=== PATIENT | female | born 1980 | race Caucasian/White ===

== ENCOUNTER 2021-06-21 19:00 | Emergency (ER) | payer OTHER, BC ==
[~2021-06-21] VITALS: Ht 172.7 cm; Wt 84.1 kg
[2021-06-22 00:06] LABS: BASOPHILS # (AUTO) 0.1 X10'3 (0-0.2); EOSINOPHILS # (AUTO) 0.3 X10'3 (0-0.9); MEAN CORPUSCULAR HEMOGLOBIN 18.3 PG (27.0-31.0); MONOCYTES # (AUTO) 0.5 X10'3 (0-0.9); WHITE BLOOD COUNT 5.9 X10'3 (4.5-11.0)
[2021-06-22 00:07] LABS: BASOPHILS % (AUTO) 1.7 % (0-1); EOSINOPHILS % (AUTO) 5.2 % (0-6); HEMATOCRIT 26.4 % (35.0-45.0); HEMOGLOBIN 7.8 g/dl (12.0-16.0); LYMPHOCYTES # (AUTO) 2.7 X10'3 (1.1-4.8); LYMPHOCYTES % (AUTO) 46.4 % (21-51); MEAN CORPUSCULAR HGB CONC 29.6 g/dL (33.0-36.5); MEAN CORPUSCULAR VOLUME 61.9 FL (78-98); MONOCYTES % (AUTO) 8.4 % (2-12); NEUTROPHILS # (AUTO) 2.3 X10'3 (1.8-7.7); NEUTROPHILS % (AUTO) 38.3 % (42-75); PLATELET COUNT 241 X10'3 (140-440); RED BLOOD COUNT 4.27 X10'6 (4.20-5.60); RED CELL DISTRIBUTION WIDTH 20.2 % (11.5-14.5)
[2021-06-22 00:11] LABS: ALBUMIN 3.9 G/DL (3.4-5.0); ANION GAP 13 (8-16); BLOOD UREA NITROGEN 8 MG/DL (7-18); BUN/CREATININE RATIO 12.1 (6.6-38.0); CALCIUM 8.9 MG/DL (8.5-10.1); CHLORIDE 104 MMOL/L (99-107); CREATININE 0.66 MG/DL (0.40-0.90); GLUCOSE 112 MG/DL (70-104); POTASSIUM 3.1 MMOL/L (3.5-5.1); SODIUM 145 MMOL/L (135-145); TOTAL CARBON DIOXIDE 28.5 MMOL/L (24-32); eGFR > 90 ML/MIN
[2021-06-22 00:12] LABS: HCG SERUM QL NEGATIVE
[2021-06-22 00:13] LABS: D-DIMER 0.67 MG/L FEU (0-0.50)
[2021-06-22 01:09] LABS: ANISOCYTOSIS 3+; PLATELET ESTIMATE NORMAL; POLYCHROMASIA FEW
[2021-06-22 01:10] LABS: MICROCYTOSIS 2+
[2021-06-22 01:12] LABS: ELLIPTOCYTES FEW; TARGET CELLS FEW
[2021-06-22] MEDS ORDERED: HYDR20OI TOP (04:07)
[2021-06-22 04:23] VITALS: BP 131/83
== END 2021-06-22 04:25 | disposition home or self-care (01) ==
LOC: ER 19:01
DX: L40.0 Psoriasis vulgaris (principal); R21 Rash and other nonspecific skin eruption; Z79.899 Other long term (current) drug therapy
CPT/HCPCS: 36415; 80048; 84703; 85008; 85025; 85379; 93971; 99284

== ENCOUNTER 2022-06-23 20:11 | Inpatient (IN) | payer OTHER, BC ==
[~2022-06-23] VITALS: Ht 170.2 cm; Wt 81.2 kg
[~2022-06-23 20:11] MED LIST: HYDR20OI TOP
[2022-06-23 20:54] LABS: BASOPHILS # (AUTO) 0.1 X10'3 (0-0.2); BASOPHILS % (AUTO) 1.5 % (0-1); EOSINOPHILS # (AUTO) 0.1 X10'3 (0-0.9); EOSINOPHILS % (AUTO) 1.1 % (0-6); LYMPHOCYTES # (AUTO) 0.7 X10'3 (1.1-4.8); LYMPHOCYTES % (AUTO) 14.3 % (21-51); MEAN CORPUSCULAR HEMOGLOBIN 18.3 PG (27.0-31.0); MEAN CORPUSCULAR HGB CONC 29.1 g/dL (33.0-36.5); MEAN CORPUSCULAR VOLUME 62.8 FL (78-98); MONOCYTES # (AUTO) 0.6 X10'3 (0-0.9); MONOCYTES % (AUTO) 11.7 % (2-12); NEUTROPHILS # (AUTO) 3.4 X10'3 (1.8-7.7); NEUTROPHILS % (AUTO) 71.4 % (42-75); PLATELET COUNT 156 X10'3 (140-440); RED BLOOD COUNT 4.37 X10'6 (4.20-5.60); RED CELL DISTRIBUTION WIDTH 20.9 % (11.5-14.5); WHITE BLOOD COUNT 4.8 X10'3 (4.5-11.0)
[2022-06-23 21:18] LABS: ALANINE AMINOTRANSFERASE 32 U/L (12-78); ALBUMIN/GLOBULIN RATIO 0.9 (1.1-1.5); ALKALINE PHOSPHATASE 80 IU/L (46-116); ANION GAP 21 (8-16); ASPARTATE AMINO TRANSFERASE 61 U/L (10-37); BILIRUBIN,TOTAL 1.6 MG/DL (0.1-1.0); BLOOD UREA NITROGEN 8 MG/DL (7-18); BUN/CREATININE RATIO 9.1 (6.6-38.0); CALCIUM 8.9 MG/DL (8.5-10.1); CHLORIDE 96 MMOL/L (99-107); CREATININE 0.88 MG/DL (0.40-0.90); GLUCOSE 160 MG/DL (70-104); MAGNESIUM 1.7 MG/DL (1.5-2.4); POTASSIUM 3.6 MMOL/L (3.5-5.1); SODIUM 136 MMOL/L (135-145); TOTAL CARBON DIOXIDE 19.3 MMOL/L (24-32); TOTAL PROTEIN 8.5 G/DL (6.4-8.2); eGFR 70 ML/MIN
[2022-06-23 21:23] LABS: HEMATOCRIT 24.5 % (35.0-45.0); HEMOGLOBIN 7.7 g/dl (12.0-16.0)
[2022-06-23 21:28] LABS: ANISOCYTOSIS 3+; MICROCYTOSIS 2+; PLATELET ESTIMATE NORMAL
[2022-06-23 21:29] LABS: ELLIPTOCYTES FEW; HYPOCHROMASIA 1+; TARGET CELLS FEW
--- NOTE | 2022-06-23 22:00 | NUR ---
I agree with Mimi Betancourt assessment.
[2022-06-23] MEDS ORDERED: normal saline 1000ML IV soln IVB ONE (22:20)
[2022-06-23] MEDS ORDERED: TETanus/Pertussis (Acell)/Diphther VAC/PF (Tdap-Adult) 0.5ml syringe IMVAC ONE (22:25)
[2022-06-24] MEDS ORDERED: ondansetron 4mg rapidly disintigrating tab PO ONE (00:10)
[2022-06-24] MEDS ORDERED: ondansetron/PF 4mg/2ml inj IV STA (00:23)
[2022-06-24] MEDS ORDERED: ondansetron/PF 4mg/2ml inj IV ONE (00:25)
[2022-06-24 00:34] LABS: CLARITY,URINE CLEAR (Clear); COLOR,URINE YELLOW (Yellow); GLUCOSE, URINE NEGATIVE (Neg); KETONES,URINE 15 mg/dl (Neg); LEUKOCYTE ESTERASE ,URINE NEGATIVE (Neg); NITRITES, URINE NEGATIVE (Neg); OCCULT BLOOD,URINE MODERATE (Neg); PROTEIN,URINE 30 mg/dl (Neg); URINE HCG NEGATIVE (NEG); UROBILINOGEN,URINE 0.2 E.U/dL (0.2-1.0)
--- NOTE | 2022-06-24 00:35 | NUR ---
PT VOMITED AFTER HAVING A PO ZOFRAN. MD JEAN NOTIFIED AND ORDER RECIEVED FOR IV ZOFRAN. PT REPORTS RELIEF AFTER IV DOSE.
[2022-06-24 00:44] LABS: UA COLLECTION TYPE CLN CATCH MIDSTREAM; WBC,URINE 0-4 /HPF (0-4)
[2022-06-24 00:45] LABS: BACTERIA,URINE FEW /HPF (Neg); SQUAMOUS EPITHELIAL CELL,UR FEW /LPF (FEW)
[2022-06-24 01:03] LABS: URINE AMPHETAMINE SCREEN NEGATIVE (Neg); URINE BARBITUATE SCREEN NEGATIVE (Neg); URINE BENZODIAZEPINES SCREEN NEGATIVE (Neg); URINE CANNABINOID SCREEN NEGATIVE (Neg); URINE COCAINE SCREEN NEGATIVE (Neg); URINE METHADONE SCREEN NEGATIVE (Neg); URINE OPIATE SCREEN NEGATIVE (Neg); URINE PHENCYCLIDINE SCREEN NEGATIVE (Neg)
[2022-06-24] MEDS ORDERED: ondansetron 4mg rapidly disintigrating tab PO PRN (02:45)
[2022-06-24] MEDS ORDERED: morphine 2 MG/ML inj. syringe IV PRN (02:45)
[2022-06-24] MEDS ORDERED: bisacodyl 10mg suppository rectal RC PRN (02:45)
[2022-06-24] MEDS ORDERED: magnesium hydroxide 30ml (MOM) UD suspension PO PRN (02:45)
[2022-06-24] MEDS ORDERED: diphenhydrAMINE 50 mg/ml inj IV PRN (02:45)
[2022-06-24] MEDS ORDERED: HYDROcodone/acetaminophen 5mg/325mg tablet PO PRN (02:45)
[2022-06-24] MEDS ORDERED: diphenhydrAMINE 25mg capsule PO PRN (02:45)
[2022-06-24] MEDS ORDERED: acetaminophen 325mg tablet PO PRN ×2 (02:45)
[2022-06-24] MEDS ORDERED: mag hydrox/Alum hydrox/simeth 30ml oral suspension PO PRN (02:45)
[2022-06-24] MEDS: normal saline 1000ml 1,000 ML IV SCH ×3 (03:04→22:21)
[2022-06-24] MEDS: octreotide inj. 500 MCG in normal saline 100ml IV soln 97.5 ML IV SCH ×2 (03:26→22:09)
[2022-06-24] MEDS ORDERED: BUPR150T8 PO (03:58)
[2022-06-24 04:39] LABS: HEMOGLOBIN A1C 5.6 % (4.5-6.2)
[2022-06-24 05:01] LABS: CREATINE KINASE 666 U/L (26-192); LIPASE 85 U/L (73-393); MAGNESIUM 1.8 MG/DL (1.5-2.4); PHOSPHORUS 3.2 MG/DL (2.3-4.5)
[2022-06-24] MEDS: pantoprazole 40MG/NS 100ML BAG 100 ML IV SCH ×4 (06:07→22:04)
--- NOTE | 2022-06-24 07:44 | NUR ---
received report from ed rn
[2022-06-24 08:20] VITALS: BP 149/84
[2022-06-24] MEDS: morphine 2 MG/ML inj. syringe IV PRN ×2 (08:41→17:23)
[2022-06-24] MEDS: docusate sod 100mg capsule PO SCH ×2 (08:45→19:44)
[2022-06-24 09:10] LABS: PROTHROMBIN TIME 16.4 SECONDS (9-12)
[2022-06-24 09:11] LABS: D-DIMER 0.62 MG/L (0.43-2.62); INR 1.6 INR; PARTIAL THROMBOPLASTIN TIME 33.4 SECONDS (24.5-30.9)
[2022-06-24] MEDS: ondansetron/PF 4mg/2ml inj IV PRN ×2 (10:57→17:21)
[2022-06-24 11:00] VITALS: BP 157/99
[2022-06-24] MEDS ORDERED: magnesium Cl slow-release 64mg tablet PO PRN (11:35)
[2022-06-24] MEDS ORDERED: potassium Cl 40MEQ/1/2NS 520ml 520 ML IV PRN (11:35)
[2022-06-24] MEDS ORDERED: potassium Cl 20 mEq SR tablet PO PRN ×2 (11:35)
[2022-06-24] MEDS ORDERED: magnesium 4gm in 100ml NS 100 ML IV PRN (11:35)
[2022-06-24 12:28] LABS: ALBUMIN 3.6 G/DL (3.4-5.0); ANION GAP 11 (8-16); BLOOD UREA NITROGEN 10 MG/DL (7-18); BUN/CREATININE RATIO 14.5 (6.6-38.0); CALCIUM 8.6 MG/DL (8.5-10.1); CHLORIDE 99 MMOL/L (99-107); CHOLESTEROL 143 MG/DL (0-200); CREATINE KINASE 578 U/L (26-192); CREATININE 0.69 MG/DL (0.40-0.90); GLUCOSE 135 MG/DL (70-104); HDL CHOLESTEROL 48 MG/DL (35-60); LDL CHOLESTEROL 82 MG/DL (50-100); POTASSIUM 3.7 MMOL/L (3.5-5.1); SODIUM 136 MMOL/L (135-145); TOTAL CARBON DIOXIDE 26.3 MMOL/L (24-32); TRIGLYCERIDES 62 MG/DL (20-135); eGFR > 90 ML/MIN
[2022-06-24] MEDS ORDERED: LORazepam 2 mg/ml vial IV ONE (13:10)
[2022-06-24] MEDS ORDERED: iohexol 350MG/ML 100ml bottle IV ONE (13:58)
[2022-06-24] MEDS ORDERED: LORazepam 2 mg/ml vial IV PRN (14:25)
[2022-06-24] MEDS ORDERED: LORazepam 1 MG tablet PO PRN (14:25)
[2022-06-24 16:51] LABS: MEAN PLATELET VOLUME 8.2 FL (7.4-10.4); PLATELET COUNT 102 X10'3 (140-440); WHITE BLOOD COUNT 3.6 X10'3 (4.5-11.0)
[2022-06-24 17:15] LABS: HEMATOCRIT 24.2 % (35.0-45.0); HEMOGLOBIN 7.3 g/dl (12.0-16.0); MEAN CORPUSCULAR HEMOGLOBIN 18.9 PG (27.0-31.0); MEAN CORPUSCULAR HGB CONC 30.1 g/dL (33.0-36.5); MEAN CORPUSCULAR VOLUME 62.6 FL (78-98); RED BLOOD COUNT 3.86 X10'6 (4.20-5.60)
[2022-06-24 18:00] VITALS: BP 142/84
--- NOTE | 2022-06-24 18:47 | NUR ---
gave report to valorie rodriguez
[2022-06-24] MEDS: K and/or MAG REPLACEMENT MC SCH (19:40)
[2022-06-24] MEDS ORDERED: temazepam 15mg capsule PO PRN (21:00)
[2022-06-24 22:00] VITALS: BP 145/78
[2022-06-24] MEDS: thiamine 100mg/ml 2ml inj. IV SCH (22:05)
[2022-06-25] VITALS (8 sets, daily range): BP systolic 139–178; BP diastolic 67–100
[2022-06-25] MEDS: pantoprazole 40MG/NS 100ML BAG 100 ML IV SCH ×4 (03:32→20:23)
--- NOTE | 2022-06-25 06:03 | NUR ---
Problems reprioritized. Patient report given, questions answered & plan of care reviewed with CHRISTINE Spaulding.
--- NOTE | 2022-06-25 06:05 | NUR ---
RECEIVED REPORT FROM CHRISTINE LANDRY
[2022-06-25 06:16] LABS: ALANINE AMINOTRANSFERASE 28 U/L (12-78); ALBUMIN 3.3 G/DL (3.4-5.0); ALBUMIN/GLOBULIN RATIO 0.9 (1.1-1.5); ALKALINE PHOSPHATASE 55 IU/L (46-116); ANION GAP 10 (8-16); ASPARTATE AMINO TRANSFERASE 60 U/L (10-37); BILIRUBIN,TOTAL 1.2 MG/DL (0.1-1.0); BLOOD UREA NITROGEN 11 MG/DL (7-18); BUN/CREATININE RATIO 14.9 (6.6-38.0); CALCIUM 8.4 MG/DL (8.5-10.1); CHLORIDE 102 MMOL/L (99-107); CHOL/HDL RATIO 3.7 (0.00-4.99); CHOLESTEROL 131 MG/DL (0-200); CREATININE 0.74 MG/DL (0.40-0.90); GLUCOSE 117 MG/DL (70-104); HDL CHOLESTEROL 35 MG/DL (35-60); LDL CHOLESTEROL 79 MG/DL (50-100); MAGNESIUM 2.1 MG/DL (1.5-2.4); PHOSPHORUS 2.6 MG/DL (2.3-4.5); POTASSIUM 3.9 MMOL/L (3.5-5.1); SODIUM 137 MMOL/L (135-145); TOTAL CARBON DIOXIDE 24.6 MMOL/L (24-32); TOTAL PROTEIN 7.1 G/DL (6.4-8.2); TRIGLYCERIDES 80 MG/DL (20-135); eGFR 86 ML/MIN
[2022-06-25 06:18] LABS: BASOPHILS % (AUTO) 0.7 % (0-1); EOSINOPHILS # (AUTO) 0.1 X10'3 (0-0.9); EOSINOPHILS % (AUTO) 1.4 % (0-6); LYMPHOCYTES % (AUTO) 26.9 % (21-51); MEAN CORPUSCULAR HEMOGLOBIN 17.5 PG (27.0-31.0); MEAN CORPUSCULAR HGB CONC 27.7 g/dL (33.0-36.5); MEAN CORPUSCULAR VOLUME 63.3 FL (78-98); MEAN PLATELET VOLUME 8.1 FL (7.4-10.4); MONOCYTES # (AUTO) 0.5 X10'3 (0-0.9); MONOCYTES % (AUTO) 13.2 % (2-12); NEUTROPHILS # (AUTO) 2.2 X10'3 (1.8-7.7); NEUTROPHILS % (AUTO) 57.8 % (42-75); PLATELET COUNT 124 X10'3 (140-440); RED BLOOD COUNT 3.81 X10'6 (4.20-5.60); RED CELL DISTRIBUTION WIDTH 20.4 % (11.5-14.5); WHITE BLOOD COUNT 3.8 X10'3 (4.5-11.0)
--- NOTE | 2022-06-25 06:20 | NUR ---
SENT A PAGE ABOUT PT LOW H & H, NO NEW ORDERS AT THIS TIME
[2022-06-25 06:27] LABS: HEMOGLOBIN 6.7 g/dl (12.0-16.0)
[2022-06-25 06:59] LABS: HEMATOCRIT 22.6 % (35.0-45.0)
[2022-06-25] MEDS ORDERED: folic acid 1mg/0.2ml inj IV SCH (08:00)
[2022-06-25] MEDS: K and/or MAG REPLACEMENT MC SCH ×2 (08:00→20:00)
[2022-06-25] MEDS: ondansetron/PF 4mg/2ml inj IV PRN ×3 (08:17→20:54)
[2022-06-25] MEDS: morphine 2 MG/ML inj. syringe IV PRN ×3 (08:19→20:54)
[2022-06-25] MEDS: thiamine 100mg/ml 2ml inj. IV SCH ×3 (08:22→20:34)
[2022-06-25] MEDS: docusate sod 100mg capsule PO SCH ×2 (08:24→20:34)
[2022-06-25] MEDS: multivitamins, therapeutics tablet PO SCH (08:25)
[2022-06-25] MEDS: normal saline 1000ml 1,000 ML IV SCH ×2 (08:30→23:37)
--- NOTE | 2022-06-25 08:46 | NUR ---
Malnutrition consult: Pt admitted w/ seizures. Pt does not think she has lost significant amount of wt recently. Appears WD/WN. Has normal muscle strength, no edema noted. Currently NPO. Pt does not meet minimum criteria for malnutrition at this time. Recommend advancing to Regular diet. Addendum: 06/25/22 at [address] Amended: Links added.
[2022-06-25 10:04] LABS: PLATELET ESTIMATE DECREASED
[2022-06-25 10:05] LABS: ANISOCYTOSIS 3+; HYPOCHROMASIA 2+; MICROCYTOSIS 2+
[2022-06-25 10:06] LABS: POLYCHROMASIA 1+
--- NOTE | 2022-06-25 10:23 | NUR ---
1000 sent a page again to about pt low h and h, no new orders at this time
[2022-06-25 13:05] LABS: HEMATOCRIT 23.6 % (35.0-45.0); HEMOGLOBIN 7.3 g/dl (12.0-16.0); MEAN CORPUSCULAR HEMOGLOBIN 18.9 PG (27.0-31.0); MEAN CORPUSCULAR HGB CONC 30.8 g/dL (33.0-36.5); MEAN CORPUSCULAR VOLUME 61.4 FL (78-98); PLATELET COUNT 140 X10'3 (140-440); RED BLOOD COUNT 3.85 X10'6 (4.20-5.60); RED CELL DISTRIBUTION WIDTH 19.8 % (11.5-14.5); WHITE BLOOD COUNT 4.5 X10'3 (4.5-11.0)
[2022-06-25] MEDS ORDERED: FENTANYL CITRATE/PF 50 MCG/1 ML VIAL ONE (15:33)
[2022-06-25] MEDS ORDERED: LIDOcaine Viscous 15ml cup ONE (15:33)
[2022-06-25] MEDS ORDERED: MIDAZolam 1 MG/ML 5ML VIAL ONE (15:33)
--- NOTE | 2022-06-25 15:36 | NUR ---
PT WHEELED DOWN TO GI LAB
--- NOTE | 2022-06-25 18:10 | NUR ---
Patient in room [facility]. I have received report from CHRISTINE Spaulding and had the opportunity to ask questions and assume patient care.
--- NOTE | 2022-06-25 18:11 | NUR ---
GAVE REPORT TO CHRISTINE KARIMI PT NOT ON FLOOR YET FROM GI LAB
[2022-06-25] MEDS: octreotide inj. 500 MCG in normal saline 100ml IV soln 97.5 ML IV SCH (20:24)
[2022-06-25] MEDS: sodium ferric gluc complex inj 125 MG in normal saline 100ml IV soln 100 ML IV SCH (23:37)
[2022-06-26] VITALS (9 sets, daily range): BP systolic 148–166; BP diastolic 74–95
[2022-06-26] MEDS: ondansetron/PF 4mg/2ml inj IV PRN (05:45)
[2022-06-26] MEDS: morphine 2 MG/ML inj. syringe IV PRN (05:45)
--- NOTE | 2022-06-26 06:15 | NUR ---
Problems reprioritized. Patient report given, questions answered & plan of care reviewed with CHRISTINE Healy.
[2022-06-26 06:31] LABS: BASOPHILS # (AUTO) 0.1 X10'3 (0-0.2); EOSINOPHILS # (AUTO) 0.1 X10'3 (0-0.9); EOSINOPHILS % (AUTO) 2.1 % (0-6); HEMATOCRIT 24.2 % (35.0-45.0); HEMOGLOBIN 7.1 g/dl (12.0-16.0); LYMPHOCYTES # (AUTO) 1.1 X10'3 (1.1-4.8); LYMPHOCYTES % (AUTO) 20.3 % (21-51); MEAN CORPUSCULAR HEMOGLOBIN 18.5 PG (27.0-31.0); MEAN CORPUSCULAR HGB CONC 29.2 g/dL (33.0-36.5); MEAN CORPUSCULAR VOLUME 63.2 FL (78-98); MEAN PLATELET VOLUME 7.9 FL (7.4-10.4); MONOCYTES # (AUTO) 0.6 X10'3 (0-0.9); MONOCYTES % (AUTO) 11.4 % (2-12); NEUTROPHILS # (AUTO) 3.6 X10'3 (1.8-7.7); NEUTROPHILS % (AUTO) 65.2 % (42-75); PLATELET COUNT 142 X10'3 (140-440); RED BLOOD COUNT 3.84 X10'6 (4.20-5.60); RED CELL DISTRIBUTION WIDTH 20.1 % (11.5-14.5); WHITE BLOOD COUNT 5.5 X10'3 (4.5-11.0)
--- NOTE | 2022-06-26 07:16 | NUR ---
Patient in room [facility]. I have received report from Josi KING and had the opportunity to ask questions and assume patient care.
[2022-06-26 07:26] LABS: ALANINE AMINOTRANSFERASE 28 U/L (12-78); ALBUMIN 3.4 G/DL (3.4-5.0); ALBUMIN/GLOBULIN RATIO 0.9 (1.1-1.5); ALKALINE PHOSPHATASE 54 IU/L (46-116); ANION GAP 12 (8-16); ASPARTATE AMINO TRANSFERASE 53 U/L (10-37); BILIRUBIN,TOTAL 1.3 MG/DL (0.1-1.0); BLOOD UREA NITROGEN 10 MG/DL (7-18); BUN/CREATININE RATIO 13.9 (6.6-38.0); CALCIUM 8.5 MG/DL (8.5-10.1); CHLORIDE 99 MMOL/L (99-107); CREATININE 0.72 MG/DL (0.40-0.90); FERRITIN 18 NG/ML (8-252); GLUCOSE 85 MG/DL (70-104); MAGNESIUM 1.8 MG/DL (1.5-2.4); PHOSPHORUS 2.4 MG/DL (2.3-4.5); POTASSIUM 3.5 MMOL/L (3.5-5.1); SODIUM 135 MMOL/L (135-145); TOTAL CARBON DIOXIDE 24.3 MMOL/L (24-32); TOTAL PROTEIN 7.3 G/DL (6.4-8.2); eGFR 89 ML/MIN
[2022-06-26 07:57] LABS: % IRON SATURATION 12 % (11-46); IRON 49 UG/DL (49-151); TOTAL IRON BINDING CAPACITY 411 UG/DL (259-388)
[2022-06-26] MEDS: K and/or MAG REPLACEMENT MC SCH ×2 (08:00→20:00)
[2022-06-26] MEDS: pantoprazole 40mg Tablet.DR PO SCH ×2 (09:05→21:21)
[2022-06-26] MEDS: docusate sod 100mg capsule PO SCH ×2 (09:05→21:20)
[2022-06-26] MEDS: multivitamins, therapeutics tablet PO SCH (09:05)
[2022-06-26] MEDS: thiamine 100mg/ml 2ml inj. IV SCH (09:05)
[2022-06-26] MEDS: sodium ferric gluc complex inj 125 MG in normal saline 100ml IV soln 100 ML IV SCH (09:09)
--- NOTE | 2022-06-26 12:06 | NUR ---
Message: Monet Surg [phone] Re: [facility] pharmacy needs a new dose to change from IV thiamine to PO did you want 100 mg Thiamine PO daily
[2022-06-26 12:24] LABS: PLATELET COUNT 127 X10'3 (140-440); WHITE BLOOD COUNT 5.4 X10'3 (4.5-11.0)
[2022-06-26 12:41] LABS: RED BLOOD COUNT 3.47 X10'6 (4.20-5.60)
[2022-06-26 12:42] LABS: MEAN CORPUSCULAR HEMOGLOBIN 18.7 PG (27.0-31.0); MEAN CORPUSCULAR HGB CONC 30.4 g/dL (33.0-36.5); MEAN CORPUSCULAR VOLUME 61.6 FL (78-98); RED CELL DISTRIBUTION WIDTH 19.7 % (11.5-14.5)
[2022-06-26] MEDS: folic acid 1mg tablet PO SCH (12:44)
[2022-06-26 12:45] LABS: HEMATOCRIT 21.4 % (35.0-45.0); HEMOGLOBIN 6.5 g/dl (12.0-16.0)
--- NOTE | 2022-06-26 13:09 | NUR ---
Message: Monet Christianson [phone] Re: [facility] H&H 6.11/25.4 Addendum: 06/26/22 at 1311 by Monet Perez RN Received orders for 1 unit blood
[2022-06-26] MEDS: thiamine 100mg tablet PO SCH ×2 (14:13→21:21)
[2022-06-26] MEDS: HYDROcodone/acetaminophen 10/325mg tab PO PRN ×2 (16:36→21:26)
--- NOTE | 2022-06-26 18:05 | NUR ---
Patient in room [facility]. I have received report from CHRISTINE Healy and had the opportunity to ask questions and assume patient care.
--- NOTE | 2022-06-26 18:43 | NUR ---
Problems reprioritized. Patient report given, questions answered & plan of care reviewed with Josi KING.
[2022-06-26 22:53] LABS: HEMATOCRIT 26.1 % (35.0-45.0); HEMOGLOBIN 7.7 g/dl (12.0-16.0); MEAN CORPUSCULAR HEMOGLOBIN 18.5 PG (27.0-31.0); MEAN CORPUSCULAR HGB CONC 29.6 g/dL (33.0-36.5); MEAN CORPUSCULAR VOLUME 62.2 FL (78-98); MEAN PLATELET VOLUME 8.1 FL (7.4-10.4); PLATELET COUNT 137 X10'3 (140-440); RED BLOOD COUNT 4.19 X10'6 (4.20-5.60); RED CELL DISTRIBUTION WIDTH 19.5 % (11.5-14.5)
[2022-06-27 06:00] VITALS: BP 152/81
--- NOTE | 2022-06-27 06:10 | NUR ---
Problems reprioritized. Patient report given, questions answered & plan of care reviewed with CHRISTINE Healy.
[2022-06-27 06:49] LABS: BASOPHILS % (AUTO) 0.9 % (0-1); EOSINOPHILS # (AUTO) 0.2 X10'3 (0-0.9); EOSINOPHILS % (AUTO) 4.4 % (0-6); LYMPHOCYTES # (AUTO) 0.9 X10'3 (1.1-4.8); LYMPHOCYTES % (AUTO) 18.6 % (21-51); MEAN PLATELET VOLUME 8.2 FL (7.4-10.4); MONOCYTES # (AUTO) 0.7 X10'3 (0-0.9); MONOCYTES % (AUTO) 14.1 % (2-12); NEUTROPHILS # (AUTO) 2.9 X10'3 (1.8-7.7); PLATELET COUNT 133 X10'3 (140-440); WHITE BLOOD COUNT 4.6 X10'3 (4.5-11.0)
--- NOTE | 2022-06-27 07:07 | NUR ---
Patient in room [facility]. I have received report from Josi KING and had the opportunity to ask questions and assume patient care.
[2022-06-27 07:14] LABS: HEMATOCRIT 25.3 % (35.0-45.0); HEMOGLOBIN 7.7 g/dl (12.0-16.0); MEAN CORPUSCULAR HEMOGLOBIN 18.9 PG (27.0-31.0); MEAN CORPUSCULAR HGB CONC 30.5 g/dL (33.0-36.5); MEAN CORPUSCULAR VOLUME 62.1 FL (78-98); RED BLOOD COUNT 4.07 X10'6 (4.20-5.60)
[2022-06-27 07:25] LABS: ALANINE AMINOTRANSFERASE 26 U/L (12-78); ALBUMIN 3.3 G/DL (3.4-5.0); ALBUMIN/GLOBULIN RATIO 0.8 (1.1-1.5); ALKALINE PHOSPHATASE 62 IU/L (46-116); ANION GAP 12 (8-16); ASPARTATE AMINO TRANSFERASE 40 U/L (10-37); BILIRUBIN,TOTAL 1.6 MG/DL (0.1-1.0); BLOOD UREA NITROGEN 6 MG/DL (7-18); BUN/CREATININE RATIO 8.7 (6.6-38.0); CALCIUM 8.6 MG/DL (8.5-10.1); CHLORIDE 97 MMOL/L (99-107); CREATININE 0.69 MG/DL (0.40-0.90); GLUCOSE 87 MG/DL (70-104); MAGNESIUM 1.7 MG/DL (1.5-2.4); PHOSPHORUS 3.2 MG/DL (2.3-4.5); POTASSIUM 3.1 MMOL/L (3.5-5.1); SODIUM 133 MMOL/L (135-145); TOTAL CARBON DIOXIDE 24.3 MMOL/L (24-32); TOTAL PROTEIN 7.2 G/DL (6.4-8.2); eGFR > 90 ML/MIN
[2022-06-27] MEDS: multivitamins, therapeutics tablet PO SCH (08:00)
[2022-06-27] MEDS: K and/or MAG REPLACEMENT MC SCH (08:00)
[2022-06-27 08:02] LABS: PLATELET ESTIMATE DECREASED
[2022-06-27 08:08] LABS: ANISOCYTOSIS 2+; HYPOCHROMASIA 1+; MICROCYTOSIS 2+; POLYCHROMASIA 2+
[2022-06-27] MEDS: HYDROcodone/acetaminophen 10/325mg tab PO PRN ×2 (09:12→13:24)
[2022-06-27] MEDS: pantoprazole 40mg Tablet.DR PO SCH (09:13)
[2022-06-27] MEDS: docusate sod 100mg capsule PO SCH (09:14)
[2022-06-27] MEDS: thiamine 100mg tablet PO SCH ×2 (09:14→13:24)
[2022-06-27] MEDS: folic acid 1mg tablet PO SCH (09:14)
[2022-06-27] MEDS: sodium ferric gluc complex inj 125 MG in normal saline 100ml IV soln 100 ML IV SCH (09:15)
[2022-06-27 10:00] VITALS: BP 156/89
--- NOTE | 2022-06-27 10:23 | NUR ---
Met with patient for alcohol use and to see if patient wanted any resources for treatment options. Patient has not drank for a week. She got on medication to help her stop drinking. She declined resources from me.
--- NOTE | 2022-06-27 10:33 | NUR ---
Paged Dr Gutierrez patient requesting a muscle relaxant for her spasm to left rib area.
[2022-06-27] MEDS ORDERED: potassium Cl 20 mEq SR tablet PO STA (12:29)
[2022-06-27] MEDS ORDERED: THIA50TA10 PO (13:40)
[2022-06-27] MEDS ORDERED: POTA-207 PO (13:40)
[2022-06-27] MEDS ORDERED: PANT40TA54 PO (13:40)
[2022-06-27] MEDS ORDERED: FERR325T28 PO (13:40)
[2022-06-27] MEDS ORDERED: FOLI1TAB27 PO (13:40)
[2022-06-27] MEDS ORDERED: MULT-25 PO (13:40)
[2022-06-27] MEDS ORDERED: HYDR-3965 PO (13:40)
[2022-06-27] MEDS ORDERED: ASCO-134 PO (13:40)
[2022-06-27] MEDS ORDERED: CYCL-1 PO (13:40)
[2022-06-28] MEDS ORDERED: thiamine 100mg tablet PO SCH (08:00)
[2022-06-30 15:20] LABS: T-TRANSGLUTAMINASE IGA <2 U/mL (0-3)
== END 2022-06-27 14:50 | disposition home or self-care (01) | DRG 100 ==
LOC: ER 20:12 → ED HOLD 06-24 02:49 → SUR 3N 06-24 07:58
PROVIDERS: ADMIT Family Medicine; ATTEND Family Medicine
PROC: 3E0234Z Introduction of Serum, Toxoid and Vaccine into Muscle, Percutaneous Approach (ICD-10-PCS; 2022-06-23)
PROC: 4A00X4Z Measurement of Central Nervous Electrical Activity, External Approach (ICD-10-PCS; 2022-06-24)
PROC: B3251ZZ Computerized Tomography (CT Scan) of Bilateral Common Carotid Arteries using Low Osmolar Contrast (ICD-10-PCS; 2022-06-24)
PROC: B32G1ZZ Computerized Tomography (CT Scan) of Bilateral Vertebral Arteries using Low Osmolar Contrast (ICD-10-PCS; 2022-06-24)
PROC: B32R1ZZ Computerized Tomography (CT Scan) of Intracranial Arteries using Low Osmolar Contrast (ICD-10-PCS; 2022-06-24)
PROC: B3281ZZ Computerized Tomography (CT Scan) of Bilateral Internal Carotid Arteries using Low Osmolar Contrast (ICD-10-PCS; 2022-06-24)
PROC: 0DB98ZX Excision of Duodenum, Via Natural or Artificial Opening Endoscopic, Diagnostic (ICD-10-PCS; principal; 2022-06-25)
PROC: 0DB78ZX Excision of Stomach, Pylorus, Via Natural or Artificial Opening Endoscopic, Diagnostic (ICD-10-PCS; 2022-06-25)
PROC: 0DB48ZX Excision of Esophagogastric Junction, Via Natural or Artificial Opening Endoscopic, Diagnostic (ICD-10-PCS; 2022-06-25)
PROC: 30233N1 Transfusion of Nonautologous Red Blood Cells into Peripheral Vein, Percutaneous Approach (ICD-10-PCS; 2022-06-26)
DX: G40.509 Epileptic seizures related to external causes, not intractable, without status epilepticus (principal); G92.8 Other toxic encephalopathy; K29.81 Duodenitis with bleeding; D62 Acute posthemorrhagic anemia; E87.20 Acidosis, unspecified; E86.0 Dehydration; I10 Essential (primary) hypertension; Z20.822 Contact with and (suspected) exposure to COVID-19; W18.39XA Other fall on same level, initial encounter; K31.89 Other diseases of stomach and duodenum; K21.00 Gastro-esophageal reflux disease with esophagitis, without bleeding; K57.30 Diverticulosis of large intestine without perforation or abscess without bleeding; F10.20 Alcohol dependence, uncomplicated; N92.1 Excessive and frequent menstruation with irregular cycle; K76.0 Fatty (change of) liver, not elsewhere classified; D50.9 Iron deficiency anemia, unspecified; S00.81XA Abrasion of other part of head, initial encounter; R16.1 Splenomegaly, not elsewhere classified; T43.295A Adverse effect of other antidepressants, initial encounter; K44.9 Diaphragmatic hernia without obstruction or gangrene; L40.9 Psoriasis, unspecified; R41.3 Other amnesia; R82.4 Acetonuria; Z87.891 Personal history of nicotine dependence; Z23 Encounter for immunization; Y93.89 Activity, other specified; Y92.098 Other place in other non-institutional residence as the place of occurrence of the external cause; Y99.8 Other external cause status; Z71.41 Alcohol abuse counseling and surveillance of alcoholic
CPT/HCPCS: 36415; 36430; 43239; 70450; 70498; 70551; 71046; 74176; 80048; 80053; 80061; 80305; 81001; 81025; 82140; 82550; 82728; 82948; 83036; 83520; 83540; 83550; 83690; 83735; 83880; 84100; 84443; 84484; 85008; 85025; 85027; 85610; 86885; 86900; 86901; 86920; 87081; 87811; 90471; 90715; 93005; 93306; 95816; 96374; 99152; 99285; A4620; C9113; G0378; J2060; J2250; J2270; J2354; J2405; J2916; J3010; J3411; J3490; J7030; J7040; P9016; Q9967

== ENCOUNTER 2024-04-04 13:34 | Emergency (ER) | payer BC, OTHER ==
[2024-04-04] VITALS (7 sets, daily range): BP systolic 122–132; BP diastolic 81–93; PULSE 93–99; RESP 15–16; TEMP 98.1–98.6; O2SAT 100
[~2024-04-04] VITALS: Ht 172.7 cm; Wt 77.9 kg
[~2024-04-04 13:34] MED LIST changes: +ASCO-134 PO; +CYCL-1 PO; +FOLI1TAB27 PO; -HYDR20OI TOP; +MULT-25 PO; +PANT40TA54 PO; +THIA50TA10 PO
[2024-04-04 14:38] LABS: BASOPHILS # (AUTO) 0.1 X10'3 (0-0.2); EOSINOPHILS # (AUTO) 0.1 X10'3 (0-0.9); EOSINOPHILS % (AUTO) 1.6 % (0-6); LYMPHOCYTES # (AUTO) 1.9 X10'3 (1.1-4.8); MEAN CORPUSCULAR HGB CONC 27.1 g/dL (33.0-36.5); MONOCYTES # (AUTO) 0.4 X10'3 (0-0.9); NEUTROPHILS # (AUTO) 1.3 X10'3 (1.8-7.7); WHITE BLOOD COUNT 3.7 X10'3 (4.5-11.0)
[2024-04-04 14:41] LABS: BASOPHILS % (AUTO) 1.9 % (0-1); LYMPHOCYTES % (AUTO) 50.6 % (21-51); MEAN CORPUSCULAR HEMOGLOBIN 15.5 PG (27.0-31.0); MEAN CORPUSCULAR VOLUME 57.1 FL (78-98); MEAN PLATELET VOLUME 8.1 FL (7.4-10.4); MONOCYTES % (AUTO) 10.7 % (2-12); NEUTROPHILS % (AUTO) 35.2 % (42-75); PLATELET COUNT 173 X10'3 (140-440); RED CELL DISTRIBUTION WIDTH 20.2 % (11.5-14.5)
[2024-04-04 14:54] LABS: ALANINE AMINOTRANSFERASE 22 U/L (12-78); ALBUMIN 3.6 G/DL (3.4-5.0); ALBUMIN/GLOBULIN RATIO 0.8 (1.1-1.5); ALKALINE PHOSPHATASE 59 IU/L (46-116); ANION GAP 9 (8-16); ASPARTATE AMINO TRANSFERASE 61 U/L (10-37); BILIRUBIN,TOTAL 0.7 MG/DL (0.1-1.0); BLOOD UREA NITROGEN 8 MG/DL (7-18); BUN/CREATININE RATIO 12.3 (10.0-20.0); CALCIUM 8.5 MG/DL (8.5-10.1); CHLORIDE 101 MMOL/L (99-107); CREATININE 0.65 MG/DL (0.40-0.90); GLUCOSE 97 MG/DL (70-104); POTASSIUM 3.1 MMOL/L (3.5-5.1); SODIUM 139 MMOL/L (135-145); TOTAL CARBON DIOXIDE 29.1 MMOL/L (24-32); TOTAL PROTEIN 8.3 G/DL (6.4-8.2); eCRCL 111 ML/MIN; eGFR > 90 ML/MIN
[2024-04-04 14:57] LABS: HEMOGLOBIN 6.5 g/dl (12.0-16.0)
[2024-04-04 15:17] LABS: PLATELET ESTIMATE NORMAL
[2024-04-04 15:19] LABS: ANISOCYTOSIS 3+; HYPOCHROMASIA 3+; MICROCYTOSIS 3+; POLYCHROMASIA 1+; TEAR DROP CELLS 1+
[2024-04-04 15:20] LABS: TARGET CELLS FEW
[2024-04-04 15:21] LABS: SCHISTOCYTES FEW
== END 2024-04-04 19:14 | disposition home or self-care (01) ==
LOC: ER 13:35
DX: D64.9 Anemia, unspecified (principal); D50.8 Other iron deficiency anemias; Z72.89 Other problems related to lifestyle; Z79.899 Other long term (current) drug therapy
CPT/HCPCS: 36415; 36430; 80053; 85008; 85025; 86885; 86900; 86901; 86920; 99285; P9016

== ENCOUNTER 2024-06-09 07:04 | Inpatient (IN) | payer OTHER ==
[~2024-06-09] VITALS: Ht 172.7 cm; Wt 80.0 kg
[2024-06-09] VITALS (15 sets, daily range): BP systolic 118–149; BP diastolic 70–92; PULSE 102–150; RESP 15–24; TEMP 98.1–99.1; O2SAT 98–100
[2024-06-09 08:07] LABS: ALANINE AMINOTRANSFERASE 22 U/L (12-78); ALBUMIN 3.4 G/DL (3.4-5.0); ALBUMIN/GLOBULIN RATIO 0.8 (1.1-1.5); ALKALINE PHOSPHATASE 50 IU/L (46-116); AMYLASE 19 U/L (25-115); ANION GAP 15 (8-16); ASPARTATE AMINO TRANSFERASE 35 U/L (10-37); BILIRUBIN,TOTAL 1.3 MG/DL (0.1-1.0); BLOOD UREA NITROGEN 11 MG/DL (7-18); BUN/CREATININE RATIO 10.7 (10.0-20.0); CALCIUM 8.5 MG/DL (8.5-10.1); CHLORIDE 97 MMOL/L (99-107); CREATININE 1.03 MG/DL (0.40-0.90); GLUCOSE 143 MG/DL (70-104); LIPASE 36 U/L (16-77); POTASSIUM 3.1 MMOL/L (3.5-5.1); SODIUM 135 MMOL/L (135-145); TOTAL CARBON DIOXIDE 23.3 MMOL/L (24-32); TOTAL PROTEIN 7.5 G/DL (6.4-8.2); eCRCL 70 ML/MIN; eGFR 58 ML/MIN
[2024-06-09 08:14] LABS: EOSINOPHILS % (AUTO) 0.2 % (0-6); LYMPHOCYTES # (AUTO) 1.1 X10'3 (1.1-4.8); LYMPHOCYTES % (AUTO) 24.7 % (21-51); MEAN CORPUSCULAR HEMOGLOBIN 17.8 PG (27.0-31.0); MEAN CORPUSCULAR HGB CONC 27.8 g/dL (33.0-36.5); MEAN PLATELET VOLUME 8.3 FL (7.4-10.4); MONOCYTES # (AUTO) 0.6 X10'3 (0-0.9); MONOCYTES % (AUTO) 12.8 % (2-12); NEUTROPHILS # (AUTO) 2.7 X10'3 (1.8-7.7); NEUTROPHILS % (AUTO) 61.3 % (42-75); PLATELET COUNT 139 X10'3 (140-440); RED BLOOD COUNT 2.33 X10'6 (4.20-5.60); RED CELL DISTRIBUTION WIDTH 21.8 % (11.5-14.5); WHITE BLOOD COUNT 4.4 X10'3 (4.5-11.0)
[2024-06-09 08:20] LABS: HEMOGLOBIN 4.1 g/dl (12.0-16.0)
[2024-06-09 08:21] LABS: HEMATOCRIT 14.9 % (35.0-45.0)
[2024-06-09 08:32] LABS: BETA HCG,QUANTITATIVE < 1.0 mIU/ml
[2024-06-09 09:28] LABS: ANISOCYTOSIS 3+; MICROCYTOSIS 2+; PLATELET ESTIMATE DECREASED; TOTAL CELLS COUNTED 100
[2024-06-09 09:29] LABS: HYPOCHROMASIA 3+; LARGE PLATELETS FEW; POLYCHROMASIA 1+; STOMATOCYTES 1+; TEAR DROP CELLS FEW
[2024-06-09 09:30] LABS: TARGET CELLS FEW
[2024-06-09 09:31] LABS: APTT 23 SECONDS (22-32); INR 1.3 INR
[2024-06-09 09:33] LABS: ABSOLUTE RETICS # 119400 /CUMM (23000-93000); RETICULOCYTE % (AUTO) 5.1 % (0.5-1.5)
[2024-06-09 09:39] LABS: PROTHROMBIN TIME 13.5 SECONDS (9.0-12.0)
[2024-06-09 11:27] LABS: ETHANOL < 10 MG/DL (<10); MAGNESIUM 1.3 MG/DL (1.5-2.4); PRO BRAIN NATRIURETIC PEPTIDE 70 PG/ML (0-125)
[2024-06-09] MEDS ORDERED: ondansetron 4mg rapidly disintigrating tab PO PRN (12:35)
[2024-06-09] MEDS ORDERED: acetaminophen 325mg tablet PO PRN (12:35)
[2024-06-09] MEDS ORDERED: magnesium sulf-water 4G/100mL 100 ML IV PRN (12:35)
[2024-06-09] MEDS ORDERED: magnesium sulf-water 2g/50mL 50 ML IV PRN (12:35)
[2024-06-09] MEDS ORDERED: morphine 2 MG/ML inj. syringe IV PRN (12:35)
[2024-06-09] MEDS ORDERED: HYDROcodone/acetaminophen 5mg/325mg tablet PO PRN (12:35)
[2024-06-09] MEDS ORDERED: bisacodyl 10mg suppository rectal RC PRN (12:35)
[2024-06-09] MEDS ORDERED: magnesium hydroxide 30ml (MOM) UD suspension PO PRN (12:35)
[2024-06-09] MEDS ORDERED: mag hydrox/Alum hydrox/simeth 30ml oral suspension PO PRN (12:35)
[2024-06-09] MEDS ORDERED: potassium Cl 20 mEq SR tablet PO PRN (12:35)
[2024-06-09] MEDS ORDERED: diphenhydrAMINE 25mg capsule PO PRN (12:35)
[2024-06-09] MEDS ORDERED: metoclopramide 5 mg/ml inj IV PRN (12:35)
[2024-06-09] MEDS ORDERED: potassium Cl 40MEQ/1/2NS 520ml 520 ML IV PRN (12:35)
[2024-06-09] MEDS ORDERED: acetaminophen 650mg rectal suppository RC PRN (12:35)
[2024-06-09] MEDS ORDERED: ondansetron/PF 4mg/2ml inj IV PRN (12:35)
[2024-06-09] MEDS: potassium Cl 20mEq in NS 1,000 ML IV SCH (12:35)
[2024-06-09] MEDS ORDERED: HYDROcodone/acetaminophen 10/325mg tab PO PRN (12:35)
[2024-06-09] MEDS ORDERED: magnesium Cl slow-release 64mg tablet PO PRN (12:35)
[2024-06-09] MEDS: potassium Cl 20 mEq SR tablet PO STA (13:01)
[2024-06-09 13:04] LABS: PHOSPHORUS 4.1 MG/DL (2.3-4.5)
[2024-06-09] MEDS: potassium Cl 20 mEq SR tablet PO PRN (16:10)
[2024-06-09] MEDS: magnesium sulf-water 2g/50mL 50 ML IV ONE (16:46)
[2024-06-09] MEDS ORDERED: potassium Cl 20 mEq SR tablet PO SCH (17:05)
[2024-06-09] MEDS: diphenhydrAMINE 50 mg/ml inj IV PRN (17:08)
[2024-06-09] MEDS: diphenhydrAMINE 25mg capsule PO ONE (17:12)
[2024-06-09] MEDS: ringers solution, lacted 1,000 ML IV ONE (17:13)
[2024-06-09] MEDS: potassium CL 10mEq/100ml bag 100 ML IV ONE (17:17)
[2024-06-09] MEDS: magnesium oxide 400mg tablet PO ONE (17:21)
[2024-06-09] MEDS: potassium Cl 20 mEq SR tablet PO ONE (17:22)
[2024-06-09 19:36] LABS: BASOPHILS # (AUTO) 0.1 X10'3 (0-0.2); EOSINOPHILS % (AUTO) 0.1 % (0-6); MEAN CORPUSCULAR VOLUME 72.2 FL (78-98); MEAN PLATELET VOLUME 8.5 FL (7.4-10.4); MONOCYTES # (AUTO) 0.7 X10'3 (0-0.9); WHITE BLOOD COUNT 4.7 X10'3 (4.5-11.0)
[2024-06-09] MEDS: docusate sod 100mg capsule PO SCH (19:36)
[2024-06-09 19:37] LABS: BASOPHILS % (AUTO) 1.4 % (0-1); LYMPHOCYTES % (AUTO) 20.7 % (21-51); MEAN CORPUSCULAR HGB CONC 31.9 g/dL (33.0-36.5); MONOCYTES % (AUTO) 14.6 % (2-12); NEUTROPHILS % (AUTO) 63.2 % (42-75); PLATELET COUNT 117 X10'3 (140-440); RED BLOOD COUNT 2.66 X10'6 (4.20-5.60); RED CELL DISTRIBUTION WIDTH 29.4 % (11.5-14.5)
[2024-06-09 19:44] LABS: HEMATOCRIT 19.2 % (35.0-45.0); HEMOGLOBIN 6.1 g/dl (12.0-16.0)
[2024-06-09 19:47] LABS: ALANINE AMINOTRANSFERASE 17 U/L (12-78); ALBUMIN 3.1 G/DL (3.4-5.0); ALBUMIN/GLOBULIN RATIO 0.8 (1.1-1.5); ALKALINE PHOSPHATASE 40 IU/L (46-116); ANION GAP 7 (8-16); ASPARTATE AMINO TRANSFERASE 30 U/L (10-37); BILIRUBIN,TOTAL 2.8 MG/DL (0.1-1.0); BLOOD UREA NITROGEN 16 MG/DL (7-18); BUN/CREATININE RATIO 20.3 (10.0-20.0); CALCIUM 8.2 MG/DL (8.5-10.1); CHLORIDE 101 MMOL/L (99-107); CREATININE 0.79 MG/DL (0.40-0.90); GLUCOSE 109 MG/DL (70-104); POTASSIUM 3.8 MMOL/L (3.5-5.1); SODIUM 137 MMOL/L (135-145); TOTAL CARBON DIOXIDE 29.5 MMOL/L (24-32); TOTAL PROTEIN 6.9 G/DL (6.4-8.2); eCRCL 92 ML/MIN; eGFR 79 ML/MIN
[2024-06-09] MEDS ORDERED: tranexamic acid 100mg/ml inj. IV ONE (20:35)
[2024-06-09] MEDS ORDERED: temazepam 15mg capsule PO PRN (21:00)
[2024-06-09] MEDS ORDERED: estrogens, conjugated 25mg inj IV ONE (21:30)
[2024-06-09] MEDS: estrogens, conjugated 25mg inj IV ONE (22:32)
[2024-06-09] MEDS: K and/or MAG REPLACEMENT MC SCH (23:30)
[2024-06-09] MEDS: tranexamic acid inj. 800 MG in normal saline 100ml IV soln 92 ML IV ONE (23:47)
[2024-06-10] VITALS (14 sets, daily range): BP systolic 112–144; BP diastolic 68–94; PULSE 92–140; RESP 12–22; TEMP 97.5–99; O2SAT 93–99
[2024-06-10] MEDS ORDERED: FERR-97 PO (01:09)
[2024-06-10 04:17] LABS: BASOPHILS # (AUTO) 0.1 X10'3 (0-0.2); EOSINOPHILS # (AUTO) 0.1 X10'3 (0-0.9); LYMPHOCYTES # (AUTO) 1.5 X10'3 (1.1-4.8); MEAN PLATELET VOLUME 8.3 FL (7.4-10.4); MONOCYTES # (AUTO) 0.6 X10'3 (0-0.9); WHITE BLOOD COUNT 5.3 X10'3 (4.5-11.0)
[2024-06-10 04:18] LABS: BASOPHILS % (AUTO) 1.1 % (0-1); LYMPHOCYTES % (AUTO) 28.4 % (21-51); MEAN CORPUSCULAR HEMOGLOBIN 24.1 PG (27.0-31.0); MEAN CORPUSCULAR HGB CONC 31.9 g/dL (33.0-36.5); MEAN CORPUSCULAR VOLUME 75.8 FL (78-98); MONOCYTES % (AUTO) 11.9 % (2-12); NEUTROPHILS % (AUTO) 57.6 % (42-75); PLATELET COUNT 126 X10'3 (140-440); RED BLOOD COUNT 2.55 X10'6 (4.20-5.60); RED CELL DISTRIBUTION WIDTH 29.6 % (11.5-14.5)
[2024-06-10 04:24] LABS: HEMATOCRIT 19.3 % (35.0-45.0); HEMOGLOBIN 6.2 g/dl (12.0-16.0)
[2024-06-10 04:39] LABS: PLATELET ESTIMATE DECREASED
[2024-06-10 04:40] LABS: ALANINE AMINOTRANSFERASE 17 U/L (12-78); ALBUMIN 2.9 G/DL (3.4-5.0); ALBUMIN/GLOBULIN RATIO 0.9 (1.1-1.5); ALKALINE PHOSPHATASE 40 IU/L (46-116); ANION GAP 7 (8-16); ANISOCYTOSIS 3+; ASPARTATE AMINO TRANSFERASE 27 U/L (10-37); BILIRUBIN,TOTAL 2.4 MG/DL (0.1-1.0); BLOOD UREA NITROGEN 15 MG/DL (7-18); BUN/CREATININE RATIO 19.5 (10.0-20.0); CALCIUM 8.1 MG/DL (8.5-10.1); CHLORIDE 103 MMOL/L (99-107); CREATININE 0.77 MG/DL (0.40-0.90); GLUCOSE 101 MG/DL (70-104); HYPOCHROMASIA 2+; MAGNESIUM 1.8 MG/DL (1.5-2.4); MICROCYTOSIS 1+; POIKILOCYTOSIS FEW; POLYCHROMASIA 1+; POTASSIUM 3.8 MMOL/L (3.5-5.1); SODIUM 138 MMOL/L (135-145); STOMATOCYTES 1+; TEAR DROP CELLS FEW; TOTAL CARBON DIOXIDE 27.7 MMOL/L (24-32); TOTAL PROTEIN 6.3 G/DL (6.4-8.2); eCRCL 94 ML/MIN; eGFR 81 ML/MIN
[2024-06-10 09:44] LABS: HEMATOCRIT 25.1 % (35.0-45.0); HEMOGLOBIN 7.9 g/dl (12.0-16.0); MEAN CORPUSCULAR HEMOGLOBIN 25.7 PG (27.0-31.0); MEAN CORPUSCULAR HGB CONC 31.6 g/dL (33.0-36.5); MEAN CORPUSCULAR VOLUME 81.6 FL (78-98); MEAN PLATELET VOLUME 8.3 FL (7.4-10.4); PLATELET COUNT 129 X10'3 (140-440); RED BLOOD COUNT 3.08 X10'6 (4.20-5.60); RED CELL DISTRIBUTION WIDTH 27.6 % (11.5-14.5); WHITE BLOOD COUNT 5.5 X10'3 (4.5-11.0)
[2024-06-10 12:46] LABS: PLATELET COUNT 120 X10'3 (140-440)
[2024-06-10 12:48] LABS: HEMATOCRIT 25.8 % (35.0-45.0); HEMOGLOBIN 8.2 g/dl (12.0-16.0); MEAN CORPUSCULAR HEMOGLOBIN 25.9 PG (27.0-31.0); MEAN CORPUSCULAR HGB CONC 31.7 g/dL (33.0-36.5); MEAN CORPUSCULAR VOLUME 81.7 FL (78-98); MEAN PLATELET VOLUME 8.4 FL (7.4-10.4); RED BLOOD COUNT 3.16 X10'6 (4.20-5.60); RED CELL DISTRIBUTION WIDTH 26.9 % (11.5-14.5); WHITE BLOOD COUNT 5.7 X10'3 (4.5-11.0)
[2024-06-10] MEDS: LORazepam 2 mg/ml vial IV ONE (13:32)
[2024-06-10 13:58] LABS: D-DIMER 0.37 MG/L FEU (0-0.50)
[2024-06-10 16:15] LABS: HEMATOCRIT 23.5 % (35.0-45.0); HEMOGLOBIN 7.7 g/dl (12.0-16.0); MEAN CORPUSCULAR HEMOGLOBIN 25.9 PG (27.0-31.0); MEAN CORPUSCULAR HGB CONC 32.6 g/dL (33.0-36.5); MEAN CORPUSCULAR VOLUME 79.4 FL (78-98); MEAN PLATELET VOLUME 8.2 FL (7.4-10.4); PLATELET COUNT 124 X10'3 (140-440); RED BLOOD COUNT 2.97 X10'6 (4.20-5.60); RED CELL DISTRIBUTION WIDTH 26.8 % (11.5-14.5); WHITE BLOOD COUNT 7.1 X10'3 (4.5-11.0)
[2024-06-10] MEDS: acetaminophen 325mg tablet PO PRN (16:30)
[2024-06-10 19:46] LABS: HEMATOCRIT 26.6 % (35.0-45.0); HEMOGLOBIN 8.6 g/dl (12.0-16.0); MEAN CORPUSCULAR HEMOGLOBIN 25.8 PG (27.0-31.0); MEAN CORPUSCULAR HGB CONC 32.3 g/dL (33.0-36.5); MEAN PLATELET VOLUME 8.2 FL (7.4-10.4); PLATELET COUNT 158 X10'3 (140-440); RED BLOOD COUNT 3.33 X10'6 (4.20-5.60); RED CELL DISTRIBUTION WIDTH 27.2 % (11.5-14.5); WHITE BLOOD COUNT 9.7 X10'3 (4.5-11.0)
[2024-06-10 21:56] LABS: URINE AMPHETAMINE SCREEN NEGATIVE (Neg); URINE BARBITUATE SCREEN NEGATIVE (Neg); URINE BENZODIAZEPINES SCREEN NEGATIVE (Neg); URINE CANNABINOID SCREEN NEGATIVE (Neg); URINE COCAINE SCREEN NEGATIVE (Neg); URINE METHADONE SCREEN NEGATIVE (Neg); URINE OPIATE SCREEN NEGATIVE (Neg); URINE PHENCYCLIDINE SCREEN NEGATIVE (Neg)
[2024-06-10] MEDS: normal saline 1000ml 1,000 ML IV SCH (23:47)
[2024-06-11] VITALS (8 sets, daily range): BP systolic 114–133; BP diastolic 70–80; PULSE 70–99; RESP 16–23; TEMP 97.4–99.2; O2SAT 97–99
[2024-06-11 08:06] LABS: BASOPHILS # (AUTO) 0.1 X10'3 (0-0.2); BASOPHILS % (AUTO) 1.1 % (0-1); EOSINOPHILS % (AUTO) 0.9 % (0-6); HEMATOCRIT 22.1 % (35.0-45.0); LYMPHOCYTES % (AUTO) 18.6 % (21-51); MEAN CORPUSCULAR HEMOGLOBIN 25.8 PG (27.0-31.0); MEAN CORPUSCULAR HGB CONC 31.7 g/dL (33.0-36.5); MEAN CORPUSCULAR VOLUME 81.6 FL (78-98); MEAN PLATELET VOLUME 8.2 FL (7.4-10.4); MONOCYTES # (AUTO) 0.6 X10'3 (0-0.9); MONOCYTES % (AUTO) 10.6 % (2-12); NEUTROPHILS # (AUTO) 3.6 X10'3 (1.8-7.7); NEUTROPHILS % (AUTO) 68.8 % (42-75); PLATELET COUNT 108 X10'3 (140-440); RED BLOOD COUNT 2.71 X10'6 (4.20-5.60); RED CELL DISTRIBUTION WIDTH 27.5 % (11.5-14.5); WHITE BLOOD COUNT 5.2 X10'3 (4.5-11.0)
[2024-06-11 08:22] LABS: ALANINE AMINOTRANSFERASE 18 U/L (12-78); ALBUMIN 2.7 G/DL (3.4-5.0); ALBUMIN/GLOBULIN RATIO 0.8 (1.1-1.5); ALKALINE PHOSPHATASE 42 IU/L (46-116); ANION GAP 7 (8-16); ASPARTATE AMINO TRANSFERASE 44 U/L (10-37); BILIRUBIN,TOTAL 1.3 MG/DL (0.1-1.0); BLOOD UREA NITROGEN 7 MG/DL (7-18); BUN/CREATININE RATIO 10.1 (10.0-20.0); CALCIUM 7.8 MG/DL (8.5-10.1); CHLORIDE 105 MMOL/L (99-107); CREATININE 0.69 MG/DL (0.40-0.90); GLUCOSE 98 MG/DL (70-104); MAGNESIUM 1.7 MG/DL (1.5-2.4); POTASSIUM 3.7 MMOL/L (3.5-5.1); SODIUM 137 MMOL/L (135-145); TOTAL CARBON DIOXIDE 24.9 MMOL/L (24-32); TOTAL PROTEIN 6.1 G/DL (6.4-8.2); eCRCL 105 ML/MIN; eGFR > 90 ML/MIN
[2024-06-11 13:22] LABS: HEMATOCRIT 23.9 % (35.0-45.0); HEMOGLOBIN 7.6 g/dl (12.0-16.0); MEAN CORPUSCULAR HEMOGLOBIN 25.9 PG (27.0-31.0); MEAN CORPUSCULAR HGB CONC 31.8 g/dL (33.0-36.5); MEAN CORPUSCULAR VOLUME 81.2 FL (78-98); MEAN PLATELET VOLUME 7.5 FL (7.4-10.4); PLATELET COUNT 117 X10'3 (140-440); RED BLOOD COUNT 2.94 X10'6 (4.20-5.60); RED CELL DISTRIBUTION WIDTH 27.5 % (11.5-14.5); WHITE BLOOD COUNT 4.6 X10'3 (4.5-11.0)
== END 2024-06-11 17:57 | disposition home or self-care (01) | DRG 812 ==
LOC: ER 07:05 → ED HOLD 12:42 → ORTHO 4S 17:55 → PCU 3S 23:30
PROVIDERS: ADMIT Family Medicine; ATTEND Family Medicine
PROC: 30233N1 Transfusion of Nonautologous Red Blood Cells into Peripheral Vein, Percutaneous Approach (ICD-10-PCS; principal; 2024-06-09)
DX: D62 Acute posthemorrhagic anemia (principal); N93.8 Other specified abnormal uterine and vaginal bleeding; G25.81 Restless legs syndrome; K21.9 Gastro-esophageal reflux disease without esophagitis; K44.9 Diaphragmatic hernia without obstruction or gangrene; K57.30 Diverticulosis of large intestine without perforation or abscess without bleeding; K76.0 Fatty (change of) liver, not elsewhere classified; I50.9 Heart failure, unspecified; I11.0 Hypertensive heart disease with heart failure; E86.1 Hypovolemia; E83.42 Hypomagnesemia; E87.6 Hypokalemia; N92.0 Excessive and frequent menstruation with regular cycle; Z79.899 Other long term (current) drug therapy
CPT/HCPCS: 36415; 36430; 70450; 71045; 76830; 76856; 80053; 80305; 80320; 82150; 82948; 83690; 83735; 83880; 84100; 84132; 84702; 85007; 85008; 85025; 85027; 85045; 85240; 85250; 85379; 85610; 85730; 86885; 86900; 86901; 86920; 87081; 93005; 93976; 99291; A4615; G0378; J1200; J1410; J2060; J3480; J3490; J7030; J7040; J7120; P9016

== ENCOUNTER 2024-09-20 09:25 | Inpatient (IN) | payer OTHER, MEDICAID ==
[~2024-09-20] VITALS: Ht 172.7 cm; Wt 70.8 kg
[~2024-09-20 09:25] MED LIST changes: -ASCO-134 PO; +FERR-97 PO; -FOLI1TAB27 PO; -THIA50TA10 PO
[2024-09-20] MEDS: normal saline 1000ml 1,000 ML IV ONE (09:57)
[2024-09-20] MEDS: LORazepam 2 mg/ml vial IV ONE (10:00)
[2024-09-20] MEDS: dextrose 50%-water 50ml dispensing syringe IV ONE ×3 (10:08→18:46)
[2024-09-20 10:57] LABS: ALBUMIN 2.6 G/DL (3.4-5.0); ANION GAP 31 (8-16); BLOOD UREA NITROGEN 16 MG/DL (7-18); BUN/CREATININE RATIO 7.4 (10.0-20.0); CHLORIDE 95 MMOL/L (99-107); CREATININE 2.16 MG/DL (0.40-0.90); GLUCOSE 153 MG/DL (70-104); MAGNESIUM 1.1 MG/DL (1.5-2.4); SODIUM 138 MMOL/L (135-145); eCRCL 34 ML/MIN; eGFR 25 ML/MIN
[2024-09-20 11:08] LABS: APTT 37 SECONDS (22-32); INR 1.7 INR; PROTHROMBIN TIME 17.2 SECONDS (9.0-12.0)
[2024-09-20 11:20] LABS: ETHANOL < 10 MG/DL (<10); PRO BRAIN NATRIURETIC PEPTIDE 8116 PG/ML (0-125)
[2024-09-20] MEDS ORDERED: ondansetron/PF 4mg/2ml inj IV PRN (11:25)
[2024-09-20] MEDS ORDERED: potassium Cl 40MEQ/1/2NS 520ml 520 ML IV PRN ×2 (11:25→17:40)
[2024-09-20] MEDS ORDERED: magnesium sulf-water 4G/100mL 100 ML IV PRN ×2 (11:25→17:40)
[2024-09-20] MEDS ORDERED: potassium Cl 20 mEq SR tablet PO PRN ×4 (11:25→17:40)
[2024-09-20] MEDS ORDERED: mag hydrox/Alum hydrox/simeth 30ml oral suspension PO PRN ×2 (11:25→17:40)
[2024-09-20] MEDS ORDERED: magnesium sulf-water 2g/50mL 50 ML IV PRN (11:25)
[2024-09-20] MEDS ORDERED: acetaminophen 325mg tablet PO PRN ×2 (11:25→17:40)
[2024-09-20] MEDS ORDERED: magnesium hydroxide 30ml (MOM) UD suspension PO PRN ×2 (11:25→17:40)
[2024-09-20 11:28] LABS: LACTATE DEHYDROGENASE 335 U/L (81-234)
[2024-09-20] MEDS: normal saline 1000ml 1,000 ML IV SCH (11:28)
[2024-09-20 11:59] LABS: ABG BASE EXCESS -16.6 mmol/L (-2.0-3.0); ABG OXYGEN SATURATION 94.8 % (94.0-98.0); ABG PCO2 (T) 21.6 mmHg (32.0-45.0); ALLEN'S TEST POSITIVE; FCOHb 0.4 % (0.5-1.5); FHHb 5.2 % (0.0-5.0); FLOW 0 L/min; FMetHb 0.3 % (0.0-1.5); FO2Hb 94.1 % (94.0-98.0); MODE RA; PATIENT TEMPERATURE 37.1; TOTAL HEMOGLOBIN 9.4 G/dl (12.0-16.0)
[2024-09-20 12:19] LABS: LYMPHOCYTES # (AUTO) 0.5 X10'3 (1.1-4.8); MONOCYTES # (AUTO) 0.9 X10'3 (0-0.9); WHITE BLOOD COUNT 9.1 X10'3 (4.5-11.0)
[2024-09-20 12:21] LABS: BASOPHILS % (AUTO) 0.4 % (0-1); EOSINOPHILS # (AUTO) 0.6 X10'3 (0-0.9); EOSINOPHILS % (AUTO) 6.6 % (0-6); HEMOGLOBIN 8.9 g/dl (12.0-16.0); LYMPHOCYTES % (AUTO) 5.6 % (21-51); MEAN PLATELET VOLUME 8.7 FL (7.4-10.4); MONOCYTES % (AUTO) 10.3 % (2-12); NEUTROPHILS % (AUTO) 77.1 % (42-75)
[2024-09-20] MEDS: sodium bicarbonate (8.4%) inj. 100 MEQ in dextrose 5%-water 1,000 ML IV SCH (12:45)
[2024-09-20 12:46] LABS: PLATELET COUNT 44 X10'3 (140-440)
[2024-09-20 12:50] LABS: HEMATOCRIT 29.4 % (35.0-45.0); MEAN CORPUSCULAR HEMOGLOBIN 20.5 PG (27.0-31.0); MEAN CORPUSCULAR HGB CONC 30.3 g/dL (33.0-36.5); MEAN CORPUSCULAR VOLUME 67.7 FL (78-98); RED BLOOD COUNT 4.34 X10'6 (4.20-5.60)
[2024-09-20 12:51] LABS: RED CELL DISTRIBUTION WIDTH 18.5 % (11.5-14.5)
[2024-09-20 12:58] LABS: BILIRUBIN,URINE MODERATE (Neg); CLARITY,URINE TURBID (Clear); COLOR,URINE YELLOW (Yellow); GLUCOSE, URINE NEGATIVE (Neg); KETONES,URINE TRACE mg/dl (Neg); LEUKOCYTE ESTERASE ,URINE SMALL (Neg); NITRITES, URINE NEGATIVE (Neg); OCCULT BLOOD,URINE LARGE (Neg); PROTEIN,URINE >=300 mg/dl (Neg)
[2024-09-20 12:59] LABS: UA COLLECTION TYPE STRAIGHT CATH; URINE HCG NEGATIVE (NEG)
[2024-09-20] MEDS: thiamine 100mg tablet PO SCH (13:00)
[2024-09-20 13:11] LABS: URINE AMPHETAMINE SCREEN NEGATIVE (Neg); URINE BARBITUATE SCREEN NEGATIVE (Neg); URINE BENZODIAZEPINES SCREEN NEGATIVE (Neg); URINE CANNABINOID SCREEN NEGATIVE (Neg); URINE COCAINE SCREEN NEGATIVE (Neg); URINE METHADONE SCREEN NEGATIVE (Neg); URINE OPIATE SCREEN NEGATIVE (Neg); URINE PHENCYCLIDINE SCREEN NEGATIVE (Neg)
[2024-09-20 13:13] LABS: BACTERIA,URINE 2+ /HPF (Neg); SQUAMOUS EPITHELIAL CELL,UR FEW /LPF (FEW)
[2024-09-20 13:14] LABS: TRANSITIONAL EPI CELLS,URINE FEW /HPF; WBC,URINE 50-100 /HPF (0-4)
[2024-09-20 13:15] LABS: WBC CLUMPS,URINE MODERATE /HPF (NEGATIVE)
[2024-09-20 13:27] LABS: NUCLEATED RED BLOOD CELLS 1 /100WBC (0-0); TOTAL CELLS COUNTED 100
[2024-09-20 13:28] LABS: PLATELET ESTIMATE DECREASED
[2024-09-20 13:29] LABS: ANISOCYTOSIS 2+; MICROCYTOSIS 1+
[2024-09-20 13:31] LABS: HYPOCHROMASIA 1+
[2024-09-20 13:34] LABS: POLYCHROMASIA FEW; STOMATOCYTES FEW
[2024-09-20 13:58] LABS: OCCULT BLOOD STOOL POSITIVE (Neg)
[2024-09-20] MEDS: LORazepam 2 mg/ml vial IV PRN ×2 (15:12→15:34)
[2024-09-20] MEDS: CefTRIAXone/D5W-Rocephin 1gm 50 ML IV SCH (15:14)
[2024-09-20] MEDS: ringers solution, lacted 1,000 ML IV STA (15:14)
[2024-09-20] MEDS: ringers solution, lacted 1,000 ML IV ONE ×2 (15:14→22:41)
[2024-09-20] MEDS: levoFLOXACIN-Levaquin 750MG/D5 150 ML IV SCH (15:25)
[2024-09-20] MEDS: NORepinephrine 8mg/ 250ml NS 250 ML IV PRN (15:59)
[2024-09-20] MEDS: diazepam inj 5 MG/ML inj. IV ONE ×3 (16:09→16:13)
[2024-09-20] MEDS: diazepam inj 5 MG/ML inj. ONE (16:12)
[2024-09-20 16:39] VITALS: BP 61/30; PULSE 141; RESP 18; O2SAT 100
[2024-09-20] MEDS: dexmedetomidin/NS 400mcg/100ml 100 ML IV SCH (16:41)
[2024-09-20] MEDS ORDERED: fentaNYL/PF 50MCG/1 ML 2ML syringe IV PRN (17:10)
[2024-09-20 17:11] LABS: ABG BASE EXCESS -15.9 mmol/L (-2.0-3.0); ABG HCO3 11.9 mmol/L (21.0-28.0); ABG OXYGEN SATURATION 98.8 % (94.0-98.0); ABG PCO2 (T) 39.8 mmHg (32.0-45.0); ABG PH (T) 7.108 (7.350-7.450); ABG PO2 (T) 166.9 mmHg (83.0-108.0); ALLEN'S TEST POSITIVE; FCOHb 0.7 % (0.5-1.5); FHHb 1.2 % (0.0-5.0); FMetHb 0.4 % (0.0-1.5); FO2Hb 97.7 % (94.0-98.0); MODE VENT - AC; PATIENT TEMPERATURE 39.5; PEEP 5 cm H2O; RESPIRATORY RATE 18 b/min; TIDAL VOLUME 400 mL; TOTAL HEMOGLOBIN 8.9 G/dl (12.0-16.0)
[2024-09-20] MEDS ORDERED: magnesium Cl slow-release 64mg tablet PO PRN (17:40)
[2024-09-20 17:51] LABS: ALANINE AMINOTRANSFERASE 39 U/L (12-78); ALBUMIN 2.2 G/DL (3.4-5.0); ALBUMIN/GLOBULIN RATIO 0.6 (1.1-1.5); ALKALINE PHOSPHATASE 43 IU/L (46-116); ANION GAP 26 (8-16); ASPARTATE AMINO TRANSFERASE 125 U/L (10-37); BILIRUBIN,TOTAL 3.9 MG/DL (0.1-1.0); BLOOD UREA NITROGEN 19 MG/DL (7-18); BUN/CREATININE RATIO 6.8 (10.0-20.0); CALCIUM 7.5 MG/DL (8.5-10.1); CHLORIDE 96 MMOL/L (99-107); CREATININE 2.78 MG/DL (0.40-0.90); GLUCOSE 95 MG/DL (70-104); POTASSIUM 3.6 MMOL/L (3.5-5.1); SODIUM 136 MMOL/L (135-145); TOTAL PROTEIN 6.1 G/DL (6.4-8.2); eCRCL 26 ML/MIN; eGFR 19 ML/MIN
[2024-09-20 17:55] LABS: TOTAL CARBON DIOXIDE 13.8 MMOL/L (24-32)
[2024-09-20] MEDS: albumin (human) 25% 100 ML IV solution IV ONE (18:06)
[2024-09-20] MEDS: FENTANYL-0.9 % NACL/PF 100 ML IV SCH (18:07)
[2024-09-20] MEDS: midazolam 100mg in NS 100ml 100 ML IV SCH (18:08)
[2024-09-20] MEDS: VANCOMYCIN 2GM/400ML H20 (PEG) 400 ML IV ONE (18:08)
[2024-09-20] MEDS: sodium bicarbonate 1meq/ml inj 150 ML in dextrose 5%-water 1,000 ML IV SCH (18:09)
[2024-09-20] MEDS ORDERED: rocuronium 10mg/ml inj IV ONE (18:30)
[2024-09-20] MEDS ORDERED: dextrose 50%-water 50ml dispensing syringe IV PRN (18:40)
[2024-09-20] MEDS ORDERED: glucagon, human recombinant 1mg kit SUBCUT PRN (18:40)
[2024-09-20] MEDS ORDERED: DEXTROSE 15 GM of carb/4 tabs (each vial/BOTTLE has 4 tablets) PO PRN ×2 (18:40)
[2024-09-20] MEDS: dextrose 50%-water 50ml dispensing syringe IV PRN (18:45)
[2024-09-20 19:00] VITALS: BP 113/54; PULSE 140; RESP 18; O2SAT 100
[2024-09-20] MEDS: K and/or MAG REPLACEMENT MC SCH (20:00)
[2024-09-20] MEDS: docusate sod 100mg capsule PO SCH (20:00)
[2024-09-20] MEDS ORDERED: docusate sod 100mg capsule PO SCH (20:00)
[2024-09-20] MEDS ORDERED: K and/or MAG REPLACEMENT MC SCH (20:00)
[2024-09-20] MEDS: CefTRIAXone 2gm/D5W 50ml BAG 50 ML IV SCH (20:25)
[2024-09-20] MEDS: acetaminophen 1,000mg/100ml IV 100 ML IV ONE (20:26)
[2024-09-20 20:55] LABS: FIBRINOGEN 424 MG/DL (177-424)
[2024-09-20 21:21] VITALS: BP 126/70; PULSE 138; RESP 25; O2SAT 100
[2024-09-20] MEDS: midazolam 1 mg/ML 2ml injection IV ONE (21:43)
[2024-09-20] MEDS ORDERED: normal saline 1000ml 1,000 ML IV ONE (22:25)
[2024-09-20 22:59] VITALS: BP 96/51; PULSE 128; RESP 19; O2SAT 100
[2024-09-21] VITALS (12 sets, daily range): BP systolic 84–123; BP diastolic 44–63; PULSE 111–161; RESP 17–21; O2SAT 91–100
[2024-09-21] MEDS: PHENYLephrine 10mg/ml inj. 50 MG in normal saline 250ml IV soln 245 ML IV SCH (01:18)
[2024-09-21 01:46] LABS: EOSINOPHILS # (AUTO) 0.4 X10'3 (0-0.9); MONOCYTES # (AUTO) 0.3 X10'3 (0-0.9); NEUTROPHILS # (AUTO) 4.4 X10'3 (1.8-7.7); WHITE BLOOD COUNT 5.6 X10'3 (4.5-11.0)
[2024-09-21 01:48] LABS: BASOPHILS % (AUTO) 0.4 % (0-1); EOSINOPHILS % (AUTO) 6.6 % (0-6); LYMPHOCYTES # (AUTO) 0.5 X10'3 (1.1-4.8); LYMPHOCYTES % (AUTO) 9.5 % (21-51); MEAN PLATELET VOLUME 9.7 FL (7.4-10.4); MONOCYTES % (AUTO) 5.2 % (2-12); NEUTROPHILS % (AUTO) 78.3 % (42-75)
[2024-09-21 01:52] LABS: INR 2.5 INR; PROTHROMBIN TIME 24.5 SECONDS (9.0-12.0)
[2024-09-21 01:56] LABS: ALANINE AMINOTRANSFERASE 45 U/L (12-78); ALKALINE PHOSPHATASE 39 IU/L (46-116); ANION GAP 17 (8-16); ASPARTATE AMINO TRANSFERASE 124 U/L (10-37); BILIRUBIN,TOTAL 4.6 MG/DL (0.1-1.0); BLOOD UREA NITROGEN 22 MG/DL (7-18); BUN/CREATININE RATIO 6.9 (10.0-20.0); CALCIUM 6.9 MG/DL (8.5-10.1); CHLORIDE 94 MMOL/L (99-107); CREATININE 3.21 MG/DL (0.40-0.90); GLUCOSE 116 MG/DL (70-104); LIPASE 63 U/L (16-77); SODIUM 135 MMOL/L (135-145); TOTAL CARBON DIOXIDE 24.3 MMOL/L (24-32); eCRCL 23 ML/MIN; eGFR 16 ML/MIN
[2024-09-21] MEDS ORDERED: acetaminophen 1,000mg/100ml IV 100 ML IV SCH (02:00)
[2024-09-21] MEDS: ringers solution, lacted 1,000 ML IV ONE (02:03)
[2024-09-21] MEDS: albumin (human) 25% 100 ML IV solution IV ONE (02:07)
[2024-09-21 02:11] LABS: ALBUMIN/GLOBULIN RATIO 0.6 (1.1-1.5); TOTAL PROTEIN 5.1 G/DL (6.4-8.2)
[2024-09-21 02:15] LABS: HEMATOCRIT 23.4 % (35.0-45.0); HEMOGLOBIN 7.1 g/dl (12.0-16.0); MEAN CORPUSCULAR HEMOGLOBIN 20.8 PG (27.0-31.0); MEAN CORPUSCULAR HGB CONC 30.3 g/dL (33.0-36.5); MEAN CORPUSCULAR VOLUME 68.7 FL (78-98); RED BLOOD COUNT 3.41 X10'6 (4.20-5.60); RED CELL DISTRIBUTION WIDTH 18.2 % (11.5-14.5)
[2024-09-21 02:16] LABS: MAGNESIUM 0.8 MG/DL (1.5-2.4)
[2024-09-21 02:17] LABS: PLATELET COUNT 27 X10'3 (140-440)
[2024-09-21] MEDS: NORepinephrine 8mg/ 250ml NS 250 ML IV ONE (02:17)
[2024-09-21 02:28] LABS: NUCLEATED RED BLOOD CELLS 1 /100WBC (0-0); PLATELET ESTIMATE DECREASED; TOTAL CELLS COUNTED 100
[2024-09-21] MEDS: vasopressin inj. 40 UNIT in normal saline 50ml IV soln 38 ML IV SCH (03:01)
[2024-09-21 03:14] LABS: ABG BASE EXCESS -6.9 mmol/L (-2.0-3.0); ABG HCO3 19.1 mmol/L (21.0-28.0); ABG OXYGEN SATURATION 98.9 % (94.0-98.0); ABG PH (T) 7.288 (7.350-7.450); ABG PO2 (T) 144.1 mmHg (83.0-108.0); FCOHb 0.6 % (0.5-1.5); FHHb 1.1 % (0.0-5.0); FMetHb 0.4 % (0.0-1.5); FO2Hb 97.9 % (94.0-98.0); MODE PRVC; PATIENT TEMPERATURE 37.5; PEEP 5 cm H2O; RESPIRATORY RATE 18 b/min; TIDAL VOLUME 400 mL; TOTAL HEMOGLOBIN 7.8 G/dl (12.0-16.0)
[2024-09-21] MEDS: hydrocortisone sod succ/PF 100mg/2ml inj. IV SCH (03:24)
[2024-09-21] MEDS: potassium Cl 20mEq/100mL bag 100 ML IV SCH (03:32)
[2024-09-21] MEDS: magnesium sulf-water 4G/100mL 100 ML IV ONE (03:48)
[2024-09-21] MEDS: NORepinephrine 8mg/ 250ml NS 250 ML IV SCH (03:55)
[2024-09-21 07:24] LABS: APTT 42 SECONDS (22-32); PROTHROMBIN TIME 20.1 SECONDS (9.0-12.0)
[2024-09-21 07:25] LABS: ALANINE AMINOTRANSFERASE 47 U/L (12-78); ALBUMIN 2.3 G/DL (3.4-5.0); ALKALINE PHOSPHATASE 33 IU/L (46-116); ANION GAP 17 (8-16); ASPARTATE AMINO TRANSFERASE 132 U/L (10-37); BILIRUBIN,TOTAL 5.8 MG/DL (0.1-1.0); BLOOD UREA NITROGEN 25 MG/DL (7-18); BUN/CREATININE RATIO 7.1 (10.0-20.0); CALCIUM 7.1 MG/DL (8.5-10.1); CHLORIDE 93 MMOL/L (99-107); CREATININE 3.51 MG/DL (0.40-0.90); GLUCOSE 117 MG/DL (70-104); LYMPHOCYTES # (AUTO) 0.4 X10'3 (1.1-4.8); LYMPHOCYTES % (AUTO) 4.6 % (21-51); POTASSIUM 3.5 MMOL/L (3.5-5.1); SODIUM 132 MMOL/L (135-145); TOTAL CARBON DIOXIDE 22.1 MMOL/L (24-32); eCRCL 21 ML/MIN; eGFR 14 ML/MIN
[2024-09-21 07:27] LABS: BASOPHILS % (AUTO) 0.2 % (0-1); EOSINOPHILS # (AUTO) 0.5 X10'3 (0-0.9); EOSINOPHILS % (AUTO) 5.4 % (0-6); MEAN PLATELET VOLUME 9.1 FL (7.4-10.4); MONOCYTES % (AUTO) 11.1 % (2-12); NEUTROPHILS # (AUTO) 7.1 X10'3 (1.8-7.7); NEUTROPHILS % (AUTO) 78.7 % (42-75); RED BLOOD COUNT 3.65 X10'6 (4.20-5.60); RED CELL DISTRIBUTION WIDTH 18.8 % (11.5-14.5)
[2024-09-21 07:41] LABS: ALBUMIN/GLOBULIN RATIO 0.7 (1.1-1.5); TOTAL PROTEIN 5.5 G/DL (6.4-8.2)
[2024-09-21] MEDS: pantoprazole 40 MG vial IV SCH (07:46)
[2024-09-21] MEDS: thiamine 100mg/ml 2ml inj. IV SCH (07:47)
[2024-09-21 07:50] LABS: HEMATOCRIT 25.1 % (35.0-45.0); HEMOGLOBIN 7.6 g/dl (12.0-16.0); MEAN CORPUSCULAR HEMOGLOBIN 20.9 PG (27.0-31.0); MEAN CORPUSCULAR HGB CONC 30.3 g/dL (33.0-36.5)
[2024-09-21 07:53] LABS: PLATELET COUNT 24 X10'3 (140-440)
[2024-09-21] MEDS: folic acid 1mg/0.2ml inj IV SCH (07:56)
[2024-09-21] MEDS ORDERED: multivitamins, therapeutics tablet PO SCH (08:00)
[2024-09-21] MEDS ORDERED: pantoprazole 40MG/NS 100ML BAG 100 ML IV SCH (08:00)
[2024-09-21] MEDS ORDERED: acetaminophen 1,000mg/100ml IV 100 ML IV ONE (08:25)
[2024-09-21 08:30] LABS: NUCLEATED RED BLOOD CELLS 3 /100WBC (0-0); PLATELET ESTIMATE DECREASED; TOTAL CELLS COUNTED 100
[2024-09-21 08:31] LABS: ANISOCYTOSIS 2+; LARGE PLATELETS FEW; MICROCYTOSIS 1+
[2024-09-21 08:32] LABS: HYPOCHROMASIA 1+; MAGNESIUM 1.9 MG/DL (1.5-2.4); POLYCHROMASIA 1+
[2024-09-21] MEDS: acetaminophen 1,000mg/100ml IV 100 ML IV ONE (09:01)
[2024-09-21] MEDS: NORMAL SALINE IV ONE (12:26)
[2024-09-21] MEDS: TOBRAMYCIN IV ONE (12:26)
[2024-09-21] MEDS: normal saline 1000ml 1,000 ML IV ONE ×3 (12:27→15:27)
[2024-09-21] MEDS: dextrose 5%-normal saline 1,000 ML IV SCH (12:53)
[2024-09-21] MEDS: acetaminophen 1,000mg/100ml IV 100 ML IV SCH (14:00)
[2024-09-21 14:48] LABS: HEMOGLOBIN 7.1 g/dl (12.0-16.0); LYMPHOCYTES # (AUTO) 0.4 X10'3 (1.1-4.8)
[2024-09-21 14:49] LABS: BASOPHILS % (AUTO) 0.4 % (0-1); EOSINOPHILS # (AUTO) 0.4 X10'3 (0-0.9); EOSINOPHILS % (AUTO) 4.2 % (0-6); LYMPHOCYTES % (AUTO) 4.6 % (21-51); MEAN PLATELET VOLUME 8.9 FL (7.4-10.4); MONOCYTES % (AUTO) 10.5 % (2-12); NEUTROPHILS # (AUTO) 7.6 X10'3 (1.8-7.7); NEUTROPHILS % (AUTO) 80.3 % (42-75)
[2024-09-21 14:54] LABS: ALANINE AMINOTRANSFERASE 55 U/L (12-78); ALBUMIN 2.2 G/DL (3.4-5.0); ALKALINE PHOSPHATASE 28 IU/L (46-116); ANION GAP 18 (8-16); ASPARTATE AMINO TRANSFERASE 149 U/L (10-37); BILIRUBIN,TOTAL 6.3 MG/DL (0.1-1.0); BLOOD UREA NITROGEN 27 MG/DL (7-18); BUN/CREATININE RATIO 7.5 (10.0-20.0); CALCIUM 6.6 MG/DL (8.5-10.1); CHLORIDE 94 MMOL/L (99-107); CREATININE 3.58 MG/DL (0.40-0.90); GLUCOSE 111 MG/DL (70-104); POTASSIUM 4.2 MMOL/L (3.5-5.1); SODIUM 133 MMOL/L (135-145); TOTAL CARBON DIOXIDE 21.5 MMOL/L (24-32); eCRCL 20 ML/MIN; eGFR 14 ML/MIN
[2024-09-21 14:59] LABS: ALBUMIN/GLOBULIN RATIO 0.8 (1.1-1.5); TOTAL PROTEIN 5.1 G/DL (6.4-8.2)
[2024-09-21 15:18] LABS: PLATELET COUNT 24 X10'3 (140-440); RED BLOOD COUNT 3.34 X10'6 (4.20-5.60); WHITE BLOOD COUNT 8.5 X10'3 (4.5-11.0)
[2024-09-21 15:19] LABS: MEAN CORPUSCULAR HGB CONC 30.5 g/dL (33.0-36.5); MEAN CORPUSCULAR VOLUME 68.9 FL (78-98); RED CELL DISTRIBUTION WIDTH 18.5 % (11.5-14.5)
[2024-09-21] MEDS ORDERED: VANCOMYCIN 750MG IV in NS 250 ML IV SCH (18:00)
[2024-09-21] MEDS: mineral oil/petrolatum ophthal oint EACHEYE SCH (22:05)
[2024-09-22] VITALS (31 sets, daily range): BP systolic 98–130; BP diastolic 55–74; PULSE 109–142; RESP 17–24; TEMP 98.9; O2SAT 91–96
[2024-09-22 03:48] LABS: HEMATOCRIT 22.7 % (35.0-45.0); LYMPHOCYTES # (AUTO) 0.5 X10'3 (1.1-4.8); NEUTROPHILS # (AUTO) 7.1 X10'3 (1.8-7.7)
[2024-09-22 03:49] LABS: BASOPHILS % (AUTO) 0.3 % (0-1); EOSINOPHILS # (AUTO) 0.2 X10'3 (0-0.9); EOSINOPHILS % (AUTO) 2.8 % (0-6); LYMPHOCYTES % (AUTO) 5.8 % (21-51); MEAN CORPUSCULAR HEMOGLOBIN 20.6 PG (27.0-31.0); MEAN CORPUSCULAR HGB CONC 29.3 g/dL (33.0-36.5); MEAN CORPUSCULAR VOLUME 70.5 FL (78-98); MEAN PLATELET VOLUME 9.2 FL (7.4-10.4); MONOCYTES # (AUTO) 0.9 X10'3 (0-0.9); MONOCYTES % (AUTO) 10.5 % (2-12); NEUTROPHILS % (AUTO) 80.6 % (42-75); RED BLOOD COUNT 3.22 X10'6 (4.20-5.60); RED CELL DISTRIBUTION WIDTH 18.5 % (11.5-14.5); WHITE BLOOD COUNT 8.8 X10'3 (4.5-11.0)
[2024-09-22 03:53] LABS: HEMOGLOBIN 6.6 g/dl (12.0-16.0); PLATELET COUNT 19 X10'3 (140-440)
[2024-09-22 03:58] LABS: INR 1.9 INR
[2024-09-22 04:08] LABS: ALANINE AMINOTRANSFERASE 60 U/L (12-78); ALBUMIN 1.9 G/DL (3.4-5.0); ALKALINE PHOSPHATASE 41 IU/L (46-116); ANION GAP 9 (8-16); ASPARTATE AMINO TRANSFERASE 161 U/L (10-37); BILIRUBIN,TOTAL 7.2 MG/DL (0.1-1.0); BLOOD UREA NITROGEN 33 MG/DL (7-18); BUN/CREATININE RATIO 8.5 (10.0-20.0); CALCIUM 6.4 MG/DL (8.5-10.1); CHLORIDE 99 MMOL/L (99-107); CREATININE 3.89 MG/DL (0.40-0.90); GLUCOSE 124 MG/DL (70-104); LIPASE 79 U/L (16-77); MAGNESIUM 1.2 MG/DL (1.5-2.4); POTASSIUM 3.8 MMOL/L (3.5-5.1); SODIUM 134 MMOL/L (135-145); TOTAL CARBON DIOXIDE 26.1 MMOL/L (24-32); eCRCL 19 ML/MIN; eGFR 13 ML/MIN
[2024-09-22 04:10] LABS: ALBUMIN/GLOBULIN RATIO 0.6 (1.1-1.5); TOTAL PROTEIN 4.9 G/DL (6.4-8.2)
[2024-09-22 04:25] LABS: PHOSPHORUS 0.8 MG/DL (2.3-4.5); PLATELET ESTIMATE DECREASED; TOTAL CELLS COUNTED 100
[2024-09-22] MEDS: magnesium sulf-water 2g/50mL 50 ML IV PRN (05:01)
[2024-09-22 05:03] LABS: ABG BASE EXCESS -7.6 mmol/L (-2.0-3.0); ABG HCO3 18.8 mmol/L (21.0-28.0); ABG OXYGEN SATURATION 96.4 % (94.0-98.0); ABG PCO2 (T) 43.6 mmHg (32.0-45.0); ABG PH (T) 7.256 (7.350-7.450); ABG PO2 (T) 98.2 mmHg (83.0-108.0); FCOHb 1.8 % (0.5-1.5); FHHb 3.5 % (0.0-5.0); FMetHb 0.2 % (0.0-1.5); FO2Hb 94.5 % (94.0-98.0); MODE ac/prvc; PATIENT TEMPERATURE 37.8; PEEP 5 cm H2O; RESPIRATORY RATE 18 b/min; TIDAL VOLUME 400 mL; TOTAL HEMOGLOBIN 7.4 G/dl (12.0-16.0)
[2024-09-22] MEDS ORDERED: acetaminophen 1,000mg/100ml IV 100 ML IV PRN (07:35)
[2024-09-22] MEDS ORDERED: POTASSIUM CHLORIDE 20 MEQ/15 ML oral solution OGT PRN ×2 (07:55→07:56)
[2024-09-22] MEDS ORDERED: acetaminophen 325mg/10.15ml oral unit dose solution OGT PRN ×2 (07:58)
[2024-09-22] MEDS ORDERED: DEXTROSE 15 GM of carb/4 tabs (each vial/BOTTLE has 4 tablets) OGT PRN ×2 (07:59→12:20)
[2024-09-22] MEDS ORDERED: docusate sodium 100mg/10ml UD cup PO SCH (08:00)
[2024-09-22] MEDS: ringers solution, lacted 1,000 ML IV ONE ×2 (08:04)
[2024-09-22] MEDS: sodium phosphate inj. 30 MMOL in dextrose 5%-water 250 ML IV ONE (08:04)
[2024-09-22] MEDS ORDERED: sodium phosphate inj. 30 MMOL in dextrose 5%-water 250 ML IV PRN (08:05)
[2024-09-22] MEDS ORDERED: sodium phosphate inj. 15 MMOL in dextrose 5%-water 250 ML IV PRN (08:05)
[2024-09-22] MEDS ORDERED: magnesium hydroxide 30ml (MOM) UD suspension OGT PRN (08:09)
[2024-09-22] MEDS ORDERED: mag hydrox/Alum hydrox/simeth 30ml oral suspension OGT PRN (08:09)
[2024-09-22] MEDS: magnesium sulf-water 2g/50mL 50 ML IV ONE (08:32)
[2024-09-22] MEDS: docusate sodium 100mg/10ml UD cup OGT SCH (09:22)
[2024-09-22] MEDS: furosemide 10 MG/1 ML 10ml inj IV ONE (10:50)
[2024-09-22] MEDS ORDERED: UNABLE TO OBTAIN (11:15)
[2024-09-22] MEDS ORDERED: DEXTROSE 15 GM of carb/4 tabs (each vial/BOTTLE has 4 tablets) PO PRN ×2 (13:55)
[2024-09-22] MEDS ORDERED: glucagon, human recombinant 1mg kit SUBCUT PRN (13:55)
[2024-09-22] MEDS ORDERED: dextrose 50%-water 50ml dispensing syringe IV PRN ×2 (13:55)
[2024-09-22] MEDS: bumetanide inj. 10 MG in normal saline 100ml IV soln 60 ML IV SCH (14:40)
[2024-09-22] MEDS: insulin regular, human U-100 10ml vial - multi-dose SQ SCH (14:41)
[2024-09-22 15:29] LABS: LYMPHOCYTES # (AUTO) 0.3 X10'3 (1.1-4.8); MEAN PLATELET VOLUME 9.7 FL (7.4-10.4); NEUTROPHILS # (AUTO) 5.5 X10'3 (1.8-7.7); WHITE BLOOD COUNT 6.6 X10'3 (4.5-11.0)
[2024-09-22 15:31] LABS: BASOPHILS % (AUTO) 0.2 % (0-1); EOSINOPHILS # (AUTO) 0.1 X10'3 (0-0.9); EOSINOPHILS % (AUTO) 1.3 % (0-6); LYMPHOCYTES % (AUTO) 5.1 % (21-51); MONOCYTES # (AUTO) 0.7 X10'3 (0-0.9); MONOCYTES % (AUTO) 10.9 % (2-12); NEUTROPHILS % (AUTO) 82.5 % (42-75)
[2024-09-22 15:54] LABS: PLATELET COUNT 14 X10'3 (140-440)
[2024-09-22 15:55] LABS: HEMATOCRIT 22.4 % (35.0-45.0); HEMOGLOBIN 7.3 g/dl (12.0-16.0); MEAN CORPUSCULAR HEMOGLOBIN 22.5 PG (27.0-31.0); MEAN CORPUSCULAR HGB CONC 32.8 g/dL (33.0-36.5); MEAN CORPUSCULAR VOLUME 68.6 FL (78-98); RED BLOOD COUNT 3.26 X10'6 (4.20-5.60); RED CELL DISTRIBUTION WIDTH 19.8 % (11.5-14.5)
[2024-09-22 16:11] LABS: ALANINE AMINOTRANSFERASE 59 U/L (12-78); ALBUMIN 1.8 G/DL (3.4-5.0); ALKALINE PHOSPHATASE 62 IU/L (46-116); ANION GAP 8 (8-16); ASPARTATE AMINO TRANSFERASE 157 U/L (10-37); BILIRUBIN,TOTAL 7.8 MG/DL (0.1-1.0); BLOOD UREA NITROGEN 44 MG/DL (7-18); BUN/CREATININE RATIO 11.1 (10.0-20.0); CALCIUM 6.4 MG/DL (8.5-10.1); CHLORIDE 101 MMOL/L (99-107); CREATININE 3.95 MG/DL (0.40-0.90); GLUCOSE 127 MG/DL (70-104); LACTATE DEHYDROGENASE 473 U/L (81-234); MAGNESIUM 1.8 MG/DL (1.5-2.4); POTASSIUM 3.5 MMOL/L (3.5-5.1); SODIUM 134 MMOL/L (135-145); TOTAL CARBON DIOXIDE 24.8 MMOL/L (24-32); eCRCL 18 ML/MIN; eGFR 12 ML/MIN
[2024-09-22 16:24] LABS: ALBUMIN/GLOBULIN RATIO 0.6 (1.1-1.5); TOTAL PROTEIN 4.8 G/DL (6.4-8.2)
[2024-09-22] MEDS ORDERED: sodium phosphate inj. 30 MMOL in normal saline 250ml IV soln 250 ML IV PRN (16:48)
[2024-09-22] MEDS: MVI, adult No.4 with vit. K 10 ML in dextrose 5% water 500ml 500 ML IV SCH (16:51)
[2024-09-22] MEDS: sodium phosphate inj. 15 MMOL in normal saline 250ml IV soln 250 ML IV PRN (17:16)
[2024-09-22] MEDS ORDERED: vancomycin/NS 1 GM ADD-VANTAGE 250 ML IV SCH (19:00)
[2024-09-22] MEDS: methylPREDNISolone sod succ 125mg/2ml vial IV SCH (20:41)
[2024-09-22] MEDS: ringers solution, lactated 500ml IV solution IV ONE (22:59)
[2024-09-22] MEDS: albumin (human) 25% 100ml IV 100 ML IV ONE (23:00)
[2024-09-23] VITALS (44 sets, daily range): BP systolic 90–124; BP diastolic 59–77; PULSE 101–134; RESP 17–21; TEMP 98.9–99.5; O2SAT 91–100
[2024-09-23 02:23] LABS: EOSINOPHILS # (AUTO) 0.1 X10'3 (0-0.9); HEMATOCRIT 23.5 % (35.0-45.0); MONOCYTES # (AUTO) 0.6 X10'3 (0-0.9)
[2024-09-23 02:29] LABS: BASOPHILS % (AUTO) 0 % (0-1); EOSINOPHILS % (AUTO) 1.3 % (0-6); LYMPHOCYTES # (AUTO) 0.3 X10'3 (1.1-4.8); LYMPHOCYTES % (AUTO) 4.8 % (21-51); MEAN CORPUSCULAR HEMOGLOBIN 21.2 PG (27.0-31.0); MEAN CORPUSCULAR HGB CONC 29.7 g/dL (33.0-36.5); MEAN CORPUSCULAR VOLUME 71.3 FL (78-98); MEAN PLATELET VOLUME 10.4 FL (7.4-10.4); MONOCYTES % (AUTO) 10.1 % (2-12); NEUTROPHILS # (AUTO) 4.9 X10'3 (1.8-7.7); NEUTROPHILS % (AUTO) 83.8 % (42-75); RED CELL DISTRIBUTION WIDTH 19.9 % (11.5-14.5); WHITE BLOOD COUNT 5.9 X10'3 (4.5-11.0)
[2024-09-23 02:37] LABS: INR 1.4 INR; PROTHROMBIN TIME 14.6 SECONDS (9.0-12.0)
[2024-09-23 02:40] LABS: ALANINE AMINOTRANSFERASE 53 U/L (12-78); ALBUMIN 2.1 G/DL (3.4-5.0); ALBUMIN/GLOBULIN RATIO 0.7 (1.1-1.5); ALKALINE PHOSPHATASE 67 IU/L (46-116); ANION GAP 13 (8-16); ASPARTATE AMINO TRANSFERASE 155 U/L (10-37); BILIRUBIN,TOTAL 9.4 MG/DL (0.1-1.0); BLOOD UREA NITROGEN 51 MG/DL (7-18); BUN/CREATININE RATIO 11.8 (10.0-20.0); CALCIUM 6.6 MG/DL (8.5-10.1); CHLORIDE 99 MMOL/L (99-107); CREATININE 4.31 MG/DL (0.40-0.90); GLUCOSE 116 MG/DL (70-104); LACTATE DEHYDROGENASE 459 U/L (81-234); LIPASE 178 U/L (16-77); MAGNESIUM 1.7 MG/DL (1.5-2.4); PHOSPHORUS 2.1 MG/DL (2.3-4.5); PLATELET COUNT 11 X10'3 (140-440); POTASSIUM 3.5 MMOL/L (3.5-5.1); SODIUM 134 MMOL/L (135-145); TOTAL PROTEIN 5.1 G/DL (6.4-8.2); eCRCL 17 ML/MIN; eGFR 11 ML/MIN
[2024-09-23 03:22] LABS: NUCLEATED RED BLOOD CELLS 3 /100WBC (0-0); TOTAL CELLS COUNTED 100
[2024-09-23 03:45] LABS: ABG BASE EXCESS -8.3 mmol/L (-2.0-3.0); ABG HCO3 17.5 mmol/L (21.0-28.0); ABG OXYGEN SATURATION 95.5 % (94.0-98.0); ABG PCO2 (T) 36.5 mmHg (32.0-45.0); ABG PH (T) 7.296 (7.350-7.450); ABG PO2 (T) 74.7 mmHg (83.0-108.0); FCOHb 2.5 % (0.5-1.5); FHHb 4.4 % (0.0-5.0); FMetHb 0.3 % (0.0-1.5); FO2Hb 92.8 % (94.0-98.0); MODE ac/prvc; PATIENT TEMPERATURE 36.4; PEEP 5 cm H2O; RESPIRATORY RATE 18 b/min; TIDAL VOLUME 400 mL; TOTAL HEMOGLOBIN 7.7 G/dl (12.0-16.0)
[2024-09-23] MEDS: thiamine 100mg tablet OGT SCH (07:04)
[2024-09-23] MEDS ORDERED: Duosol 4K/3 Ca (w/calcium) 5,000 ML HE SCH (10:15)
[2024-09-23] MEDS ORDERED: sodium phosphate inj. 30 MMOL in dextrose 5%-water 250 ML IV PRN (10:15)
[2024-09-23] MEDS ORDERED: potassium Cl 40MEQ/270ML bag 270 ML IV PRN (10:15)
[2024-09-23] MEDS: Duosol 4K/3 Ca (w/calcium) 5,000 ML HE SCH (13:54)
[2024-09-23 15:31] LABS: HEMATOCRIT 24.9 % (35.0-45.0); HEMOGLOBIN 7.7 g/dl (12.0-16.0); MEAN CORPUSCULAR HEMOGLOBIN 22.2 PG (27.0-31.0); MEAN CORPUSCULAR HGB CONC 30.7 g/dL (33.0-36.5); MEAN CORPUSCULAR VOLUME 72.1 FL (78-98); RED BLOOD COUNT 3.45 X10'6 (4.20-5.60); WHITE BLOOD COUNT 9.2 X10'3 (4.5-11.0)
[2024-09-23 15:46] LABS: PLATELET COUNT 40 X10'3 (140-440)
[2024-09-23 15:53] LABS: ALBUMIN 2.4 G/DL (3.4-5.0); ANION GAP 13 (8-16); BLOOD UREA NITROGEN 56 MG/DL (7-18); BUN/CREATININE RATIO 13.3 (10.0-20.0); CALCIUM CVVH 6.9 MG/DL (8.5-10.1); CHLORIDE 100 MMOL/L (99-107); GLUCOSE 157 MG/DL (70-104); MAGNESIUM 1.8 MG/DL (1.5-2.4); POTASSIUM 3.5 MMOL/L (3.5-5.1); SODIUM 136 MMOL/L (135-145); TOTAL CARBON DIOXIDE 22.7 MMOL/L (24-32); eGFR 11 ML/MIN
[2024-09-23 15:55] LABS: PHOSPHORUS 2.2 MG/DL (2.3-4.5)
[2024-09-23 16:51] LABS: BASOPHILS % (AUTO) 0.1 % (0-1); EOSINOPHILS % (AUTO) 0.1 % (0-6)
[2024-09-23 16:52] LABS: HEMATOCRIT 25.8 % (35.0-45.0); HEMOGLOBIN 7.8 g/dl (12.0-16.0); LYMPHOCYTES # (AUTO) 0.8 X10'3 (1.1-4.8); LYMPHOCYTES % (AUTO) 8.6 % (21-51); MEAN CORPUSCULAR HEMOGLOBIN 21.8 PG (27.0-31.0); MEAN CORPUSCULAR HGB CONC 30.3 g/dL (33.0-36.5); MEAN PLATELET VOLUME 8.6 FL (7.4-10.4); MONOCYTES % (AUTO) 10.6 % (2-12); NEUTROPHILS # (AUTO) 7.3 X10'3 (1.8-7.7); NEUTROPHILS % (AUTO) 80.6 % (42-75); RED BLOOD COUNT 3.58 X10'6 (4.20-5.60); RED CELL DISTRIBUTION WIDTH 20.7 % (11.5-14.5)
[2024-09-23 16:58] LABS: PLATELET COUNT 32 X10'3 (140-440)
[2024-09-23 17:03] LABS: ALBUMIN 2.3 G/DL (3.4-5.0); ANION GAP 11 (8-16); BLOOD UREA NITROGEN 55 MG/DL (7-18); BUN/CREATININE RATIO 13.8 (10.0-20.0); CHLORIDE 100 MMOL/L (99-107); GLUCOSE 160 MG/DL (70-104); MAGNESIUM 1.8 MG/DL (1.5-2.4); POTASSIUM 3.4 MMOL/L (3.5-5.1); SODIUM 135 MMOL/L (135-145); TOTAL CARBON DIOXIDE 23.8 MMOL/L (24-32); eGFR 12 ML/MIN
[2024-09-23 17:04] LABS: ANISOCYTOSIS 3+; MICROCYTOSIS 1+; NUCLEATED RED BLOOD CELLS 2 /100WBC (0-0); PLATELET ESTIMATE DECREASED; TOTAL CELLS COUNTED 100
[2024-09-23 17:05] LABS: HYPOCHROMASIA 1+; POLYCHROMASIA FEW
[2024-09-23 17:07] LABS: PHOSPHORUS 2.1 MG/DL (2.3-4.5)
[2024-09-23 17:17] LABS: HEMOGLOBIN 7.7 g/dl (12.0-16.0); MEAN CORPUSCULAR HGB CONC 30.8 g/dL (33.0-36.5)
[2024-09-23 17:19] LABS: BASOPHILS % (AUTO) 0 % (0-1); EOSINOPHILS % (AUTO) 0 % (0-6); HEMATOCRIT 24.9 % (35.0-45.0); LYMPHOCYTES # (AUTO) 0.8 X10'3 (1.1-4.8); LYMPHOCYTES % (AUTO) 9.2 % (21-51); MEAN CORPUSCULAR HEMOGLOBIN 22.2 PG (27.0-31.0); MEAN CORPUSCULAR VOLUME 71.9 FL (78-98); MEAN PLATELET VOLUME 8.9 FL (7.4-10.4); MONOCYTES % (AUTO) 11.2 % (2-12); NEUTROPHILS # (AUTO) 6.8 X10'3 (1.8-7.7); NEUTROPHILS % (AUTO) 79.6 % (42-75); RED BLOOD COUNT 3.46 X10'6 (4.20-5.60); RED CELL DISTRIBUTION WIDTH 21.3 % (11.5-14.5); WHITE BLOOD COUNT 8.6 X10'3 (4.5-11.0)
[2024-09-23 17:25] LABS: PLATELET COUNT 24 X10'3 (140-440)
[2024-09-23 17:43] LABS: ALBUMIN 2.3 G/DL (3.4-5.0); ANION GAP 10 (8-16); BLOOD UREA NITROGEN 54 MG/DL (7-18); CALCIUM CVVH 7.1 MG/DL (8.5-10.1); CHLORIDE 101 MMOL/L (99-107); CREATININE 3.85 MG/DL (0.40-0.90); GLUCOSE 167 MG/DL (70-104); MAGNESIUM 1.8 MG/DL (1.5-2.4); POTASSIUM 3.4 MMOL/L (3.5-5.1); SODIUM 136 MMOL/L (135-145); eGFR 13 ML/MIN
[2024-09-23 17:46] LABS: PHOSPHORUS 2.1 MG/DL (2.3-4.5)
[2024-09-23 18:54] LABS: HEMOGLOBIN 7.6 g/dl (12.0-16.0); LYMPHOCYTES # (AUTO) 0.4 X10'3 (1.1-4.8); MONOCYTES # (AUTO) 0.8 X10'3 (0-0.9); RED CELL DISTRIBUTION WIDTH 20.8 % (11.5-14.5); WHITE BLOOD COUNT 8.5 X10'3 (4.5-11.0)
[2024-09-23 18:56] LABS: BASOPHILS % (AUTO) 0.2 % (0-1); EOSINOPHILS % (AUTO) 0.4 % (0-6); HEMATOCRIT 24.9 % (35.0-45.0); LYMPHOCYTES % (AUTO) 4.3 % (21-51); MEAN CORPUSCULAR HEMOGLOBIN 21.9 PG (27.0-31.0); MEAN CORPUSCULAR HGB CONC 30.5 g/dL (33.0-36.5); MEAN CORPUSCULAR VOLUME 72.1 FL (78-98); MEAN PLATELET VOLUME 9.8 FL (7.4-10.4); NEUTROPHILS # (AUTO) 7.3 X10'3 (1.8-7.7); NEUTROPHILS % (AUTO) 86.1 % (42-75); RED BLOOD COUNT 3.46 X10'6 (4.20-5.60)
[2024-09-23 19:00] LABS: PLATELET COUNT 23 X10'3 (140-440)
[2024-09-23 19:13] LABS: ALBUMIN 2.3 G/DL (3.4-5.0); ANION GAP 12 (8-16); BLOOD UREA NITROGEN 52 MG/DL (7-18); BUN/CREATININE RATIO 13.9 (10.0-20.0); CALCIUM CVVH 7.1 MG/DL (8.5-10.1); CHLORIDE 101 MMOL/L (99-107); CREATININE 3.74 MG/DL (0.40-0.90); GLUCOSE 164 MG/DL (70-104); MAGNESIUM 1.8 MG/DL (1.5-2.4); POTASSIUM 3.4 MMOL/L (3.5-5.1); SODIUM 136 MMOL/L (135-145); TOTAL CARBON DIOXIDE 22.7 MMOL/L (24-32); eGFR 13 ML/MIN
[2024-09-23] MEDS: potassium Cl 40MEQ/270ML bag 270 ML IV PRN (19:33)
[2024-09-23] MEDS: sodium phosphate inj. 30 MMOL in normal saline 250ml IV soln 250 ML IV PRN (19:35)
[2024-09-23] MEDS: calcium chloride inj. 1,000 MG in normal saline 100ml IV soln 100 ML IV PRN (19:39)
[2024-09-24] VITALS (35 sets, daily range): BP systolic 105–152; BP diastolic 55–91; PULSE 80–123; RESP 17–23; TEMP 97.5; O2SAT 100
[2024-09-24 00:53] LABS: HEMOGLOBIN 7.7 g/dl (12.0-16.0); MEAN CORPUSCULAR HEMOGLOBIN 21.9 PG (27.0-31.0); MEAN PLATELET VOLUME 10.1 FL (7.4-10.4)
[2024-09-24 00:55] LABS: HEMATOCRIT 25.2 % (35.0-45.0); MEAN CORPUSCULAR HGB CONC 30.5 g/dL (33.0-36.5); RED BLOOD COUNT 3.49 X10'6 (4.20-5.60); RED CELL DISTRIBUTION WIDTH 20.7 % (11.5-14.5); WHITE BLOOD COUNT 7.7 X10'3 (4.5-11.0)
[2024-09-24 01:02] LABS: PLATELET COUNT 17 X10'3 (140-440)
[2024-09-24 01:12] LABS: NUCLEATED RED BLOOD CELLS 1 /100WBC (0-0)
[2024-09-24 01:13] LABS: TOTAL CELLS COUNTED 100
[2024-09-24 01:25] LABS: ALANINE AMINOTRANSFERASE 54 U/L (12-78); ALBUMIN 2.2 G/DL (3.4-5.0); ALKALINE PHOSPHATASE 98 IU/L (46-116); ASPARTATE AMINO TRANSFERASE 116 U/L (10-37); BILIRUBIN,TOTAL 9.8 MG/DL (0.1-1.0); BLOOD UREA NITROGEN 47 MG/DL (7-18); BUN/CREATININE RATIO 14.9 (10.0-20.0); CALCIUM 7.6 MG/DL (8.5-10.1); CALCIUM CVVH 7.6 MG/DL (8.5-10.1); CREATININE 3.16 MG/DL (0.40-0.90); GLUCOSE 166 MG/DL (70-104); LACTATE DEHYDROGENASE 362 U/L (81-234); LIPASE 123 U/L (16-77); MAGNESIUM 1.7 MG/DL (1.5-2.4); POTASSIUM 4.1 MMOL/L (3.5-5.1); PREALBUMIN 9.7 MG/DL (19-36); SODIUM 138 MMOL/L (135-145); TOTAL CARBON DIOXIDE 25.1 MMOL/L (24-32); eCRCL 23 ML/MIN; eGFR 16 ML/MIN
[2024-09-24 01:29] LABS: ALBUMIN/GLOBULIN RATIO 0.6 (1.1-1.5); ANION GAP 9 (8-16); CHLORIDE 104 MMOL/L (99-107); PHOSPHORUS 3.3 MG/DL (2.3-4.5); TOTAL PROTEIN 5.9 G/DL (6.4-8.2)
[2024-09-24] MEDS: magnesium sulf-water 4G/100mL 100 ML IV PRN (01:29)
[2024-09-24 03:15] LABS: ABG BASE EXCESS -6.5 mmol/L (-2.0-3.0); ABG HCO3 18.7 mmol/L (21.0-28.0); ABG OXYGEN SATURATION 98.7 % (94.0-98.0); ABG PCO2 (T) 35.3 mmHg (32.0-45.0); ABG PH (T) 7.341 (7.350-7.450); ABG PO2 (T) 107.2 mmHg (83.0-108.0); FHHb 1.3 % (0.0-5.0); FMetHb 0.3 % (0.0-1.5); FO2Hb 96.4 % (94.0-98.0); MODE PRVC; PATIENT TEMPERATURE 36.4; PEEP 5 cm H2O; RESPIRATORY RATE 18 b/min; TIDAL VOLUME 400 mL; TOTAL HEMOGLOBIN 8.3 G/dl (12.0-16.0)
[2024-09-24 05:56] LABS: EOSINOPHILS % (AUTO) 0 % (0-6); HEMOGLOBIN 7.7 g/dl (12.0-16.0)
[2024-09-24 05:59] LABS: MEAN CORPUSCULAR HEMOGLOBIN 21.9 PG (27.0-31.0); MEAN CORPUSCULAR HGB CONC 30.7 g/dL (33.0-36.5); MEAN CORPUSCULAR VOLUME 71.3 FL (78-98); WHITE BLOOD COUNT 8.2 X10'3 (4.5-11.0)
[2024-09-24 06:00] LABS: BASOPHILS % (AUTO) 0.1 % (0-1); LYMPHOCYTES # (AUTO) 0.3 X10'3 (1.1-4.8); LYMPHOCYTES % (AUTO) 3.3 % (21-51); MEAN PLATELET VOLUME 9.9 FL (7.4-10.4); MONOCYTES # (AUTO) 1.2 X10'3 (0-0.9); MONOCYTES % (AUTO) 14.5 % (2-12); NEUTROPHILS # (AUTO) 6.7 X10'3 (1.8-7.7); NEUTROPHILS % (AUTO) 82.1 % (42-75)
[2024-09-24 06:13] LABS: PLATELET COUNT 15 X10'3 (140-440)
[2024-09-24 06:32] LABS: ALBUMIN 2.2 G/DL (3.4-5.0); ANION GAP 10 (8-16); BLOOD UREA NITROGEN 46 MG/DL (7-18); BUN/CREATININE RATIO 16.7 (10.0-20.0); CALCIUM CVVH 7.9 MG/DL (8.5-10.1); CHLORIDE 104 MMOL/L (99-107); CREATININE 2.75 MG/DL (0.40-0.90); GLUCOSE 173 MG/DL (70-104); MAGNESIUM 2.6 MG/DL (1.5-2.4); POTASSIUM 3.4 MMOL/L (3.5-5.1); SODIUM 137 MMOL/L (135-145); TOTAL CARBON DIOXIDE 22.9 MMOL/L (24-32); eGFR 19 ML/MIN
[2024-09-24 06:33] LABS: PHOSPHORUS 2.4 MG/DL (2.3-4.5)
[2024-09-24 08:03] LABS: INR 1.3 INR; PROTHROMBIN TIME 13.3 SECONDS (9.0-12.0)
[2024-09-24] MEDS: MULTIVIT-MIN/FERROUS GLUCONATE 9 MG/15 ML LIQUID OGT SCH (11:22)
[2024-09-24 11:46] LABS: HBSAG SCREEN Negative (Negative); HEP B SURF AB Reactive (.)
[2024-09-24 12:30] LABS: BASOPHILS % (AUTO) 0.3 % (0-1); EOSINOPHILS % (AUTO) 0 % (0-6); HEMATOCRIT 25.2 % (35.0-45.0); HEMOGLOBIN 7.8 g/dl (12.0-16.0); MONOCYTES # (AUTO) 1.1 X10'3 (0-0.9)
[2024-09-24 12:32] LABS: LYMPHOCYTES # (AUTO) 0.3 X10'3 (1.1-4.8); LYMPHOCYTES % (AUTO) 2.9 % (21-51); MEAN CORPUSCULAR HEMOGLOBIN 22.2 PG (27.0-31.0); MEAN CORPUSCULAR HGB CONC 31.1 g/dL (33.0-36.5); MEAN CORPUSCULAR VOLUME 71.4 FL (78-98); MEAN PLATELET VOLUME 10.5 FL (7.4-10.4); MONOCYTES % (AUTO) 12.5 % (2-12); NEUTROPHILS # (AUTO) 7.6 X10'3 (1.8-7.7); NEUTROPHILS % (AUTO) 84.3 % (42-75); RED BLOOD COUNT 3.54 X10'6 (4.20-5.60); RED CELL DISTRIBUTION WIDTH 21.2 % (11.5-14.5)
[2024-09-24 12:43] LABS: PLATELET COUNT 13 X10'3 (140-440)
[2024-09-24 12:46] LABS: ALBUMIN 2.1 G/DL (3.4-5.0); ANION GAP 9 (8-16); BLOOD UREA NITROGEN 47 MG/DL (7-18); BUN/CREATININE RATIO 19.9 (10.0-20.0); CHLORIDE 104 MMOL/L (99-107); CREATININE 2.36 MG/DL (0.40-0.90); GLUCOSE 183 MG/DL (70-104); MAGNESIUM 2.3 MG/DL (1.5-2.4); POTASSIUM 3.8 MMOL/L (3.5-5.1); SODIUM 139 MMOL/L (135-145); TOTAL CARBON DIOXIDE 26.3 MMOL/L (24-32); eGFR 22 ML/MIN
[2024-09-24 12:48] LABS: PHOSPHORUS 1.9 MG/DL (2.3-4.5)
[2024-09-24 18:00] LABS: BASOPHILS % (AUTO) 0.1 % (0-1); HEMOGLOBIN 7.9 g/dl (12.0-16.0); LYMPHOCYTES # (AUTO) 0.3 X10'3 (1.1-4.8)
[2024-09-24 18:01] LABS: EOSINOPHILS % (AUTO) 0.1 % (0-6); HEMATOCRIT 25.4 % (35.0-45.0); LYMPHOCYTES % (AUTO) 3.4 % (21-51); MEAN CORPUSCULAR HEMOGLOBIN 21.9 PG (27.0-31.0); MEAN CORPUSCULAR VOLUME 70.8 FL (78-98); MEAN PLATELET VOLUME 10.4 FL (7.4-10.4); MONOCYTES % (AUTO) 11.5 % (2-12); NEUTROPHILS # (AUTO) 7.7 X10'3 (1.8-7.7); NEUTROPHILS % (AUTO) 84.9 % (42-75); RED BLOOD COUNT 3.59 X10'6 (4.20-5.60); RED CELL DISTRIBUTION WIDTH 21.4 % (11.5-14.5)
[2024-09-24 18:04] LABS: ALBUMIN 2.1 G/DL (3.4-5.0); ANION GAP 10 (8-16); BLOOD UREA NITROGEN 47 MG/DL (7-18); BUN/CREATININE RATIO 21.5 (10.0-20.0); CALCIUM CVVH 7.9 MG/DL (8.5-10.1); CHLORIDE 105 MMOL/L (99-107); CREATININE 2.19 MG/DL (0.40-0.90); GLUCOSE 204 MG/DL (70-104); MAGNESIUM 2.1 MG/DL (1.5-2.4); POTASSIUM 3.9 MMOL/L (3.5-5.1); SODIUM 140 MMOL/L (135-145); TOTAL CARBON DIOXIDE 25.1 MMOL/L (24-32); eGFR 24 ML/MIN
[2024-09-24 18:10] LABS: PLATELET COUNT 15 X10'3 (140-440)
[2024-09-24 18:19] LABS: PHOSPHORUS 2.1 MG/DL (2.3-4.5)
[2024-09-24] MEDS: metroNIDAZOLE-Flagyl 500mg/NS 100 ML IV SCH (19:37)
[2024-09-25] VITALS (37 sets, daily range): BP systolic 110–186; BP diastolic 35–89; PULSE 64–94; RESP 15–37; TEMP 97.5–98.4; O2SAT 92–100
[2024-09-25 00:52] LABS: BASOPHILS % (AUTO) 0.1 % (0-1); EOSINOPHILS % (AUTO) 0 % (0-6); MONOCYTES # (AUTO) 1.2 X10'3 (0-0.9); RED BLOOD COUNT 3.48 X10'6 (4.20-5.60)
[2024-09-25 00:54] LABS: HEMATOCRIT 24.5 % (35.0-45.0); HEMOGLOBIN 7.6 g/dl (12.0-16.0); LYMPHOCYTES # (AUTO) 1.7 X10'3 (1.1-4.8); LYMPHOCYTES % (AUTO) 16.5 % (21-51); MEAN CORPUSCULAR HGB CONC 31.2 g/dL (33.0-36.5); MEAN CORPUSCULAR VOLUME 70.6 FL (78-98); MEAN PLATELET VOLUME 10.5 FL (7.4-10.4); MONOCYTES % (AUTO) 12.1 % (2-12); NEUTROPHILS # (AUTO) 7.2 X10'3 (1.8-7.7); NEUTROPHILS % (AUTO) 71.3 % (42-75); RED CELL DISTRIBUTION WIDTH 21.6 % (11.5-14.5); WHITE BLOOD COUNT 10.1 X10'3 (4.5-11.0)
[2024-09-25 01:02] LABS: PLATELET COUNT 14 X10'3 (140-440)
[2024-09-25 01:06] LABS: ALANINE AMINOTRANSFERASE 61 U/L (12-78); ALKALINE PHOSPHATASE 207 IU/L (46-116); ANION GAP 9 (8-16); ASPARTATE AMINO TRANSFERASE 138 U/L (10-37); BILIRUBIN,TOTAL 8.6 MG/DL (0.1-1.0); BLOOD UREA NITROGEN 48 MG/DL (7-18); BUN/CREATININE RATIO 24.4 (10.0-20.0); CHLORIDE 104 MMOL/L (99-107); CREATININE 1.97 MG/DL (0.40-0.90); GLUCOSE 209 MG/DL (70-104); POTASSIUM 3.8 MMOL/L (3.5-5.1); SODIUM 140 MMOL/L (135-145); TOTAL CARBON DIOXIDE 27.3 MMOL/L (24-32); eCRCL 37 ML/MIN; eGFR 28 ML/MIN
[2024-09-25 01:08] LABS: ALBUMIN/GLOBULIN RATIO 0.6 (1.1-1.5); LACTATE DEHYDROGENASE 358 U/L (81-234); LIPASE 136 U/L (16-77); PHOSPHORUS 1.7 MG/DL (2.3-4.5); TOTAL PROTEIN 5.6 G/DL (6.4-8.2)
[2024-09-25 01:18] LABS: NUCLEATED RED BLOOD CELLS 6 /100WBC (0-0); TOTAL CELLS COUNTED 100
[2024-09-25 04:15] LABS: ABG BASE EXCESS 0.1 mmol/L (-2.0-3.0); ABG OXYGEN SATURATION 98.8 % (94.0-98.0); ABG PCO2 (T) 34.9 mmHg (32.0-45.0); ABG PH (T) 7.453 (7.350-7.450); ABG PO2 (T) 108.3 mmHg (83.0-108.0); FCOHb 1.5 % (0.5-1.5); FHHb 1.2 % (0.0-5.0); FO2Hb 97.3 % (94.0-98.0); MODE PRVC; PATIENT TEMPERATURE 36.5; PEEP 5 cm H2O; RESPIRATORY RATE 18 b/min; TIDAL VOLUME 475 mL; TOTAL HEMOGLOBIN 8.3 G/dl (12.0-16.0)
[2024-09-25 06:49] LABS: ALBUMIN 1.9 G/DL (3.4-5.0); ANION GAP 6 (8-16); BLOOD UREA NITROGEN 50 MG/DL (7-18); BUN/CREATININE RATIO 28.2 (10.0-20.0); CHLORIDE 105 MMOL/L (99-107); CREATININE 1.77 MG/DL (0.40-0.90); GLUCOSE 184 MG/DL (70-104); INR 1.4 INR; MAGNESIUM 1.9 MG/DL (1.5-2.4); POTASSIUM 3.9 MMOL/L (3.5-5.1); PROTHROMBIN TIME 13.9 SECONDS (9.0-12.0); SODIUM 140 MMOL/L (135-145); TOTAL CARBON DIOXIDE 28.7 MMOL/L (24-32); eGFR 31 ML/MIN
[2024-09-25 06:55] LABS: PHOSPHORUS 2.3 MG/DL (2.3-4.5)
[2024-09-25 07:07] LABS: LYMPHOCYTES # (AUTO) 0.3 X10'3 (1.1-4.8); NEUTROPHILS # (AUTO) 9.1 X10'3 (1.8-7.7)
[2024-09-25 07:08] LABS: BASOPHILS % (AUTO) 0.2 % (0-1); EOSINOPHILS # (AUTO) 0.2 X10'3 (0-0.9); EOSINOPHILS % (AUTO) 1.5 % (0-6); HEMATOCRIT 24.6 % (35.0-45.0); HEMOGLOBIN 7.6 g/dl (12.0-16.0); LYMPHOCYTES % (AUTO) 2.9 % (21-51); MEAN CORPUSCULAR HEMOGLOBIN 21.7 PG (27.0-31.0); MEAN CORPUSCULAR HGB CONC 30.8 g/dL (33.0-36.5); MEAN CORPUSCULAR VOLUME 70.5 FL (78-98); MEAN PLATELET VOLUME 10.2 FL (7.4-10.4); MONOCYTES # (AUTO) 1.5 X10'3 (0-0.9); MONOCYTES % (AUTO) 13.1 % (2-12); NEUTROPHILS % (AUTO) 82.3 % (42-75); RED BLOOD COUNT 3.49 X10'6 (4.20-5.60); WHITE BLOOD COUNT 11.1 X10'3 (4.5-11.0)
[2024-09-25] MEDS: azithromycin/NS 500mg/250ml 250 ML IV SCH (07:35)
[2024-09-25 08:05] LABS: PLATELET COUNT 17 X10'3 (140-440)
[2024-09-25 12:17] LABS: BASOPHILS % (AUTO) 0.2 % (0-1); EOSINOPHILS % (AUTO) 0.1 % (0-6); HEMOGLOBIN 7.9 g/dl (12.0-16.0); LYMPHOCYTES # (AUTO) 0.3 X10'3 (1.1-4.8); RED CELL DISTRIBUTION WIDTH 22.2 % (11.5-14.5)
[2024-09-25 12:19] LABS: HEMATOCRIT 25.6 % (35.0-45.0); LYMPHOCYTES % (AUTO) 2.5 % (21-51); MEAN CORPUSCULAR HEMOGLOBIN 21.5 PG (27.0-31.0); MEAN CORPUSCULAR HGB CONC 30.7 g/dL (33.0-36.5); MEAN CORPUSCULAR VOLUME 70.1 FL (78-98); MEAN PLATELET VOLUME 9.8 FL (7.4-10.4); MONOCYTES # (AUTO) 1.6 X10'3 (0-0.9); MONOCYTES % (AUTO) 13.8 % (2-12); NEUTROPHILS # (AUTO) 9.9 X10'3 (1.8-7.7); NEUTROPHILS % (AUTO) 83.4 % (42-75); RED BLOOD COUNT 3.66 X10'6 (4.20-5.60); WHITE BLOOD COUNT 11.9 X10'3 (4.5-11.0)
[2024-09-25 12:22] LABS: ALBUMIN 1.9 G/DL (3.4-5.0); ANION GAP 9 (8-16); BLOOD UREA NITROGEN 51 MG/DL (7-18); BUN/CREATININE RATIO 29.8 (10.0-20.0); CALCIUM CVVH 8.1 MG/DL (8.5-10.1); CHLORIDE 106 MMOL/L (99-107); CREATININE 1.71 MG/DL (0.40-0.90); GLUCOSE 174 MG/DL (70-104); MAGNESIUM 1.9 MG/DL (1.5-2.4); POTASSIUM 3.9 MMOL/L (3.5-5.1); SODIUM 142 MMOL/L (135-145); TOTAL CARBON DIOXIDE 27.3 MMOL/L (24-32); eGFR 32 ML/MIN
[2024-09-25 12:25] LABS: PHOSPHORUS 2.3 MG/DL (2.3-4.5)
[2024-09-25 12:49] LABS: PLATELET COUNT 14 X10'3 (140-440)
[2024-09-25 17:01] LABS: C DIFF SPECIMEN=DIARRHEA? ACCEPTABLE; C DIFFICILE TOXINS A&B NEGATIVE (Neg)
[2024-09-25 17:03] LABS: C DIFF ANTIGEN POSITIVE (NEGATIVE)
[2024-09-25 18:04] LABS: ALBUMIN 1.9 G/DL (3.4-5.0); ANION GAP 8 (8-16); BLOOD UREA NITROGEN 54 MG/DL (7-18); BUN/CREATININE RATIO 34.2 (10.0-20.0); CHLORIDE 106 MMOL/L (99-107); CREATININE 1.58 MG/DL (0.40-0.90); GLUCOSE 187 MG/DL (70-104); MAGNESIUM 1.8 MG/DL (1.5-2.4); POTASSIUM 4.1 MMOL/L (3.5-5.1); SODIUM 140 MMOL/L (135-145); TOTAL CARBON DIOXIDE 26.2 MMOL/L (24-32); eGFR 36 ML/MIN
[2024-09-25 18:09] LABS: BASOPHILS % (AUTO) 0.1 % (0-1); EOSINOPHILS % (AUTO) 0.1 % (0-6); HEMATOCRIT 25.4 % (35.0-45.0); LYMPHOCYTES # (AUTO) 0.4 X10'3 (1.1-4.8); LYMPHOCYTES % (AUTO) 2.7 % (21-51); MEAN CORPUSCULAR HEMOGLOBIN 21.7 PG (27.0-31.0); MEAN CORPUSCULAR HGB CONC 31.4 g/dL (33.0-36.5); MEAN CORPUSCULAR VOLUME 69.3 FL (78-98); MEAN PLATELET VOLUME 8.7 FL (7.4-10.4); MONOCYTES # (AUTO) 1.5 X10'3 (0-0.9); NEUTROPHILS # (AUTO) 12.8 X10'3 (1.8-7.7); NEUTROPHILS % (AUTO) 87.1 % (42-75); RED BLOOD COUNT 3.66 X10'6 (4.20-5.60); RED CELL DISTRIBUTION WIDTH 22.2 % (11.5-14.5); WHITE BLOOD COUNT 14.7 X10'3 (4.5-11.0)
[2024-09-25 18:11] LABS: PHOSPHORUS 2.3 MG/DL (2.3-4.5)
[2024-09-25 18:25] LABS: PLATELET COUNT 19 X10'3 (140-440)
[2024-09-26] VITALS (36 sets, daily range): BP systolic 130–194; BP diastolic 69–104; PULSE 8–92; RESP 9–44; TEMP 97.8; O2SAT 94–99
[2024-09-26 00:40] LABS: ANION GAP 8 (8-16); BLOOD UREA NITROGEN 52 MG/DL (7-18); BUN/CREATININE RATIO 35.6 (10.0-20.0); CALCIUM CVVH 8.2 MG/DL (8.5-10.1); CHLORIDE 106 MMOL/L (99-107); CREATININE 1.46 MG/DL (0.40-0.90); GLUCOSE 171 MG/DL (70-104); MAGNESIUM 1.8 MG/DL (1.5-2.4); POTASSIUM 4.1 MMOL/L (3.5-5.1); SODIUM 141 MMOL/L (135-145); TOTAL CARBON DIOXIDE 26.7 MMOL/L (24-32); eGFR 39 ML/MIN
[2024-09-26 00:46] LABS: PHOSPHORUS 2.4 MG/DL (2.3-4.5)
[2024-09-26 00:49] LABS: RED BLOOD COUNT 3.89 X10'6 (4.20-5.60)
[2024-09-26 00:51] LABS: HEMATOCRIT 27.1 % (35.0-45.0); HEMOGLOBIN 8.4 g/dl (12.0-16.0); MEAN CORPUSCULAR HEMOGLOBIN 21.7 PG (27.0-31.0); MEAN CORPUSCULAR HGB CONC 31.2 g/dL (33.0-36.5); MEAN CORPUSCULAR VOLUME 69.6 FL (78-98); RED CELL DISTRIBUTION WIDTH 22.2 % (11.5-14.5); WHITE BLOOD COUNT 19.7 X10'3 (4.5-11.0)
[2024-09-26 00:59] LABS: PLATELET COUNT 29 X10'3 (140-440)
[2024-09-26 01:16] LABS: ANISOCYTOSIS 3+; MICROCYTOSIS 2+; PLATELET ESTIMATE DECREASED; TOTAL CELLS COUNTED 100
[2024-09-26 01:17] LABS: HYPOCHROMASIA 3+; STOMATOCYTES 2+
[2024-09-26 05:33] LABS: ABG BASE EXCESS -0.9 mmol/L (-2.0-3.0); ABG HCO3 23.1 mmol/L (21.0-28.0); ABG OXYGEN SATURATION 96.2 % (94.0-98.0); ABG PCO2 (T) 34.4 mmHg (32.0-45.0); ABG PH (T) 7.441 (7.350-7.450); ABG PO2 (T) 79.5 mmHg (83.0-108.0); FCOHb 1.8 % (0.5-1.5); FHHb 3.7 % (0.0-5.0); FMetHb 0.3 % (0.0-1.5); FO2Hb 94.2 % (94.0-98.0); MODE CPAP; PATIENT TEMPERATURE 36.3; PEEP 5 cm H2O; TOTAL HEMOGLOBIN 8.9 G/dl (12.0-16.0)
[2024-09-26 06:11] LABS: ALANINE AMINOTRANSFERASE 134 U/L (12-78); ALBUMIN 1.9 G/DL (3.4-5.0); ALKALINE PHOSPHATASE 287 IU/L (46-116); ANION GAP 7 (8-16); ASPARTATE AMINO TRANSFERASE 282 U/L (10-37); BILIRUBIN,TOTAL 8.6 MG/DL (0.1-1.0); BLOOD UREA NITROGEN 51 MG/DL (7-18); BUN/CREATININE RATIO 37.2 (10.0-20.0); CALCIUM 8.1 MG/DL (8.5-10.1); CALCIUM CVVH 8.1 MG/DL (8.5-10.1); CHLORIDE 105 MMOL/L (99-107); CREATININE 1.37 MG/DL (0.40-0.90); GLUCOSE 150 MG/DL (70-104); MAGNESIUM 1.7 MG/DL (1.5-2.4); POTASSIUM 4.2 MMOL/L (3.5-5.1); SODIUM 140 MMOL/L (135-145); TOTAL CARBON DIOXIDE 27.8 MMOL/L (24-32); eCRCL 53 ML/MIN; eGFR 42 ML/MIN
[2024-09-26 06:12] LABS: ALBUMIN/GLOBULIN RATIO 0.5 (1.1-1.5); PHOSPHORUS 2.4 MG/DL (2.3-4.5); TOTAL PROTEIN 5.4 G/DL (6.4-8.2)
[2024-09-26 06:20] LABS: EOSINOPHILS % (AUTO) 0.1 % (0-6); LYMPHOCYTES # (AUTO) 0.5 X10'3 (1.1-4.8)
[2024-09-26 06:22] LABS: BASOPHILS # (AUTO) 0.1 X10'3 (0-0.2); BASOPHILS % (AUTO) 0.3 % (0-1); MEAN CORPUSCULAR HEMOGLOBIN 21.6 PG (27.0-31.0); MEAN CORPUSCULAR HGB CONC 30.7 g/dL (33.0-36.5); MEAN CORPUSCULAR VOLUME 70.3 FL (78-98); MEAN PLATELET VOLUME 9.5 FL (7.4-10.4); MONOCYTES # (AUTO) 1.1 X10'3 (0-0.9); MONOCYTES % (AUTO) 6.3 % (2-12); NEUTROPHILS # (AUTO) 15.5 X10'3 (1.8-7.7); NEUTROPHILS % (AUTO) 90.3 % (42-75); RED CELL DISTRIBUTION WIDTH 22.2 % (11.5-14.5); WHITE BLOOD COUNT 17.1 X10'3 (4.5-11.0)
[2024-09-26 06:38] LABS: PLATELET COUNT 35 X10'3 (140-440)
[2024-09-26 07:13] LABS: ANISOCYTOSIS 3+; MICROCYTOSIS 1+; NUCLEATED RED BLOOD CELLS 2 /100WBC (0-0); PLATELET ESTIMATE DECREASED; TOTAL CELLS COUNTED 100
[2024-09-26 07:15] LABS: POLYCHROMASIA 2+; STOMATOCYTES 2+
[2024-09-26 07:16] LABS: HYPOCHROMASIA 2+; TARGET CELLS 1+
[2024-09-26] MEDS: haloperidol lactate 5mg/ml inj IM PRN (07:16)
[2024-09-26 11:56] LABS: BASOPHILS % (AUTO) 0.1 % (0-1); EOSINOPHILS % (AUTO) 0 % (0-6); HEMATOCRIT 26.3 % (35.0-45.0); HEMOGLOBIN 8.1 g/dl (12.0-16.0); LYMPHOCYTES # (AUTO) 0.3 X10'3 (1.1-4.8); LYMPHOCYTES % (AUTO) 1.5 % (21-51); MEAN CORPUSCULAR HEMOGLOBIN 21.8 PG (27.0-31.0); MEAN CORPUSCULAR HGB CONC 30.9 g/dL (33.0-36.5); MEAN CORPUSCULAR VOLUME 70.4 FL (78-98); MONOCYTES # (AUTO) 0.6 X10'3 (0-0.9); NEUTROPHILS # (AUTO) 18.5 X10'3 (1.8-7.7); NEUTROPHILS % (AUTO) 95.4 % (42-75); RED BLOOD COUNT 3.74 X10'6 (4.20-5.60); RED CELL DISTRIBUTION WIDTH 22.5 % (11.5-14.5); WHITE BLOOD COUNT 19.4 X10'3 (4.5-11.0)
[2024-09-26 12:01] LABS: PLATELET COUNT 48 X10'3 (140-440)
[2024-09-26 12:02] LABS: ANION GAP 6 (8-16); BLOOD UREA NITROGEN 51 MG/DL (7-18); BUN/CREATININE RATIO 39.5 (10.0-20.0); CALCIUM CVVH 8.3 MG/DL (8.5-10.1); CHLORIDE 105 MMOL/L (99-107); CREATININE 1.29 MG/DL (0.40-0.90); GLUCOSE 191 MG/DL (70-104); MAGNESIUM 2.3 MG/DL (1.5-2.4); POTASSIUM 4.2 MMOL/L (3.5-5.1); SODIUM 140 MMOL/L (135-145); TOTAL CARBON DIOXIDE 28.9 MMOL/L (24-32); eGFR 45 ML/MIN
[2024-09-26 12:42] LABS: ALBUMIN 1.9 G/DL (3.4-5.0)
[2024-09-26 12:53] LABS: PHOSPHORUS 2.2 MG/DL (2.3-4.5)
[2024-09-26] MEDS: metroNIDAZOLE-Flagyl 500mg/NS 100 ML IV SCH (15:58)
[2024-09-26 17:45] LABS: HEMOGLOBIN 8.2 g/dl (12.0-16.0); LYMPHOCYTES # (AUTO) 0.4 X10'3 (1.1-4.8); LYMPHOCYTES % (AUTO) 2.3 % (21-51); MEAN CORPUSCULAR HEMOGLOBIN 21.7 PG (27.0-31.0)
[2024-09-26 17:47] LABS: BASOPHILS # (AUTO) 0.1 X10'3 (0-0.2); BASOPHILS % (AUTO) 0.3 % (0-1); EOSINOPHILS % (AUTO) 0 % (0-6); HEMATOCRIT 26.6 % (35.0-45.0); MEAN CORPUSCULAR HGB CONC 30.8 g/dL (33.0-36.5); MEAN CORPUSCULAR VOLUME 70.6 FL (78-98); MEAN PLATELET VOLUME 8.7 FL (7.4-10.4); MONOCYTES # (AUTO) 1.7 X10'3 (0-0.9); MONOCYTES % (AUTO) 9.3 % (2-12); NEUTROPHILS # (AUTO) 16.1 X10'3 (1.8-7.7); NEUTROPHILS % (AUTO) 88.1 % (42-75); PLATELET COUNT 55 X10'3 (140-440); RED BLOOD COUNT 3.77 X10'6 (4.20-5.60); RED CELL DISTRIBUTION WIDTH 23.1 % (11.5-14.5); WHITE BLOOD COUNT 18.2 X10'3 (4.5-11.0)
[2024-09-26 17:57] LABS: ALBUMIN 1.9 G/DL (3.4-5.0); ANION GAP 8 (8-16); BLOOD UREA NITROGEN 49 MG/DL (7-18); BUN/CREATININE RATIO 38.6 (10.0-20.0); CALCIUM CVVH 8.2 MG/DL (8.5-10.1); CHLORIDE 105 MMOL/L (99-107); CREATININE 1.27 MG/DL (0.40-0.90); GLUCOSE 199 MG/DL (70-104); MAGNESIUM 2.4 MG/DL (1.5-2.4); POTASSIUM 4.3 MMOL/L (3.5-5.1); SODIUM 140 MMOL/L (135-145); TOTAL CARBON DIOXIDE 26.7 MMOL/L (24-32); eGFR 46 ML/MIN
[2024-09-26 17:58] LABS: PHOSPHORUS 2.5 MG/DL (2.3-4.5)
[2024-09-26] MEDS ORDERED: VANCOMYCIN LEVEL IV ONE (18:30)
[2024-09-27] VITALS (30 sets, daily range): BP systolic 123–209; BP diastolic 70–126; PULSE 67–130; RESP 7–28; O2SAT 90–98
[2024-09-27 00:43] LABS: ALBUMIN 2.1 G/DL (3.4-5.0); ANION GAP 7 (8-16); BLOOD UREA NITROGEN 50 MG/DL (7-18); BUN/CREATININE RATIO 43.5 (10.0-20.0); CALCIUM CVVH 8.4 MG/DL (8.5-10.1); CHLORIDE 105 MMOL/L (99-107); CREATININE 1.15 MG/DL (0.40-0.90); GLUCOSE 177 MG/DL (70-104); MAGNESIUM 2.1 MG/DL (1.5-2.4); POTASSIUM 4.4 MMOL/L (3.5-5.1); SODIUM 140 MMOL/L (135-145); TOTAL CARBON DIOXIDE 28.3 MMOL/L (24-32); eGFR 51 ML/MIN
[2024-09-27 00:46] LABS: RED BLOOD COUNT 3.94 X10'6 (4.20-5.60)
[2024-09-27 00:47] LABS: HEMATOCRIT 27.6 % (35.0-45.0); HEMOGLOBIN 8.7 g/dl (12.0-16.0); MEAN CORPUSCULAR HEMOGLOBIN 22.1 PG (27.0-31.0); MEAN CORPUSCULAR HGB CONC 31.4 g/dL (33.0-36.5); MEAN CORPUSCULAR VOLUME 70.2 FL (78-98); MEAN PLATELET VOLUME 8.9 FL (7.4-10.4); PLATELET COUNT 67 X10'3 (140-440)
[2024-09-27 00:48] LABS: PHOSPHORUS 2.8 MG/DL (2.3-4.5)
[2024-09-27 01:14] LABS: NUCLEATED RED BLOOD CELLS 1 /100WBC (0-0); PLATELET ESTIMATE DECREASED; TOTAL CELLS COUNTED 100
[2024-09-27 01:15] LABS: ANISOCYTOSIS 3+; HYPOCHROMASIA 3+; MICROCYTOSIS 1+
[2024-09-27 01:16] LABS: STOMATOCYTES 1+
[2024-09-27 03:05] LABS: ABG BASE EXCESS -0.9 mmol/L (-2.0-3.0); ABG HCO3 23.9 mmol/L (21.0-28.0); ABG OXYGEN SATURATION 97.5 % (94.0-98.0); ABG PH (T) 7.402 (7.350-7.450); ABG PO2 (T) 95.2 mmHg (83.0-108.0); ALLEN'S TEST Modified; FCOHb 1.6 % (0.5-1.5); FHHb 2.5 % (0.0-5.0); FO2Hb 95.9 % (94.0-98.0); MODE vent- cpap; PATIENT TEMPERATURE 36.5; PEEP 5 cm H2O; TOTAL HEMOGLOBIN 8.9 G/dl (12.0-16.0)
[2024-09-27 06:55] LABS: BASOPHILS % (AUTO) 0 % (0-1); EOSINOPHILS % (AUTO) 0.1 % (0-6); HEMATOCRIT 28.9 % (35.0-45.0); HEMOGLOBIN 8.8 g/dl (12.0-16.0); LYMPHOCYTES # (AUTO) 0.5 X10'3 (1.1-4.8); LYMPHOCYTES % (AUTO) 1.7 % (21-51); MEAN CORPUSCULAR HEMOGLOBIN 21.7 PG (27.0-31.0); MEAN CORPUSCULAR HGB CONC 30.6 g/dL (33.0-36.5); MEAN CORPUSCULAR VOLUME 71.1 FL (78-98); MEAN PLATELET VOLUME 9.1 FL (7.4-10.4); MONOCYTES # (AUTO) 1.9 X10'3 (0-0.9); NEUTROPHILS % (AUTO) 91.2 % (42-75); PLATELET COUNT 82 X10'3 (140-440); RED BLOOD COUNT 4.07 X10'6 (4.20-5.60); RED CELL DISTRIBUTION WIDTH 22.3 % (11.5-14.5)
[2024-09-27] MEDS: dexmedetomidin/NS 400mcg/100ml 100 ML IV SCH (06:55)
[2024-09-27 07:02] LABS: WHITE BLOOD COUNT 26.4 X10'3 (4.5-11.0)
[2024-09-27 07:04] LABS: ALBUMIN 2.2 G/DL (3.4-5.0); ANION GAP 8 (8-16); BLOOD UREA NITROGEN 48 MG/DL (7-18); BUN/CREATININE RATIO 42.9 (10.0-20.0); CALCIUM CVVH 8.7 MG/DL (8.5-10.1); CHLORIDE 105 MMOL/L (99-107); CREATININE 1.12 MG/DL (0.40-0.90); GLUCOSE 179 MG/DL (70-104); MAGNESIUM 2.1 MG/DL (1.5-2.4); POTASSIUM 4.5 MMOL/L (3.5-5.1); SODIUM 139 MMOL/L (135-145); eGFR 53 ML/MIN
[2024-09-27 07:05] LABS: PHOSPHORUS 2.8 MG/DL (2.3-4.5)
[2024-09-27 07:45] LABS: ANISOCYTOSIS 3+; MICROCYTOSIS 1+; PLATELET ESTIMATE DECREASED; TOTAL CELLS COUNTED 100
[2024-09-27 07:46] LABS: HYPERSEGMENTED NEUTROPHILS FEW; HYPOCHROMASIA 2+; POLYCHROMASIA 1+; STOMATOCYTES 1+; TARGET CELLS 1+
[2024-09-27] MEDS: CefTRIAXone 2gm/D5W 50ml BAG 50 ML IV SCH (07:59)
[2024-09-27] MEDS: metoprolol tartrate 50mg tablet PO SCH (08:03)
[2024-09-27] MEDS: heparin 1,000 units/ml 10ml inj HE ONE ×2 (09:38)
[2024-09-27] MEDS: methylPREDNISolone sod succ 125mg/2ml vial IV SCH (14:32)
[2024-09-27] MEDS: vancomycin 125 MG/5 ML UD oral SOLN.RECON 5mL oral syringe (FIRVANQ) NG SCH (15:03)
[2024-09-28] VITALS (25 sets, daily range): BP systolic 119–161; BP diastolic 62–87; PULSE 38–98; RESP 11–28; TEMP 98.2; O2SAT 93–99
[2024-09-28 05:51] LABS: BASOPHILS % (AUTO) 0.1 % (0-1); EOSINOPHILS % (AUTO) 0 % (0-6); HEMATOCRIT 25.7 % (35.0-45.0); HEMOGLOBIN 7.8 g/dl (12.0-16.0); LYMPHOCYTES # (AUTO) 0.4 X10'3 (1.1-4.8); LYMPHOCYTES % (AUTO) 1.8 % (21-51); MEAN CORPUSCULAR HEMOGLOBIN 21.9 PG (27.0-31.0); MEAN CORPUSCULAR HGB CONC 30.5 g/dL (33.0-36.5); MEAN CORPUSCULAR VOLUME 71.9 FL (78-98); MEAN PLATELET VOLUME 8.6 FL (7.4-10.4); MONOCYTES # (AUTO) 0.7 X10'3 (0-0.9); MONOCYTES % (AUTO) 3.1 % (2-12); NEUTROPHILS # (AUTO) 19.8 X10'3 (1.8-7.7); PLATELET COUNT 92 X10'3 (140-440); RED BLOOD COUNT 3.58 X10'6 (4.20-5.60); RED CELL DISTRIBUTION WIDTH 22.2 % (11.5-14.5); WHITE BLOOD COUNT 20.9 X10'3 (4.5-11.0)
[2024-09-28 06:16] LABS: ALANINE AMINOTRANSFERASE 452 U/L (12-78); ALKALINE PHOSPHATASE 295 IU/L (46-116); ANION GAP 10 (8-16); ASPARTATE AMINO TRANSFERASE 391 U/L (10-37); BILIRUBIN,TOTAL 10.1 MG/DL (0.1-1.0); BLOOD UREA NITROGEN 98 MG/DL (7-18); BUN/CREATININE RATIO 49.7 (10.0-20.0); CALCIUM 8.4 MG/DL (8.5-10.1); CHLORIDE 108 MMOL/L (99-107); CREATININE 1.97 MG/DL (0.40-0.90); GLUCOSE 216 MG/DL (70-104); POTASSIUM 4.6 MMOL/L (3.5-5.1); PREALBUMIN 14.4 MG/DL (19-36); SODIUM 142 MMOL/L (135-145); TOTAL CARBON DIOXIDE 24.5 MMOL/L (24-32); eCRCL 37 ML/MIN; eGFR 28 ML/MIN
[2024-09-28 06:23] LABS: ALBUMIN/GLOBULIN RATIO 0.6 (1.1-1.5); TOTAL PROTEIN 5.4 G/DL (6.4-8.2)
[2024-09-28 06:35] LABS: ANISOCYTOSIS 3+; HYPOCHROMASIA 2+; MICROCYTOSIS 1+; PLATELET ESTIMATE DECREASED; POLYCHROMASIA 1+; TOTAL CELLS COUNTED 100
[2024-09-28 06:36] LABS: TARGET CELLS 1+
[2024-09-28] MEDS: methylPREDNISolone sod succ 125mg/2ml vial IV SCH (07:41)
[2024-09-28] MEDS ORDERED: rifaximin 550mg tablet NG SCH (10:57)
[2024-09-28] MEDS ORDERED: acetaminophen 325mg/10.15ml oral unit dose solution NG PRN ×2 (11:23)
[2024-09-28] MEDS ORDERED: DEXTROSE 15 GM of carb/4 tabs (each vial/BOTTLE has 4 tablets) NG PRN ×2 (11:24)
[2024-09-28] MEDS ORDERED: magnesium hydroxide 30ml (MOM) UD suspension NG PRN (11:25)
[2024-09-28] MEDS ORDERED: mag hydrox/Alum hydrox/simeth 30ml oral suspension NG PRN (11:25)
[2024-09-28] MEDS: lactulose 20gm/30ml cup NG SCH (12:37)
[2024-09-28] MEDS: quetiapine 100mg tablet NG SCH (12:37)
[2024-09-28] MEDS: rifaximin 20mg/ml oral suspension 60 ML BOTTLE NG ONE (12:59)
[2024-09-28 19:11] LABS: INR 1.5 INR; PROTHROMBIN TIME 15.1 SECONDS (9.0-12.0)
[2024-09-28 19:12] LABS: APTT 25 SECONDS (22-32)
[2024-09-28] MEDS: docusate sodium 100mg/10ml UD cup NG SCH (19:19)
[2024-09-28] MEDS: rifaximin 20mg/ml oral suspension 60 ML BOTTLE NG SCH (19:19)
[2024-09-29] VITALS (34 sets, daily range): BP systolic 74–162; BP diastolic 37–91; PULSE 62–124; RESP 15–28; TEMP 98–98.6; O2SAT 94–100
[2024-09-29 03:56] LABS: EOSINOPHILS % (AUTO) 0.1 % (0-6)
[2024-09-29 03:57] LABS: BASOPHILS % (AUTO) 0.1 % (0-1); HEMATOCRIT 23.9 % (35.0-45.0); HEMOGLOBIN 7.5 g/dl (12.0-16.0); LYMPHOCYTES # (AUTO) 0.7 X10'3 (1.1-4.8); LYMPHOCYTES % (AUTO) 3.9 % (21-51); MEAN CORPUSCULAR HEMOGLOBIN 22.7 PG (27.0-31.0); MEAN CORPUSCULAR HGB CONC 31.6 g/dL (33.0-36.5); MEAN CORPUSCULAR VOLUME 71.8 FL (78-98); MEAN PLATELET VOLUME 8.8 FL (7.4-10.4); MONOCYTES # (AUTO) 1.9 X10'3 (0-0.9); MONOCYTES % (AUTO) 10.4 % (2-12); NEUTROPHILS # (AUTO) 15.8 X10'3 (1.8-7.7); NEUTROPHILS % (AUTO) 85.5 % (42-75); PLATELET COUNT 87 X10'3 (140-440); RED BLOOD COUNT 3.33 X10'6 (4.20-5.60); RED CELL DISTRIBUTION WIDTH 22.8 % (11.5-14.5); WHITE BLOOD COUNT 18.5 X10'3 (4.5-11.0)
[2024-09-29 04:14] LABS: TOTAL CELLS COUNTED 100
[2024-09-29 04:15] LABS: HYPERSEGMENTED NEUTROPHILS 1+
[2024-09-29 04:16] LABS: ALBUMIN 2.1 G/DL (3.4-5.0); ALKALINE PHOSPHATASE 324 IU/L (46-116); ANION GAP 14 (8-16); BILIRUBIN,TOTAL 16.5 MG/DL (0.1-1.0); BLOOD UREA NITROGEN 125 MG/DL (7-18); BUN/CREATININE RATIO 56.3 (10.0-20.0); CALCIUM 8.4 MG/DL (8.5-10.1); CHLORIDE 109 MMOL/L (99-107); CREATININE 2.22 MG/DL (0.40-0.90); SODIUM 146 MMOL/L (135-145); TOTAL CARBON DIOXIDE 23.2 MMOL/L (24-32); eCRCL 33 ML/MIN; eGFR 24 ML/MIN
[2024-09-29 04:19] LABS: ALANINE AMINOTRANSFERASE 1097 U/L (12-78); ALBUMIN/GLOBULIN RATIO 0.7 (1.1-1.5); ASPARTATE AMINO TRANSFERASE 1623 U/L (10-37); GLUCOSE 230 MG/DL (70-104); POTASSIUM 3.9 MMOL/L (3.5-5.1); TOTAL PROTEIN 5.1 G/DL (6.4-8.2)
[2024-09-29] MEDS: MULTIVIT-MIN/FERROUS GLUCONATE 9 MG/15 ML LIQUID NG SCH (07:52)
[2024-09-29] MEDS: thiamine 100mg tablet NG SCH (07:54)
[2024-09-29] MEDS: methylPREDNISolone sod succ/PF 40mg inj. IV SCH (08:33)
[2024-09-29] MEDS: EPOETIN ALFA-EPBX 20,000 UNIT/ML 1 ML MDV IV ONE (11:33)
[2024-09-29] MEDS: heparin 1,000 units/ml 10ml inj HE ONE ×2 (11:44→11:45)
[2024-09-29] MEDS: mannitol 12.5gm/50mL VIAL IV ONE (11:46)
[2024-09-29] MEDS: albumin (human) 25% 100ml IV 100 ML IV PRN (12:36)
[2024-09-29] MEDS ORDERED: methylPREDNISolone sod succ/PF 40mg inj. IV SCH (14:00)
[2024-09-29] MEDS: methylPREDNISolone sod succ 125mg/2ml vial IV SCH (14:42)
[2024-09-29] MEDS: calcium acetate 667mg (PhosLO) capsule PO SCH (14:43)
[2024-09-29 15:41] LABS: APTT 47 SECONDS (22-32); INR 1.5 INR; PROTHROMBIN TIME 15.3 SECONDS (9.0-12.0)
[2024-09-29 16:56] LABS: ALBUMIN 2.6 G/DL (3.4-5.0); ALKALINE PHOSPHATASE 323 IU/L (46-116); ANION GAP 10 (8-16); BLOOD UREA NITROGEN 68 MG/DL (7-18); BUN/CREATININE RATIO 49.3 (10.0-20.0); CALCIUM 8.4 MG/DL (8.5-10.1); CHLORIDE 109 MMOL/L (99-107); CREATININE 1.38 MG/DL (0.40-0.90); SODIUM 146 MMOL/L (135-145); eCRCL 52 ML/MIN; eGFR 42 ML/MIN
[2024-09-29 17:09] LABS: ALANINE AMINOTRANSFERASE 1647 U/L (12-78); ALBUMIN/GLOBULIN RATIO 0.9 (1.1-1.5); ASPARTATE AMINO TRANSFERASE 2034 U/L (10-37); GLUCOSE 204 MG/DL (70-104); POTASSIUM 3.5 MMOL/L (3.5-5.1); TOTAL PROTEIN 5.4 G/DL (6.4-8.2)
[2024-09-30] VITALS (8 sets, daily range): BP systolic 153–163; BP diastolic 86–93; PULSE 113–123; RESP 18–24; TEMP 98.6–100.5; O2SAT 90–99
[2024-09-30 06:50] LABS: BASOPHILS % (AUTO) 0.1 % (0-1); EOSINOPHILS % (AUTO) 0 % (0-6); HEMOGLOBIN 7.3 g/dl (12.0-16.0); LYMPHOCYTES # (AUTO) 0.6 X10'3 (1.1-4.8); LYMPHOCYTES % (AUTO) 2.6 % (21-51)
[2024-09-30 06:51] LABS: FIBRINOGEN 193 MG/DL (177-424)
[2024-09-30 06:54] LABS: ABSOLUTE RETICS # 153500 /CUMM (23000-93000); HEMATOCRIT 23.3 % (35.0-45.0); MEAN CORPUSCULAR HEMOGLOBIN 23.2 PG (27.0-31.0); MEAN CORPUSCULAR HGB CONC 31.3 g/dL (33.0-36.5); MEAN CORPUSCULAR VOLUME 73.9 FL (78-98); MEAN PLATELET VOLUME 8.4 FL (7.4-10.4); MONOCYTES # (AUTO) 1.4 X10'3 (0-0.9); MONOCYTES % (AUTO) 5.7 % (2-12); NEUTROPHILS # (AUTO) 22.7 X10'3 (1.8-7.7); NEUTROPHILS % (AUTO) 91.6 % (42-75); PLATELET COUNT 79 X10'3 (140-440); RED BLOOD COUNT 3.15 X10'6 (4.20-5.60); RED CELL DISTRIBUTION WIDTH 23.2 % (11.5-14.5); RETICULOCYTE % (AUTO) 4.9 % (0.5-1.5); WHITE BLOOD COUNT 24.7 X10'3 (4.5-11.0)
[2024-09-30 07:09] LABS: ALBUMIN 2.5 G/DL (3.4-5.0); ALKALINE PHOSPHATASE 310 IU/L (46-116); ANION GAP 12 (8-16); BLOOD UREA NITROGEN 86 MG/DL (7-18); CALCIUM 8.6 MG/DL (8.5-10.1); CHLORIDE 109 MMOL/L (99-107); MAGNESIUM 2.1 MG/DL (1.5-2.4); SODIUM 146 MMOL/L (135-145); TOTAL CARBON DIOXIDE 25.4 MMOL/L (24-32)
[2024-09-30 07:11] LABS: ALANINE AMINOTRANSFERASE 1855 U/L (12-78); ALBUMIN/GLOBULIN RATIO 0.9 (1.1-1.5); ASPARTATE AMINO TRANSFERASE 1759 U/L (10-37); BILIRUBIN,DIRECT 21.8 MG/DL (0-0.3); BUN/CREATININE RATIO 47.8 (10.0-20.0); GLUCOSE 204 MG/DL (70-104); LACTATE DEHYDROGENASE 1181 U/L (81-234); PHOSPHORUS 4.5 MG/DL (2.3-4.5); POTASSIUM 3.9 MMOL/L (3.5-5.1); TOTAL PROTEIN 5.2 G/DL (6.4-8.2); eCRCL 40 ML/MIN; eGFR 31 ML/MIN
[2024-09-30 09:01] LABS: NUCLEATED RED BLOOD CELLS 2 /100WBC (0-0); TOTAL CELLS COUNTED 100
[2024-09-30 09:02] LABS: ANISOCYTOSIS 3+; HYPERSEGMENTED NEUTROPHILS 1+; MICROCYTOSIS 1+; PLATELET ESTIMATE DECREASED
[2024-09-30] MEDS: ondansetron/PF 4mg/2ml inj IV PRN (11:24)
[2024-09-30] MEDS ORDERED: methylPREDNISolone sod succ/PF 40mg inj. IV ONE (12:00)
[2024-09-30] MEDS: methylPREDNISolone sod succ 125mg/2ml vial IV SCH (20:29)
[2024-10-01] VITALS (17 sets, daily range): BP systolic 81–142; BP diastolic 45–78; PULSE 90–125; RESP 16–27; TEMP 98.6–103.1; O2SAT 94–99
[2024-10-01] MEDS: acetaminophen 325mg tablet PO PRN (02:45)
[2024-10-01 02:48] LABS: ABG BASE EXCESS -5.6 mmol/L (-2.0-3.0); ABG HCO3 18.1 mmol/L (21.0-28.0); ABG OXYGEN SATURATION 99.6 % (94.0-98.0); ABG PCO2 (T) 30.2 mmHg (32.0-45.0); ABG PH (T) 7.402 (7.350-7.450); ABG PO2 (T) 197.2 mmHg (83.0-108.0); ALLEN'S TEST Modified; FCOHb 4.8 % (0.5-1.5); FHHb 0.4 % (0.0-5.0); FLOW 15 L/min; FMetHb 0.3 % (0.0-1.5); FO2Hb 94.5 % (94.0-98.0); MODE MASK - NRB; PATIENT TEMPERATURE 38.3; TOTAL HEMOGLOBIN 7.7 G/dl (12.0-16.0)
[2024-10-01] MEDS: normal saline 1000ml 1,000 ML IV ONE (03:05)
[2024-10-01 03:32] LABS: BASOPHILS # (AUTO) 0.1 X10'3 (0-0.2); BASOPHILS % (AUTO) 0.3 % (0-1); MEAN CORPUSCULAR HGB CONC 31.1 g/dL (33.0-36.5)
[2024-10-01 03:36] LABS: EOSINOPHILS % (AUTO) 0.1 % (0-6); HEMATOCRIT 23.9 % (35.0-45.0); HEMOGLOBIN 7.4 g/dl (12.0-16.0); LYMPHOCYTES # (AUTO) 0.6 X10'3 (1.1-4.8); LYMPHOCYTES % (AUTO) 2.6 % (21-51); MEAN CORPUSCULAR VOLUME 77.3 FL (78-98); MEAN PLATELET VOLUME 9.6 FL (7.4-10.4); MONOCYTES % (AUTO) 4.8 % (2-12); NEUTROPHILS # (AUTO) 19.8 X10'3 (1.8-7.7); NEUTROPHILS % (AUTO) 92.2 % (42-75); PLATELET COUNT 60 X10'3 (140-440); RED BLOOD COUNT 3.09 X10'6 (4.20-5.60); RED CELL DISTRIBUTION WIDTH 24.1 % (11.5-14.5); WHITE BLOOD COUNT 21.5 X10'3 (4.5-11.0)
[2024-10-01 03:59] LABS: ALBUMIN 2.4 G/DL (3.4-5.0); ALKALINE PHOSPHATASE 300 IU/L (46-116); BLOOD UREA NITROGEN 115 MG/DL (7-18); CALCIUM 8.5 MG/DL (8.5-10.1); SODIUM 150 MMOL/L (135-145); TOTAL CARBON DIOXIDE 25.4 MMOL/L (24-32)
[2024-10-01 04:02] LABS: ALANINE AMINOTRANSFERASE 1611 U/L (12-78); ANION GAP 12 (8-16); ASPARTATE AMINO TRANSFERASE 871 U/L (10-37); BILIRUBIN,TOTAL 34.4 MG/DL (0.1-1.0); BUN/CREATININE RATIO 46.9 (10.0-20.0); CHLORIDE 113 MMOL/L (99-107); CREATININE 2.45 MG/DL (0.40-0.90); GLUCOSE 290 MG/DL (70-104); MAGNESIUM 2.1 MG/DL (1.5-2.4); PHOSPHORUS 6.1 MG/DL (2.3-4.5); POTASSIUM 4.1 MMOL/L (3.5-5.1); TOTAL PROTEIN 4.9 G/DL (6.4-8.2); eCRCL 30 ML/MIN; eGFR 21 ML/MIN
[2024-10-01 04:08] LABS: APTT 23 SECONDS (22-32); FIBRINOGEN 212 MG/DL (177-424); INR 1.5 INR; PROTHROMBIN TIME 15.1 SECONDS (9.0-12.0)
[2024-10-01] MEDS: acetaminophen 1,000mg/100ml IV 100 ML IV SCH (04:19)
[2024-10-01 04:25] LABS: NUCLEATED RED BLOOD CELLS 3 /100WBC (0-0); TOTAL CELLS COUNTED 100
[2024-10-01 04:26] LABS: ANISOCYTOSIS 2+; MICROCYTOSIS 1+; PLATELET ESTIMATE DECREASED; POIKILOCYTOSIS 2+; SCHISTOCYTES 1+; TARGET CELLS 2+
[2024-10-01 04:27] LABS: HYPERSEGMENTED NEUTROPHILS 1+; POLYCHROMASIA FEW
[2024-10-01] MEDS: sodium chloride 0.45% 1,000 ML IV SCH (04:50)
[2024-10-01] MEDS ORDERED: dextrose 50%-water 50ml dispensing syringe IV PRN ×2 (08:35)
[2024-10-01] MEDS ORDERED: DEXTROSE 15 GM of carb/4 tabs (each vial/BOTTLE has 4 tablets) PO PRN ×2 (08:35)
[2024-10-01] MEDS ORDERED: glucagon, human recombinant 1mg kit SUBCUT PRN (08:35)
[2024-10-01] MEDS: INSULIN LISPRO 100 UNIT/ML INSULN.PEN MULTI-DOSE SQ SCH ×4 (09:00→21:38)
[2024-10-01 11:12] LABS: HBSAG SCREEN Negative (Negative); HEP A AB, IGM Negative (Negative); HEP B CORE AB, IGM Negative (Negative); HEP B CORE AB, TOT Negative (Negative); HEPATITIS C VIRUS ANTIBODY Non Reactive (Non Reactive)
[2024-10-01] MEDS ORDERED: INSULIN LISPRO 100 UNIT/ML INSULN.PEN MULTI-DOSE SQ SCH (12:00)
[2024-10-01] MEDS: EPOETIN ALFA-EPBX 20,000 UNIT/ML 1 ML MDV IV ONE (15:37)
[2024-10-01] MEDS: heparin 1,000 units/ml 10ml inj HE ONE ×2 (15:38)
[2024-10-01] MEDS: albumin (human) 25% 100ml IV 100 ML IV PRN (16:07)
[2024-10-01] MEDS: insulin glargine (Lantus) pen - multi-dose SQ SCH (22:58)
[2024-10-02] VITALS (16 sets, daily range): BP systolic 115–159; BP diastolic 64–100; PULSE 92–106; RESP 12–20; TEMP 97.6–100.7; O2SAT 90–99
[2024-10-02] MEDS: diazepam inj 5 MG/ML inj. IV PRN (01:22)
[2024-10-02] MEDS ORDERED: DEXTROSE 15 GM of carb/4 tabs (each vial/BOTTLE has 4 tablets) NG PRN ×2 (05:23)
[2024-10-02 07:09] LABS: BASOPHILS % (AUTO) 0.1 % (0-1); EOSINOPHILS % (AUTO) 0 % (0-6); LYMPHOCYTES # (AUTO) 0.7 X10'3 (1.1-4.8); MEAN CORPUSCULAR HGB CONC 30.8 g/dL (33.0-36.5); MONOCYTES # (AUTO) 0.9 X10'3 (0-0.9); WHITE BLOOD COUNT 17.7 X10'3 (4.5-11.0)
[2024-10-02 07:12] LABS: LYMPHOCYTES % (AUTO) 3.9 % (21-51); MEAN CORPUSCULAR HEMOGLOBIN 24.4 PG (27.0-31.0); MEAN CORPUSCULAR VOLUME 79.3 FL (78-98); MONOCYTES % (AUTO) 4.8 % (2-12); NEUTROPHILS # (AUTO) 16.2 X10'3 (1.8-7.7); NEUTROPHILS % (AUTO) 91.2 % (42-75); RED BLOOD COUNT 2.31 X10'6 (4.20-5.60); RED CELL DISTRIBUTION WIDTH 32.9 % (11.5-14.5)
[2024-10-02 08:06] LABS: ALANINE AMINOTRANSFERASE 830 U/L (12-78); ALBUMIN 2.3 G/DL (3.4-5.0); ALKALINE PHOSPHATASE 194 IU/L (46-116); ANION GAP 10 (8-16); BLOOD UREA NITROGEN 76 MG/DL (7-18); CALCIUM 8.4 MG/DL (8.5-10.1); CHLORIDE 110 MMOL/L (99-107); MAGNESIUM 1.9 MG/DL (1.5-2.4); SODIUM 146 MMOL/L (135-145); TOTAL CARBON DIOXIDE 26.1 MMOL/L (24-32)
[2024-10-02 08:07] LABS: ALBUMIN/GLOBULIN RATIO 1.1 (1.1-1.5); ASPARTATE AMINO TRANSFERASE 211 U/L (10-37); BILIRUBIN,TOTAL 30.7 MG/DL (0.1-1.0); BUN/CREATININE RATIO 38.6 (10.0-20.0); CREATININE 1.97 MG/DL (0.40-0.90); GLUCOSE 111 MG/DL (70-104); PHOSPHORUS 4.5 MG/DL (2.3-4.5); TOTAL PROTEIN 4.4 G/DL (6.4-8.2); eCRCL 37 ML/MIN; eGFR 28 ML/MIN
[2024-10-02] MEDS: calcium acetate 667mg (PhosLO) capsule NG SCH (08:10)
[2024-10-02 08:17] LABS: HEMATOCRIT 18.3 % (35.0-45.0); HEMOGLOBIN 5.6 g/dl (12.0-16.0); PLATELET COUNT 40 X10'3 (140-440)
[2024-10-02 08:19] LABS: ANISOCYTOSIS 3+; HYPOCHROMASIA 1+; PLATELET ESTIMATE DECREASED; SCHISTOCYTES 1+; TARGET CELLS 2+; TOTAL CELLS COUNTED 100
[2024-10-02] MEDS ORDERED: docusate sodium 100mg/10ml UD cup NG PRN (21:05)
[2024-10-02] MEDS: insulin regular, human U-100 10ml vial - multi-dose SQ SCH ×2 (21:18)
[2024-10-03] VITALS (16 sets, daily range): BP systolic 106–168; BP diastolic 54–103; PULSE 86–115; RESP 13–22; TEMP 97.4–99.5; O2SAT 92–99
[2024-10-03 05:53] LABS: EOSINOPHILS % (AUTO) 0 % (0-6); HEMOGLOBIN 9.8 g/dl (12.0-16.0); MEAN CORPUSCULAR HEMOGLOBIN 25.4 PG (27.0-31.0); MEAN CORPUSCULAR HGB CONC 32.5 g/dL (33.0-36.5)
[2024-10-03 05:55] LABS: BASOPHILS % (AUTO) 0.1 % (0-1); HEMATOCRIT 30.2 % (35.0-45.0); LYMPHOCYTES # (AUTO) 0.5 X10'3 (1.1-4.8); LYMPHOCYTES % (AUTO) 2.2 % (21-51); MEAN CORPUSCULAR VOLUME 78.3 FL (78-98); MONOCYTES % (AUTO) 8.6 % (2-12); NEUTROPHILS % (AUTO) 89.1 % (42-75); RED BLOOD COUNT 3.85 X10'6 (4.20-5.60); RED CELL DISTRIBUTION WIDTH 22.5 % (11.5-14.5); WHITE BLOOD COUNT 23.6 X10'3 (4.5-11.0)
[2024-10-03 06:24] LABS: ALANINE AMINOTRANSFERASE 651 U/L (12-78); ALBUMIN 2.4 G/DL (3.4-5.0); ALKALINE PHOSPHATASE 231 IU/L (46-116); ANION GAP 14 (8-16); BLOOD UREA NITROGEN 109 MG/DL (7-18); BUN/CREATININE RATIO 41.6 (10.0-20.0); CALCIUM 8.5 MG/DL (8.5-10.1); CHLORIDE 111 MMOL/L (99-107); CREATININE 2.62 MG/DL (0.40-0.90); SODIUM 150 MMOL/L (135-145); TOTAL CARBON DIOXIDE 24.9 MMOL/L (24-32); eCRCL 28 ML/MIN; eGFR 20 ML/MIN
[2024-10-03 06:29] LABS: ASPARTATE AMINO TRANSFERASE 155 U/L (10-37); BILIRUBIN,TOTAL 33.9 MG/DL (0.1-1.0); GLUCOSE 128 MG/DL (70-104); PHOSPHORUS 4.5 MG/DL (2.3-4.5); POTASSIUM 3.3 MMOL/L (3.5-5.1); TOTAL PROTEIN 4.7 G/DL (6.4-8.2)
[2024-10-03 07:01] LABS: PLATELET COUNT 32 X10'3 (140-440)
[2024-10-03 07:10] LABS: NUCLEATED RED BLOOD CELLS 2 /100WBC (0-0); PLATELET ESTIMATE DECREASED; TOTAL CELLS COUNTED 100
[2024-10-03 07:12] LABS: ANISOCYTOSIS 3+; MICROCYTOSIS 1+
[2024-10-03 07:13] LABS: HYPOCHROMASIA 1+; POLYCHROMASIA 2+; SCHISTOCYTES 1+; TARGET CELLS 2+
[2024-10-03 07:14] LABS: BURR CELLS 1+
[2024-10-03] MEDS ORDERED: albumin (human) 25% 100ml IV 100 ML IV PRN (07:55)
[2024-10-03] MEDS: micafungin inj 100 MG in normal saline 100ml IV soln 100 ML IV SCH (10:48)
[2024-10-03] MEDS: potassium Cl 40MEQ/1/2NS 520ml 520 ML IV PRN (12:05)
[2024-10-03] MEDS: EPOETIN ALFA-EPBX 20,000 UNIT/ML 1 ML MDV IV ONE (15:18)
[2024-10-03] MEDS ORDERED: insulin regular, human U-100 10ml vial - multi-dose SQ SCH (18:35)
[2024-10-03] MEDS: PERFLUTREN PROTEIN-A MICROSPHR (Optison) 0.22 MG/ML 3ML VIAL IV ONE (18:44)
[2024-10-04] VITALS (9 sets, daily range): BP systolic 114–150; BP diastolic 72–91; PULSE 98–142; RESP 13–18; TEMP 98.5–100.1; O2SAT 92–100
[2024-10-04 07:15] LABS: EOSINOPHILS % (AUTO) 0 % (0-6); HEMOGLOBIN 9.8 g/dl (12.0-16.0)
[2024-10-04 07:16] LABS: BASOPHILS # (AUTO) 0.2 X10'3 (0-0.2); BASOPHILS % (AUTO) 0.5 % (0-1); LYMPHOCYTES # (AUTO) 0.6 X10'3 (1.1-4.8); LYMPHOCYTES % (AUTO) 1.8 % (21-51); MEAN CORPUSCULAR HEMOGLOBIN 25.8 PG (27.0-31.0); MEAN CORPUSCULAR HGB CONC 31.6 g/dL (33.0-36.5); MEAN CORPUSCULAR VOLUME 81.5 FL (78-98); MEAN PLATELET VOLUME 9.3 FL (7.4-10.4); MONOCYTES # (AUTO) 1.7 X10'3 (0-0.9); MONOCYTES % (AUTO) 5.4 % (2-12); NEUTROPHILS # (AUTO) 28.6 X10'3 (1.8-7.7); NEUTROPHILS % (AUTO) 92.3 % (42-75); RED CELL DISTRIBUTION WIDTH 22.6 % (11.5-14.5)
[2024-10-04 07:24] LABS: ALANINE AMINOTRANSFERASE 397 U/L (12-78); ALBUMIN 2.2 G/DL (3.4-5.0); ALKALINE PHOSPHATASE 198 IU/L (46-116); ANION GAP 9 (8-16); BILIRUBIN,TOTAL 23.2 MG/DL (0.1-1.0); BLOOD UREA NITROGEN 75 MG/DL (7-18); CALCIUM 8.4 MG/DL (8.5-10.1); CHLORIDE 112 MMOL/L (99-107); SODIUM 147 MMOL/L (135-145); TOTAL CARBON DIOXIDE 26.2 MMOL/L (24-32)
[2024-10-04 07:25] LABS: PLATELET COUNT 29 X10'3 (140-440)
[2024-10-04 07:27] LABS: ALBUMIN/GLOBULIN RATIO 0.9 (1.1-1.5); ASPARTATE AMINO TRANSFERASE 63 U/L (10-37); BUN/CREATININE RATIO 40.1 (10.0-20.0); CREATININE 1.87 MG/DL (0.40-0.90); GLUCOSE 185 MG/DL (70-104); POTASSIUM 3.2 MMOL/L (3.5-5.1); TOTAL PROTEIN 4.7 G/DL (6.4-8.2); eCRCL 39 ML/MIN; eGFR 29 ML/MIN
[2024-10-04 08:23] LABS: NUCLEATED RED BLOOD CELLS 2 /100WBC (0-0); TOTAL CELLS COUNTED 100
[2024-10-04 08:24] LABS: ANISOCYTOSIS 3+; BURR CELLS 1+; HYPOCHROMASIA 1+; MICROCYTOSIS 1+; PLATELET ESTIMATE DECREASED; POLYCHROMASIA 2+; SCHISTOCYTES 1+
[2024-10-04] MEDS: insulin regular, human U-100 10ml vial - multi-dose SQ SCH (09:00)
[2024-10-04] MEDS: acetaminophen 325mg tablet NG PRN (16:56)
[2024-10-05] VITALS (7 sets, daily range): BP systolic 112–132; BP diastolic 61–86; PULSE 90–142; RESP 15–24; TEMP 97.8–100.1; O2SAT 96–100
[2024-10-05 07:41] LABS: PREALBUMIN 19.2 MG/DL (19-36)
[2024-10-05 09:21] LABS: HEMOGLOBIN 8.8 g/dl (12.0-16.0); WHITE BLOOD COUNT 21.8 X10'3 (4.5-11.0)
[2024-10-05 09:23] LABS: BASOPHILS # (AUTO) 0.1 X10'3 (0-0.2); BASOPHILS % (AUTO) 0.2 % (0-1); EOSINOPHILS # (AUTO) 0.1 X10'3 (0-0.9); EOSINOPHILS % (AUTO) 0.5 % (0-6); HEMATOCRIT 29.2 % (35.0-45.0); LYMPHOCYTES # (AUTO) 0.6 X10'3 (1.1-4.8); LYMPHOCYTES % (AUTO) 2.5 % (21-51); MEAN CORPUSCULAR HEMOGLOBIN 26.4 PG (27.0-31.0); MEAN CORPUSCULAR HGB CONC 30.2 g/dL (33.0-36.5); MEAN CORPUSCULAR VOLUME 87.5 FL (78-98); MEAN PLATELET VOLUME 10.7 FL (7.4-10.4); MONOCYTES # (AUTO) 0.7 X10'3 (0-0.9); MONOCYTES % (AUTO) 3.2 % (2-12); NEUTROPHILS # (AUTO) 20.4 X10'3 (1.8-7.7); NEUTROPHILS % (AUTO) 93.6 % (42-75); RED BLOOD COUNT 3.34 X10'6 (4.20-5.60); RED CELL DISTRIBUTION WIDTH 32.6 % (11.5-14.5)
[2024-10-05 09:34] LABS: PLATELET COUNT 21 X10'3 (140-440)
[2024-10-05 09:47] LABS: ALANINE AMINOTRANSFERASE 246 U/L (12-78); ALBUMIN/GLOBULIN RATIO 0.8 (1.1-1.5); ALKALINE PHOSPHATASE 171 IU/L (46-116); ANION GAP 11 (8-16); ASPARTATE AMINO TRANSFERASE 58 U/L (10-37); BILIRUBIN,TOTAL 17.5 MG/DL (0.1-1.0); BLOOD UREA NITROGEN 84 MG/DL (7-18); BUN/CREATININE RATIO 40.8 (10.0-20.0); CALCIUM 8.1 MG/DL (8.5-10.1); CHLORIDE 116 MMOL/L (99-107); CREATININE 2.06 MG/DL (0.40-0.90); GLUCOSE 137 MG/DL (70-104); POTASSIUM 3.2 MMOL/L (3.5-5.1); SODIUM 150 MMOL/L (135-145); TOTAL PROTEIN 4.4 G/DL (6.4-8.2); eCRCL 35 ML/MIN; eGFR 26 ML/MIN
[2024-10-05 10:16] LABS: ANISOCYTOSIS 3+; PLATELET ESTIMATE DECREASED; TOTAL CELLS COUNTED 100
[2024-10-05 10:17] LABS: MICROCYTOSIS 1+; POLYCHROMASIA 2+; SCHISTOCYTES 1+; TARGET CELLS 1+
[2024-10-05 10:18] LABS: BURR CELLS 1+
[2024-10-05] MEDS: sodium chloride 0.45% 1,000 ML IV SCH (12:05)
[2024-10-05] MEDS ORDERED: magnesium Cl slow-release 64mg tablet PO PRN (12:25)
[2024-10-05] MEDS ORDERED: potassium Cl 20 mEq SR tablet PO PRN (12:25)
[2024-10-05] MEDS: potassium Cl 20 mEq SR tablet PO PRN (15:44)
[2024-10-05] MEDS: metoprolol succinate 25mg (24-HOUR) SR. Tablet PO ONE (17:08)
[2024-10-06] VITALS (8 sets, daily range): BP systolic 116–146; BP diastolic 75–86; PULSE 86–133; RESP 17–26; TEMP 99.3–101.1; O2SAT 95–99
[2024-10-06] MEDS: EPOETIN ALFA-EPBX 20,000 UNIT/ML 1 ML MDV IV ONE (06:15)
[2024-10-06] MEDS ORDERED: albumin (human) 25% 100ml IV 100 ML IV PRN (06:15)
[2024-10-06 08:50] LABS: BASOPHILS % (AUTO) 0.1 % (0-1); EOSINOPHILS # (AUTO) 0.3 X10'3 (0-0.9); HEMOGLOBIN 7.6 g/dl (12.0-16.0); LYMPHOCYTES # (AUTO) 0.3 X10'3 (1.1-4.8); MEAN CORPUSCULAR HEMOGLOBIN 27.1 PG (27.0-31.0); WHITE BLOOD COUNT 14.9 X10'3 (4.5-11.0)
[2024-10-06 08:51] LABS: HEMATOCRIT 24.9 % (35.0-45.0); LYMPHOCYTES % (AUTO) 2.1 % (21-51); MEAN CORPUSCULAR HGB CONC 30.6 g/dL (33.0-36.5); MEAN CORPUSCULAR VOLUME 88.6 FL (78-98); MONOCYTES # (AUTO) 0.8 X10'3 (0-0.9); MONOCYTES % (AUTO) 5.3 % (2-12); NEUTROPHILS # (AUTO) 13.4 X10'3 (1.8-7.7); NEUTROPHILS % (AUTO) 90.5 % (42-75); RED BLOOD COUNT 2.81 X10'6 (4.20-5.60); RED CELL DISTRIBUTION WIDTH 41.9 % (11.5-14.5)
[2024-10-06 08:56] LABS: PLATELET COUNT 20 X10'3 (140-440)
[2024-10-06 08:59] LABS: MAGNESIUM 1.7 MG/DL (1.5-2.4)
[2024-10-06 09:32] LABS: ALANINE AMINOTRANSFERASE 170 U/L (12-78); ALBUMIN 1.7 G/DL (3.4-5.0); ALKALINE PHOSPHATASE 148 IU/L (46-116); ANION GAP 12 (8-16); BILIRUBIN,TOTAL 16.2 MG/DL (0.1-1.0); BLOOD UREA NITROGEN 73 MG/DL (7-18); CALCIUM 7.7 MG/DL (8.5-10.1); POTASSIUM 3.5 MMOL/L (3.5-5.1); SODIUM 150 MMOL/L (135-145); TOTAL CARBON DIOXIDE 22.2 MMOL/L (24-32)
[2024-10-06 09:33] LABS: ALBUMIN/GLOBULIN RATIO 0.6 (1.1-1.5); ASPARTATE AMINO TRANSFERASE 39 U/L (10-37); BUN/CREATININE RATIO 41.5 (10.0-20.0); CHLORIDE 116 MMOL/L (99-107); CREATININE 1.76 MG/DL (0.40-0.90); GLUCOSE 143 MG/DL (70-104); PHOSPHORUS 4.4 MG/DL (2.3-4.5); TOTAL PROTEIN 4.4 G/DL (6.4-8.2); eCRCL 41 ML/MIN; eGFR 31 ML/MIN
[2024-10-06] MEDS: rifaximin 550mg tablet NG SCH (20:49)
[2024-10-06] MEDS: valacyclovir 500mg tablet PO SCH (21:07)
[2024-10-07] VITALS (7 sets, daily range): BP systolic 128–145; BP diastolic 72–87; PULSE 92–133; RESP 17–20; TEMP 97.6–99.2; O2SAT 96–99
[2024-10-07 06:54] LABS: HEMOGLOBIN 7.4 g/dl (12.0-16.0); LYMPHOCYTES # (AUTO) 0.3 X10'3 (1.1-4.8); MEAN CORPUSCULAR VOLUME 91.6 FL (78-98); RED CELL DISTRIBUTION WIDTH 43.2 % (11.5-14.5); WHITE BLOOD COUNT 11.2 X10'3 (4.5-11.0)
[2024-10-07 06:56] LABS: BASOPHILS % (AUTO) 0.3 % (0-1); EOSINOPHILS # (AUTO) 0.4 X10'3 (0-0.9); EOSINOPHILS % (AUTO) 3.3 % (0-6); HEMATOCRIT 24.1 % (35.0-45.0); LYMPHOCYTES % (AUTO) 2.9 % (21-51); MEAN CORPUSCULAR HEMOGLOBIN 28.3 PG (27.0-31.0); MEAN CORPUSCULAR HGB CONC 30.8 g/dL (33.0-36.5); MEAN PLATELET VOLUME 9.5 FL (7.4-10.4); MONOCYTES # (AUTO) 1.4 X10'3 (0-0.9); MONOCYTES % (AUTO) 12.9 % (2-12); NEUTROPHILS % (AUTO) 80.6 % (42-75); RED BLOOD COUNT 2.63 X10'6 (4.20-5.60)
[2024-10-07 07:01] LABS: ANION GAP 10 (8-16); BLOOD UREA NITROGEN 66 MG/DL (7-18); BUN/CREATININE RATIO 40.5 (10.0-20.0); CREATININE 1.63 MG/DL (0.40-0.90); SODIUM 148 MMOL/L (135-145); TOTAL CARBON DIOXIDE 23.3 MMOL/L (24-32)
[2024-10-07 07:02] LABS: ALANINE AMINOTRANSFERASE 133 U/L (12-78); ALBUMIN 1.7 G/DL (3.4-5.0); ALKALINE PHOSPHATASE 148 IU/L (46-116); BILIRUBIN,TOTAL 15.3 MG/DL (0.1-1.0); MAGNESIUM 1.7 MG/DL (1.5-2.4); eCRCL 44 ML/MIN; eGFR 34 ML/MIN
[2024-10-07 07:03] LABS: PLATELET COUNT 22 X10'3 (140-440)
[2024-10-07 07:07] LABS: ALBUMIN/GLOBULIN RATIO 0.6 (1.1-1.5); ASPARTATE AMINO TRANSFERASE 43 U/L (10-37); GLUCOSE 114 MG/DL (70-104); PHOSPHORUS 4.5 MG/DL (2.3-4.5); POTASSIUM 3.7 MMOL/L (3.5-5.1); TOTAL PROTEIN 4.6 G/DL (6.4-8.2)
[2024-10-07 07:13] LABS: CHLORIDE 115 MMOL/L (99-107)
[2024-10-08] VITALS (10 sets, daily range): BP systolic 102–141; BP diastolic 69–94; PULSE 98–133; RESP 14–20; TEMP 97–99.2; O2SAT 96–100
[2024-10-08 06:48] LABS: EOSINOPHILS # (AUTO) 0.4 X10'3 (0-0.9); HEMOGLOBIN 7.3 g/dl (12.0-16.0); MEAN PLATELET VOLUME 9.1 FL (7.4-10.4)
[2024-10-08 06:52] LABS: BASOPHILS % (AUTO) 0.3 % (0-1); HEMATOCRIT 23.2 % (35.0-45.0); LYMPHOCYTES # (AUTO) 0.4 X10'3 (1.1-4.8); LYMPHOCYTES % (AUTO) 4.3 % (21-51); MEAN CORPUSCULAR HEMOGLOBIN 29.1 PG (27.0-31.0); MEAN CORPUSCULAR HGB CONC 31.6 g/dL (33.0-36.5); MEAN CORPUSCULAR VOLUME 92.2 FL (78-98); MONOCYTES # (AUTO) 1.2 X10'3 (0-0.9); NEUTROPHILS % (AUTO) 78.4 % (42-75); RED BLOOD COUNT 2.52 X10'6 (4.20-5.60); RED CELL DISTRIBUTION WIDTH 42.7 % (11.5-14.5)
[2024-10-08 06:55] LABS: ALANINE AMINOTRANSFERASE 108 U/L (12-78); ALBUMIN 1.6 G/DL (3.4-5.0); ALKALINE PHOSPHATASE 153 IU/L (46-116); ANION GAP 7 (8-16); BILIRUBIN,TOTAL 14.6 MG/DL (0.1-1.0); BLOOD UREA NITROGEN 52 MG/DL (7-18); BUN/CREATININE RATIO 35.6 (10.0-20.0); CALCIUM 8.1 MG/DL (8.5-10.1); CHLORIDE 117 MMOL/L (99-107); CREATININE 1.46 MG/DL (0.40-0.90); MAGNESIUM 1.5 MG/DL (1.5-2.4); PREALBUMIN 14.7 MG/DL (19-36); SODIUM 149 MMOL/L (135-145); TOTAL CARBON DIOXIDE 24.6 MMOL/L (24-32); eCRCL 50 ML/MIN; eGFR 39 ML/MIN
[2024-10-08 07:04] LABS: ALBUMIN/GLOBULIN RATIO 0.5 (1.1-1.5); ASPARTATE AMINO TRANSFERASE 38 U/L (10-37); GLUCOSE 96 MG/DL (70-104); PHOSPHORUS 4.1 MG/DL (2.3-4.5); POTASSIUM 3.4 MMOL/L (3.5-5.1)
[2024-10-08 07:24] LABS: PLATELET COUNT 38 X10'3 (140-440)
[2024-10-08 08:54] LABS: TOTAL CELLS COUNTED 100
[2024-10-08 08:57] LABS: ANISOCYTOSIS 3+; MICROCYTOSIS 1+; PLATELET ESTIMATE DECREASED; SCHISTOCYTES 1+; TARGET CELLS 1+
[2024-10-08 09:01] LABS: BURR CELLS FEW; HYPOCHROMASIA 1+
[2024-10-08] MEDS: metoprolol tartrate 50mg tablet NG SCH (09:28)
[2024-10-09] VITALS (7 sets, daily range): BP systolic 107–147; BP diastolic 67–86; PULSE 85–133; RESP 15–20; TEMP 96.9–99.8; O2SAT 97–100
[2024-10-09 07:43] LABS: ALANINE AMINOTRANSFERASE 89 U/L (12-78); ALBUMIN 1.7 G/DL (3.4-5.0); ALKALINE PHOSPHATASE 168 IU/L (46-116); ANION GAP 7 (8-16); ASPARTATE AMINO TRANSFERASE 37 U/L (10-37); BILIRUBIN,TOTAL 13.1 MG/DL (0.1-1.0); BLOOD UREA NITROGEN 43 MG/DL (7-18); BUN/CREATININE RATIO 35.2 (10.0-20.0); CALCIUM 8.1 MG/DL (8.5-10.1); CHLORIDE 115 MMOL/L (99-107); CREATININE 1.22 MG/DL (0.40-0.90); GLUCOSE 120 MG/DL (70-104); MAGNESIUM 1.5 MG/DL (1.5-2.4); POTASSIUM 3.6 MMOL/L (3.5-5.1); SODIUM 147 MMOL/L (135-145); TOTAL CARBON DIOXIDE 24.6 MMOL/L (24-32); eCRCL 59 ML/MIN; eGFR 48 ML/MIN
[2024-10-09 07:51] LABS: ALBUMIN/GLOBULIN RATIO 0.5 (1.1-1.5); PHOSPHORUS 3.6 MG/DL (2.3-4.5)
[2024-10-09 09:52] LABS: EOSINOPHILS # (AUTO) 0.2 X10'3 (0-0.9); HEMOGLOBIN 7.2 g/dl (12.0-16.0); MEAN CORPUSCULAR HEMOGLOBIN 29.4 PG (27.0-31.0); RED BLOOD COUNT 2.44 X10'6 (4.20-5.60)
[2024-10-09 09:56] LABS: BASOPHILS % (AUTO) 0.2 % (0-1); HEMATOCRIT 23.2 % (35.0-45.0); LYMPHOCYTES # (AUTO) 0.3 X10'3 (1.1-4.8); LYMPHOCYTES % (AUTO) 3.9 % (21-51); MEAN CORPUSCULAR HGB CONC 30.8 g/dL (33.0-36.5); MEAN CORPUSCULAR VOLUME 95.4 FL (78-98); MONOCYTES # (AUTO) 1.2 X10'3 (0-0.9); MONOCYTES % (AUTO) 14.9 % (2-12); NEUTROPHILS # (AUTO) 6.1 X10'3 (1.8-7.7); RED CELL DISTRIBUTION WIDTH 41.7 % (11.5-14.5); WHITE BLOOD COUNT 7.8 X10'3 (4.5-11.0)
[2024-10-09 10:10] LABS: PLATELET COUNT 47 X10'3 (140-440)
[2024-10-09 10:45] LABS: ANISOCYTOSIS 3+; PLATELET ESTIMATE DECREASED
[2024-10-09 10:46] LABS: ELLIPTOCYTES FEW; SCHISTOCYTES 1+; TARGET CELLS 1+; TEAR DROP CELLS FEW
[2024-10-09] MEDS ORDERED: metoprolol tartrate 1mg/ml inj IV ONE (23:10)
[2024-10-10] VITALS (8 sets, daily range): BP systolic 99–131; BP diastolic 66–80; PULSE 87–135; RESP 16–22; TEMP 97.2–99.4; O2SAT 97–100
[2024-10-10] MEDS: normal saline 500ml IV soln 500 ML IV ONE ×2 (00:06→02:15)
[2024-10-10] MEDS: normal saline 1000ml 1,000 ML IV ONE (05:31)
[2024-10-10 07:24] LABS: HEMOGLOBIN 7.2 g/dl (12.0-16.0); WHITE BLOOD COUNT 6.6 X10'3 (4.5-11.0)
[2024-10-10 07:27] LABS: BASOPHILS % (AUTO) 0.4 % (0-1); EOSINOPHILS # (AUTO) 0.2 X10'3 (0-0.9); EOSINOPHILS % (AUTO) 3.7 % (0-6); HEMATOCRIT 23.4 % (35.0-45.0); LYMPHOCYTES % (AUTO) 15.2 % (21-51); MEAN CORPUSCULAR HEMOGLOBIN 29.8 PG (27.0-31.0); MEAN CORPUSCULAR HGB CONC 30.7 g/dL (33.0-36.5); MEAN CORPUSCULAR VOLUME 96.9 FL (78-98); MEAN PLATELET VOLUME 9.4 FL (7.4-10.4); MONOCYTES # (AUTO) 0.3 X10'3 (0-0.9); MONOCYTES % (AUTO) 5.2 % (2-12); NEUTROPHILS % (AUTO) 75.5 % (42-75); PLATELET COUNT 53 X10'3 (140-440); RED BLOOD COUNT 2.42 X10'6 (4.20-5.60); RED CELL DISTRIBUTION WIDTH 40.7 % (11.5-14.5)
[2024-10-10 08:07] LABS: ALANINE AMINOTRANSFERASE 77 U/L (12-78); ALBUMIN 1.6 G/DL (3.4-5.0); ALKALINE PHOSPHATASE 199 IU/L (46-116); ANION GAP 9 (8-16); ASPARTATE AMINO TRANSFERASE 39 U/L (10-37); BLOOD UREA NITROGEN 37 MG/DL (7-18); CALCIUM 7.8 MG/DL (8.5-10.1); CHLORIDE 115 MMOL/L (99-107); CREATININE 1.12 MG/DL (0.40-0.90); GLUCOSE 115 MG/DL (70-104); MAGNESIUM 1.4 MG/DL (1.5-2.4); POTASSIUM 3.5 MMOL/L (3.5-5.1); SODIUM 147 MMOL/L (135-145); TOTAL CARBON DIOXIDE 23.5 MMOL/L (24-32); eCRCL 65 ML/MIN; eGFR 53 ML/MIN
[2024-10-10 08:08] LABS: ALBUMIN/GLOBULIN RATIO 0.5 (1.1-1.5); PHOSPHORUS 3.8 MG/DL (2.3-4.5)
[2024-10-10] MEDS: metoprolol tartrate 1mg/ml inj IV ONE (09:30)
[2024-10-10] MEDS: normal saline 1000ml 1,000 ML IV SCH (09:30)
[2024-10-10 09:53] LABS: HEMOGLOBIN A1C 4.3 % (4.5-6.2)
[2024-10-11] VITALS (7 sets, daily range): BP systolic 124–139; BP diastolic 72–87; PULSE 76–110; RESP 16–20; TEMP 97.3–98.6; O2SAT 98–100
[2024-10-11 07:34] LABS: MAGNESIUM 1.9 MG/DL (1.5-2.4)
[2024-10-11 07:36] LABS: PHOSPHORUS 3.7 MG/DL (2.3-4.5)
[2024-10-11] MEDS: quetiapine 100mg tablet NG SCH (09:05)
[2024-10-11] MEDS ORDERED: DEXTROSE 15 GM of carb/4 tabs (each vial/BOTTLE has 4 tablets) PO PRN ×2 (19:42)
[2024-10-11] MEDS ORDERED: magnesium hydroxide 30ml (MOM) UD suspension PO PRN (19:46)
[2024-10-11] MEDS: lactulose 20gm/30ml cup PO SCH (19:49)
[2024-10-11] MEDS: metoprolol tartrate 50mg tablet PO SCH (20:00)
[2024-10-11] MEDS: rifaximin 550mg tablet PO SCH (20:00)
[2024-10-12] VITALS (14 sets, daily range): BP systolic 126–142; BP diastolic 70–82; PULSE 69–106; RESP 14–24; TEMP 97–100.7; O2SAT 98–100
[2024-10-12 06:56] LABS: PLATELET COUNT 53 X10'3 (140-440)
[2024-10-12 06:58] LABS: MEAN CORPUSCULAR HEMOGLOBIN 30.5 PG (27.0-31.0); MEAN CORPUSCULAR HGB CONC 31.4 g/dL (33.0-36.5); MEAN CORPUSCULAR VOLUME 97.2 FL (78-98); RED BLOOD COUNT 2.17 X10'6 (4.20-5.60); WHITE BLOOD COUNT 4.7 X10'3 (4.5-11.0)
[2024-10-12 07:19] LABS: ALBUMIN 1.5 G/DL (3.4-5.0); ANION GAP 10 (8-16); BLOOD UREA NITROGEN 26 MG/DL (7-18); BUN/CREATININE RATIO 28.9 (10.0-20.0); CALCIUM 8.1 MG/DL (8.5-10.1); CHLORIDE 114 MMOL/L (99-107); GLUCOSE 121 MG/DL (70-104); MAGNESIUM 1.7 MG/DL (1.5-2.4); POTASSIUM 3.3 MMOL/L (3.5-5.1); SODIUM 145 MMOL/L (135-145); TOTAL CARBON DIOXIDE 21.1 MMOL/L (24-32); eCRCL 80 ML/MIN; eGFR 68 ML/MIN
[2024-10-12 07:23] LABS: PHOSPHORUS 3.3 MG/DL (2.3-4.5)
[2024-10-12] MEDS ORDERED: potassium Cl 20 mEq SR tablet PO PRN (07:30)
[2024-10-12 07:46] LABS: HEMOGLOBIN 6.6 g/dl (12.0-16.0)
[2024-10-12 08:03] LABS: EOSINOPHILS # (AUTO) 0.2 X10'3 (0-0.9); EOSINOPHILS % (AUTO) 3.8 % (0-6); LYMPHOCYTES # (AUTO) 0.7 X10'3 (1.1-4.8); LYMPHOCYTES % (AUTO) 13.5 % (21-51); MONOCYTES # (AUTO) 0.4 X10'3 (0-0.9); MONOCYTES % (AUTO) 7.3 % (2-12); NEUTROPHILS # (AUTO) 3.6 X10'3 (1.8-7.7); NEUTROPHILS % (AUTO) 74.4 % (42-75)
[2024-10-12 08:05] LABS: HEMATOCRIT 21.6 % (35.0-45.0)
[2024-10-12 09:04] LABS: PLATELET ESTIMATE DECREASED; TOTAL CELLS COUNTED 100
[2024-10-12 09:05] LABS: ANISOCYTOSIS 3+; BURR CELLS FEW; SCHISTOCYTES 1+
[2024-10-12 09:06] LABS: TARGET CELLS 1+; TEAR DROP CELLS FEW
[2024-10-12] MEDS: MULTIVIT-MIN/FERROUS GLUCONATE 9 MG/15 ML LIQUID PO SCH (09:11)
[2024-10-12] MEDS: calcium acetate 667mg (PhosLO) capsule PO SCH (09:12)
[2024-10-12] MEDS: potassium Cl 20 mEq SR tablet PO PRN (09:12)
[2024-10-12] MEDS: thiamine 100mg tablet PO SCH (09:13)
[2024-10-12] MEDS: quetiapine 100mg tablet PO SCH (09:13)
[2024-10-12] MEDS: mag hydrox/Alum hydrox/simeth 30ml oral suspension PO PRN (14:39)
[2024-10-12] MEDS: lactose-reduced food (Ensure Enlive) - 237ml bottle PO SCH (17:58)
[2024-10-13] VITALS (12 sets, daily range): BP systolic 122–139; BP diastolic 45–85; PULSE 75–85; RESP 15–20; TEMP 98.1–100.3; O2SAT 96–100
[2024-10-13] MEDS: acetaminophen 325mg tablet PO PRN (01:58)
[2024-10-13 06:11] LABS: EOSINOPHILS # (AUTO) 0.1 X10'3 (0-0.9); HEMOGLOBIN 7.1 g/dl (12.0-16.0); LYMPHOCYTES # (AUTO) 0.7 X10'3 (1.1-4.8); MONOCYTES # (AUTO) 0.5 X10'3 (0-0.9)
[2024-10-13 06:13] LABS: BASOPHILS % (AUTO) 0.5 % (0-1); EOSINOPHILS % (AUTO) 2.8 % (0-6); LYMPHOCYTES % (AUTO) 15.5 % (21-51); MEAN CORPUSCULAR HEMOGLOBIN 30.5 PG (27.0-31.0); MEAN CORPUSCULAR HGB CONC 32.2 g/dL (33.0-36.5); MEAN PLATELET VOLUME 9.2 FL (7.4-10.4); MONOCYTES % (AUTO) 10.1 % (2-12); NEUTROPHILS # (AUTO) 3.4 X10'3 (1.8-7.7); NEUTROPHILS % (AUTO) 71.1 % (42-75); PLATELET COUNT 55 X10'3 (140-440); RED BLOOD COUNT 2.31 X10'6 (4.20-5.60); RED CELL DISTRIBUTION WIDTH 37.4 % (11.5-14.5); WHITE BLOOD COUNT 4.7 X10'3 (4.5-11.0)
[2024-10-13 06:32] LABS: ALANINE AMINOTRANSFERASE 55 U/L (12-78); ALBUMIN 1.5 G/DL (3.4-5.0); ALKALINE PHOSPHATASE 222 IU/L (46-116); ANION GAP 7 (8-16); ASPARTATE AMINO TRANSFERASE 49 U/L (10-37); BILIRUBIN,TOTAL 8.7 MG/DL (0.1-1.0); BLOOD UREA NITROGEN 21 MG/DL (7-18); BUN/CREATININE RATIO 27.3 (10.0-20.0); CALCIUM 8.1 MG/DL (8.5-10.1); CHLORIDE 112 MMOL/L (99-107); CREATININE 0.77 MG/DL (0.40-0.90); GLUCOSE 104 MG/DL (70-104); POTASSIUM 3.8 MMOL/L (3.5-5.1); SODIUM 143 MMOL/L (135-145); TOTAL CARBON DIOXIDE 23.7 MMOL/L (24-32); eCRCL 94 ML/MIN; eGFR 81 ML/MIN
[2024-10-13 06:36] LABS: ALBUMIN/GLOBULIN RATIO 0.4 (1.1-1.5); TOTAL PROTEIN 5.1 G/DL (6.4-8.2)
[2024-10-13 06:55] LABS: MAGNESIUM 1.4 MG/DL (1.5-2.4)
[2024-10-13 06:56] LABS: PHOSPHORUS 3.1 MG/DL (2.3-4.5)
[2024-10-13 08:31] LABS: PLATELET ESTIMATE DECREASED
[2024-10-13 08:32] LABS: ANISOCYTOSIS 3+; HYPOCHROMASIA 1+; TARGET CELLS FEW
[2024-10-13 08:33] LABS: BURR CELLS FEW; SCHISTOCYTES FEW
[2024-10-13 08:34] LABS: LARGE PLATELETS FEW
[2024-10-13] MEDS: acetaminophen 325mg tablet PO ONE (11:09)
[2024-10-13 23:33] LABS: HEMATOCRIT 25.6 % (35.0-45.0); HEMOGLOBIN 8.4 g/dl (12.0-16.0); MEAN CORPUSCULAR HEMOGLOBIN 30.6 PG (27.0-31.0); MEAN CORPUSCULAR HGB CONC 32.6 g/dL (33.0-36.5); MEAN CORPUSCULAR VOLUME 93.8 FL (78-98); MEAN PLATELET VOLUME 8.8 FL (7.4-10.4); PLATELET COUNT 55 X10'3 (140-440); RED BLOOD COUNT 2.73 X10'6 (4.20-5.60); RED CELL DISTRIBUTION WIDTH 33.9 % (11.5-14.5); WHITE BLOOD COUNT 4.3 X10'3 (4.5-11.0)
[2024-10-14] VITALS (7 sets, daily range): BP systolic 125–146; BP diastolic 73–90; PULSE 79–113; RESP 16–21; TEMP 97.2–99.5; O2SAT 96–100
[2024-10-14 07:45] LABS: BASOPHILS % (AUTO) 0.5 % (0-1); EOSINOPHILS # (AUTO) 0.1 X10'3 (0-0.9); EOSINOPHILS % (AUTO) 2.7 % (0-6); HEMATOCRIT 26.2 % (35.0-45.0); HEMOGLOBIN 8.7 g/dl (12.0-16.0); LYMPHOCYTES # (AUTO) 0.7 X10'3 (1.1-4.8); LYMPHOCYTES % (AUTO) 16.4 % (21-51); MEAN CORPUSCULAR HEMOGLOBIN 31.1 PG (27.0-31.0); MEAN CORPUSCULAR HGB CONC 33.1 g/dL (33.0-36.5); MEAN CORPUSCULAR VOLUME 93.9 FL (78-98); MEAN PLATELET VOLUME 8.7 FL (7.4-10.4); MONOCYTES # (AUTO) 0.5 X10'3 (0-0.9); MONOCYTES % (AUTO) 12.2 % (2-12); NEUTROPHILS # (AUTO) 2.8 X10'3 (1.8-7.7); NEUTROPHILS % (AUTO) 68.2 % (42-75); PLATELET COUNT 55 X10'3 (140-440); RED CELL DISTRIBUTION WIDTH 34.6 % (11.5-14.5); WHITE BLOOD COUNT 4.2 X10'3 (4.5-11.0)
[2024-10-14 08:00] LABS: ALANINE AMINOTRANSFERASE 57 U/L (12-78); ALBUMIN 1.7 G/DL (3.4-5.0); ALKALINE PHOSPHATASE 241 IU/L (46-116); ANION GAP 10 (8-16); ASPARTATE AMINO TRANSFERASE 50 U/L (10-37); BILIRUBIN,TOTAL 9.8 MG/DL (0.1-1.0); BLOOD UREA NITROGEN 19 MG/DL (7-18); BUN/CREATININE RATIO 29.2 (10.0-20.0); CHLORIDE 110 MMOL/L (99-107); CREATININE 0.65 MG/DL (0.40-0.90); GLUCOSE 116 MG/DL (70-104); POTASSIUM 3.6 MMOL/L (3.5-5.1); SODIUM 143 MMOL/L (135-145); TOTAL CARBON DIOXIDE 23.1 MMOL/L (24-32); eCRCL 111 ML/MIN; eGFR > 90 ML/MIN
[2024-10-14 08:07] LABS: ALBUMIN/GLOBULIN RATIO 0.5 (1.1-1.5); TOTAL PROTEIN 5.2 G/DL (6.4-8.2)
[2024-10-15] VITALS (9 sets, daily range): BP systolic 108–144; BP diastolic 70–94; PULSE 72–105; RESP 14–20; TEMP 97.4–99.3; O2SAT 97–100
[2024-10-15 06:25] LABS: HEMATOCRIT 26.8 % (35.0-45.0); HEMOGLOBIN 8.8 g/dl (12.0-16.0); MEAN CORPUSCULAR HEMOGLOBIN 31.8 PG (27.0-31.0); MEAN CORPUSCULAR VOLUME 96.5 FL (78-98); MEAN PLATELET VOLUME 8.8 FL (7.4-10.4); PLATELET COUNT 58 X10'3 (140-440); RED BLOOD COUNT 2.78 X10'6 (4.20-5.60); RED CELL DISTRIBUTION WIDTH 34.8 % (11.5-14.5); WHITE BLOOD COUNT 3.7 X10'3 (4.5-11.0)
[2024-10-15 06:30] LABS: ALANINE AMINOTRANSFERASE 50 U/L (12-78); ALBUMIN 1.7 G/DL (3.4-5.0); ALBUMIN/GLOBULIN RATIO 0.4 (1.1-1.5); ALKALINE PHOSPHATASE 246 IU/L (46-116); ANION GAP 8 (8-16); ASPARTATE AMINO TRANSFERASE 50 U/L (10-37); BILIRUBIN,TOTAL 9.2 MG/DL (0.1-1.0); BLOOD UREA NITROGEN 17 MG/DL (7-18); CALCIUM 8.1 MG/DL (8.5-10.1); CHLORIDE 110 MMOL/L (99-107); CREATININE 0.68 MG/DL (0.40-0.90); GLUCOSE 113 MG/DL (70-104); POTASSIUM 3.6 MMOL/L (3.5-5.1); SODIUM 142 MMOL/L (135-145); TOTAL CARBON DIOXIDE 23.6 MMOL/L (24-32); TOTAL PROTEIN 5.8 G/DL (6.4-8.2); eCRCL 107 ML/MIN; eGFR > 90 ML/MIN
[2024-10-15 08:50] LABS: TOTAL CELLS COUNTED 100
[2024-10-15 08:52] LABS: ANISOCYTOSIS 3+; PLATELET ESTIMATE DECREASED
[2024-10-15 08:53] LABS: HYPOCHROMASIA 1+; SCHISTOCYTES FEW; TARGET CELLS FEW
[2024-10-15] MEDS: LIDOcaine 2% Viscous 15ml cup MM PRN (15:46)
[2024-10-16] VITALS (8 sets, daily range): BP systolic 134–147; BP diastolic 76–86; PULSE 70–79; RESP 15–20; TEMP 97.3–98.7; O2SAT 77–100
[2024-10-17] VITALS (8 sets, daily range): BP systolic 112–153; BP diastolic 74–81; PULSE 71–120; RESP 16–24; TEMP 97.1–99.1; O2SAT 97–100
[2024-10-17 11:15] LABS: LYMPHOCYTES # (AUTO) 0.8 X10'3 (1.1-4.8); MONOCYTES # (AUTO) 0.7 X10'3 (0-0.9); RED BLOOD COUNT 2.66 X10'6 (4.20-5.60)
[2024-10-17 11:16] LABS: EOSINOPHILS # (AUTO) 0.1 X10'3 (0-0.9); EOSINOPHILS % (AUTO) 1.9 % (0-6); HEMATOCRIT 25.4 % (35.0-45.0); HEMOGLOBIN 8.6 g/dl (12.0-16.0); LYMPHOCYTES % (AUTO) 22.6 % (21-51); MEAN CORPUSCULAR HEMOGLOBIN 32.4 PG (27.0-31.0); MEAN CORPUSCULAR HGB CONC 33.9 g/dL (33.0-36.5); MEAN CORPUSCULAR VOLUME 95.4 FL (78-98); MEAN PLATELET VOLUME 8.5 FL (7.4-10.4); MONOCYTES % (AUTO) 21.1 % (2-12); NEUTROPHILS # (AUTO) 1.8 X10'3 (1.8-7.7); NEUTROPHILS % (AUTO) 53.4 % (42-75); PLATELET COUNT 77 X10'3 (140-440); RED CELL DISTRIBUTION WIDTH 32.1 % (11.5-14.5); WHITE BLOOD COUNT 3.3 X10'3 (4.5-11.0)
[2024-10-17 11:22] LABS: ALANINE AMINOTRANSFERASE 51 U/L (12-78); ALBUMIN 1.7 G/DL (3.4-5.0); ALKALINE PHOSPHATASE 229 IU/L (46-116); ANION GAP 8 (8-16); ASPARTATE AMINO TRANSFERASE 50 U/L (10-37); BILIRUBIN,TOTAL 6.5 MG/DL (0.1-1.0); BLOOD UREA NITROGEN 12 MG/DL (7-18); BUN/CREATININE RATIO 16.4 (10.0-20.0); CALCIUM 8.1 MG/DL (8.5-10.1); CHLORIDE 104 MMOL/L (99-107); CREATININE 0.73 MG/DL (0.40-0.90); GLUCOSE 113 MG/DL (70-104); POTASSIUM 3.5 MMOL/L (3.5-5.1); SODIUM 136 MMOL/L (135-145); TOTAL CARBON DIOXIDE 23.8 MMOL/L (24-32); eCRCL 99 ML/MIN; eGFR 87 ML/MIN
[2024-10-17 11:42] LABS: ALBUMIN/GLOBULIN RATIO 0.4 (1.1-1.5); PHOSPHORUS 3.9 MG/DL (2.3-4.5); TOTAL PROTEIN 5.7 G/DL (6.4-8.2)
[2024-10-17 12:07] LABS: PLATELET ESTIMATE DECREASED
[2024-10-17 12:08] LABS: ANISOCYTOSIS 3+; POLYCHROMASIA 1+; TARGET CELLS FEW
[2024-10-17 12:09] LABS: TEAR DROP CELLS FEW
[2024-10-18] VITALS (11 sets, daily range): BP systolic 104–131; BP diastolic 76–95; PULSE 117–140; RESP 16–21; TEMP 97.5–98.6; O2SAT 98–99
[2024-10-18] MEDS: metoprolol tartrate 1mg/ml inj IV ONE ×3 (03:03→07:38)
[2024-10-18 08:42] LABS: BASOPHILS # (AUTO) 0.1 X10'3 (0-0.2); BASOPHILS % (AUTO) 1.5 % (0-1); EOSINOPHILS # (AUTO) 0.1 X10'3 (0-0.9); EOSINOPHILS % (AUTO) 1.8 % (0-6); HEMATOCRIT 29.2 % (35.0-45.0); LYMPHOCYTES # (AUTO) 1.2 X10'3 (1.1-4.8); LYMPHOCYTES % (AUTO) 26.7 % (21-51); MEAN CORPUSCULAR HEMOGLOBIN 32.7 PG (27.0-31.0); MEAN CORPUSCULAR HGB CONC 34.1 g/dL (33.0-36.5); MEAN CORPUSCULAR VOLUME 95.9 FL (78-98); MEAN PLATELET VOLUME 8.7 FL (7.4-10.4); MONOCYTES # (AUTO) 0.9 X10'3 (0-0.9); MONOCYTES % (AUTO) 21.3 % (2-12); NEUTROPHILS # (AUTO) 2.1 X10'3 (1.8-7.7); NEUTROPHILS % (AUTO) 48.7 % (42-75); PLATELET COUNT 100 X10'3 (140-440); RED BLOOD COUNT 3.05 X10'6 (4.20-5.60); RED CELL DISTRIBUTION WIDTH 31.2 % (11.5-14.5); WHITE BLOOD COUNT 4.3 X10'3 (4.5-11.0)
[2024-10-18 08:54] LABS: ALANINE AMINOTRANSFERASE 51 U/L (12-78); ALBUMIN 1.9 G/DL (3.4-5.0); ALKALINE PHOSPHATASE 224 IU/L (46-116); ANION GAP 8 (8-16); ASPARTATE AMINO TRANSFERASE 49 U/L (10-37); BILIRUBIN,TOTAL 6.4 MG/DL (0.1-1.0); BLOOD UREA NITROGEN 8 MG/DL (7-18); BUN/CREATININE RATIO 12.1 (10.0-20.0); CALCIUM 8.2 MG/DL (8.5-10.1); CHLORIDE 103 MMOL/L (99-107); CREATININE 0.66 MG/DL (0.40-0.90); GLUCOSE 100 MG/DL (70-104); POTASSIUM 3.5 MMOL/L (3.5-5.1); SODIUM 136 MMOL/L (135-145); TOTAL CARBON DIOXIDE 24.8 MMOL/L (24-32); eCRCL 110 ML/MIN; eGFR > 90 ML/MIN
[2024-10-18 08:56] LABS: ALBUMIN/GLOBULIN RATIO 0.5 (1.1-1.5); TOTAL PROTEIN 6.1 G/DL (6.4-8.2)
[2024-10-18] MEDS: metoprolol tartrate 1mg/ml inj IV SCH (10:04)
[2024-10-18] MEDS: metoprolol tartrate 1mg/ml inj IV PRN (23:36)
[2024-10-19] VITALS (11 sets, daily range): BP systolic 105–133; BP diastolic 67–96; PULSE 75–152; RESP 13–23; TEMP 96.9–98.6; O2SAT 95–100
[2024-10-19 06:13] LABS: EOSINOPHILS # (AUTO) 0.1 X10'3 (0-0.9); EOSINOPHILS % (AUTO) 1.9 % (0-6); HEMATOCRIT 34.5 % (35.0-45.0); HEMOGLOBIN 11.3 g/dl (12.0-16.0); LYMPHOCYTES # (AUTO) 1.3 X10'3 (1.1-4.8); LYMPHOCYTES % (AUTO) 29.5 % (21-51); MEAN CORPUSCULAR HEMOGLOBIN 32.2 PG (27.0-31.0); MEAN CORPUSCULAR HGB CONC 32.6 g/dL (33.0-36.5); MEAN CORPUSCULAR VOLUME 98.7 FL (78-98); MEAN PLATELET VOLUME 8.6 FL (7.4-10.4); MONOCYTES # (AUTO) 0.9 X10'3 (0-0.9); MONOCYTES % (AUTO) 19.6 % (2-12); NEUTROPHILS # (AUTO) 2.2 X10'3 (1.8-7.7); PLATELET COUNT 121 X10'3 (140-440); RED CELL DISTRIBUTION WIDTH 30.2 % (11.5-14.5); WHITE BLOOD COUNT 4.6 X10'3 (4.5-11.0)
[2024-10-19 06:33] LABS: IRON 60 UG/DL (49-151)
[2024-10-19 06:43] LABS: ALANINE AMINOTRANSFERASE 49 U/L (12-78); ALBUMIN 2.1 G/DL (3.4-5.0); ALKALINE PHOSPHATASE 233 IU/L (46-116); ANION GAP 9 (8-16); ASPARTATE AMINO TRANSFERASE 55 U/L (10-37); BILIRUBIN,TOTAL 6.1 MG/DL (0.1-1.0); BLOOD UREA NITROGEN 8 MG/DL (7-18); BUN/CREATININE RATIO 11.8 (10.0-20.0); CALCIUM 8.8 MG/DL (8.5-10.1); CHLORIDE 103 MMOL/L (99-107); CREATININE 0.68 MG/DL (0.40-0.90); FERRITIN 400 NG/ML (8-252); FREE T4 (FREE THYROXINE) 1.24 NG/DL (0.73-1.40); GLUCOSE 103 MG/DL (70-104); SODIUM 137 MMOL/L (135-145); THYROID STIMULATING HORMONE 1.32 ulU/ml (0.34-4.50); TOTAL CARBON DIOXIDE 24.8 MMOL/L (24-32); eCRCL 107 ML/MIN; eGFR > 90 ML/MIN
[2024-10-19 06:46] LABS: ALBUMIN/GLOBULIN RATIO 0.5 (1.1-1.5); POTASSIUM 3.6 MMOL/L (3.5-5.1); TOTAL PROTEIN 6.7 G/DL (6.4-8.2)
[2024-10-19 07:06] LABS: % IRON SATURATION 23 % (11-46); TOTAL IRON BINDING CAPACITY 258 UG/DL (259-388)
[2024-10-19] MEDS: diltiazem-NS 100mg/100ml 100 ML IV SCH ×3 (11:03→19:24)
[2024-10-19] MEDS: metoprolol tartrate 1mg/ml inj IV ONE ×2 (13:23→17:52)
[2024-10-19] MEDS: normal saline 1000ml 1,000 ML IV SCH (13:28)
[2024-10-19] MEDS: normal saline 500ml IV soln 500 ML IV ONE (13:28)
[2024-10-19 14:19] LABS: MAGNESIUM 1.3 MG/DL (1.5-2.4)
[2024-10-19] MEDS: normal saline 500ml IV soln 500 ML IV STA (15:21)
[2024-10-19] MEDS: metoprolol tartrate 1mg/ml inj IV PRN (16:57)
[2024-10-20] VITALS (12 sets, daily range): BP systolic 97–126; BP diastolic 60–85; PULSE 79–112; RESP 12–19; TEMP 96.8–98.7; O2SAT 96–100
[2024-10-20 06:53] LABS: BASOPHILS % (AUTO) 0.7 % (0-1); EOSINOPHILS # (AUTO) 0.1 X10'3 (0-0.9); EOSINOPHILS % (AUTO) 2.4 % (0-6); HEMATOCRIT 28.9 % (35.0-45.0); HEMOGLOBIN 9.5 g/dl (12.0-16.0); LYMPHOCYTES # (AUTO) 0.9 X10'3 (1.1-4.8); LYMPHOCYTES % (AUTO) 26.7 % (21-51); MEAN CORPUSCULAR HEMOGLOBIN 32.5 PG (27.0-31.0); MEAN CORPUSCULAR VOLUME 98.5 FL (78-98); MEAN PLATELET VOLUME 8.4 FL (7.4-10.4); MONOCYTES # (AUTO) 0.5 X10'3 (0-0.9); MONOCYTES % (AUTO) 15.8 % (2-12); NEUTROPHILS # (AUTO) 1.8 X10'3 (1.8-7.7); NEUTROPHILS % (AUTO) 54.4 % (42-75); PLATELET COUNT 109 X10'3 (140-440); RED BLOOD COUNT 2.94 X10'6 (4.20-5.60); RED CELL DISTRIBUTION WIDTH 28.7 % (11.5-14.5); WHITE BLOOD COUNT 3.2 X10'3 (4.5-11.0)
[2024-10-20 07:14] LABS: ALANINE AMINOTRANSFERASE 36 U/L (12-78); ALBUMIN 1.9 G/DL (3.4-5.0); ALKALINE PHOSPHATASE 188 IU/L (46-116); ANION GAP 8 (8-16); ASPARTATE AMINO TRANSFERASE 46 U/L (10-37); BILIRUBIN,TOTAL 4.7 MG/DL (0.1-1.0); BLOOD UREA NITROGEN 5 MG/DL (7-18); BUN/CREATININE RATIO 7.7 (10.0-20.0); CALCIUM 8.2 MG/DL (8.5-10.1); CHLORIDE 107 MMOL/L (99-107); CREATININE 0.65 MG/DL (0.40-0.90); GLUCOSE 98 MG/DL (70-104); SODIUM 138 MMOL/L (135-145); eCRCL 111 ML/MIN; eGFR > 90 ML/MIN
[2024-10-20 07:16] LABS: ALBUMIN/GLOBULIN RATIO 0.5 (1.1-1.5); POTASSIUM 3.6 MMOL/L (3.5-5.1); TOTAL PROTEIN 5.9 G/DL (6.4-8.2)
[2024-10-20] MEDS: diltiazem SR 60mg capsule (twice daily) PO SCH (08:26)
[2024-10-21] VITALS (8 sets, daily range): BP systolic 102–134; BP diastolic 68–87; PULSE 76–112; RESP 13–23; TEMP 97.6–98.7; O2SAT 95–100
[2024-10-21 06:47] LABS: EOSINOPHILS # (AUTO) 0.1 X10'3 (0-0.9); EOSINOPHILS % (AUTO) 1.6 % (0-6); HEMATOCRIT 29.2 % (35.0-45.0); HEMOGLOBIN 9.7 g/dl (12.0-16.0); LYMPHOCYTES # (AUTO) 0.8 X10'3 (1.1-4.8); LYMPHOCYTES % (AUTO) 24.7 % (21-51); MEAN CORPUSCULAR HEMOGLOBIN 32.9 PG (27.0-31.0); MEAN CORPUSCULAR HGB CONC 33.3 g/dL (33.0-36.5); MEAN CORPUSCULAR VOLUME 98.6 FL (78-98); MEAN PLATELET VOLUME 8.1 FL (7.4-10.4); MONOCYTES # (AUTO) 0.5 X10'3 (0-0.9); MONOCYTES % (AUTO) 14.5 % (2-12); NEUTROPHILS % (AUTO) 58.2 % (42-75); PLATELET COUNT 101 X10'3 (140-440); RED BLOOD COUNT 2.96 X10'6 (4.20-5.60); RED CELL DISTRIBUTION WIDTH 27.8 % (11.5-14.5); WHITE BLOOD COUNT 3.4 X10'3 (4.5-11.0)
[2024-10-21 07:12] LABS: ALANINE AMINOTRANSFERASE 34 U/L (12-78); ALBUMIN 1.9 G/DL (3.4-5.0); ALKALINE PHOSPHATASE 195 IU/L (46-116); ANION GAP 8 (8-16); ASPARTATE AMINO TRANSFERASE 38 U/L (10-37); BILIRUBIN,TOTAL 4.6 MG/DL (0.1-1.0); BLOOD UREA NITROGEN 4 MG/DL (7-18); BUN/CREATININE RATIO 6.5 (10.0-20.0); CALCIUM 8.1 MG/DL (8.5-10.1); CHLORIDE 109 MMOL/L (99-107); CREATININE 0.62 MG/DL (0.40-0.90); GLUCOSE 91 MG/DL (70-104); POTASSIUM 3.3 MMOL/L (3.5-5.1); SODIUM 140 MMOL/L (135-145); TOTAL CARBON DIOXIDE 23.4 MMOL/L (24-32); eCRCL 117 ML/MIN; eGFR > 90 ML/MIN
[2024-10-21 07:23] LABS: ALBUMIN/GLOBULIN RATIO 0.5 (1.1-1.5); TOTAL PROTEIN 5.9 G/DL (6.4-8.2)
[2024-10-21] MEDS ORDERED: potassium Cl 20 mEq SR tablet PO PRN (08:40)
[2024-10-21] MEDS: diltiazem 5mg/ml 5ml inj. IV ONE (08:50)
[2024-10-21] MEDS: potassium Cl 20 mEq SR tablet PO PRN (08:58)
[2024-10-21] MEDS: metoprolol tartrate 1mg/ml inj IV SCH (12:54)
[2024-10-21] MEDS: diltiazem SR 60mg capsule (twice daily) PO SCH (20:21)
[2024-10-22] VITALS (8 sets, daily range): BP systolic 97–146; BP diastolic 71–103; PULSE 78–119; RESP 16–20; TEMP 97.4–99.3; O2SAT 93–100
[2024-10-22 06:40] LABS: BASOPHILS % (AUTO) 0.6 % (0-1); EOSINOPHILS # (AUTO) 0.1 X10'3 (0-0.9); EOSINOPHILS % (AUTO) 1.5 % (0-6); HEMATOCRIT 32.7 % (35.0-45.0); HEMOGLOBIN 10.8 g/dl (12.0-16.0); LYMPHOCYTES # (AUTO) 0.9 X10'3 (1.1-4.8); LYMPHOCYTES % (AUTO) 22.8 % (21-51); MEAN CORPUSCULAR HEMOGLOBIN 32.5 PG (27.0-31.0); MEAN CORPUSCULAR HGB CONC 33.1 g/dL (33.0-36.5); MEAN CORPUSCULAR VOLUME 98.3 FL (78-98); MEAN PLATELET VOLUME 7.9 FL (7.4-10.4); MONOCYTES # (AUTO) 0.6 X10'3 (0-0.9); MONOCYTES % (AUTO) 15.4 % (2-12); NEUTROPHILS # (AUTO) 2.4 X10'3 (1.8-7.7); NEUTROPHILS % (AUTO) 59.7 % (42-75); PLATELET COUNT 110 X10'3 (140-440); RED BLOOD COUNT 3.33 X10'6 (4.20-5.60); RED CELL DISTRIBUTION WIDTH 27.2 % (11.5-14.5); WHITE BLOOD COUNT 3.9 X10'3 (4.5-11.0)
[2024-10-22 06:44] LABS: ALANINE AMINOTRANSFERASE 38 U/L (12-78); ALBUMIN 2.1 G/DL (3.4-5.0); ALKALINE PHOSPHATASE 215 IU/L (46-116); ANION GAP 8 (8-16); ASPARTATE AMINO TRANSFERASE 40 U/L (10-37); BILIRUBIN,TOTAL 4.7 MG/DL (0.1-1.0); BLOOD UREA NITROGEN 3 MG/DL (7-18); BUN/CREATININE RATIO 4.2 (10.0-20.0); CALCIUM 8.4 MG/DL (8.5-10.1); CHLORIDE 107 MMOL/L (99-107); CREATININE 0.72 MG/DL (0.40-0.90); GLUCOSE 109 MG/DL (70-104); POTASSIUM 3.5 MMOL/L (3.5-5.1); SODIUM 138 MMOL/L (135-145); TOTAL CARBON DIOXIDE 23.1 MMOL/L (24-32); eCRCL 101 ML/MIN; eGFR 88 ML/MIN
[2024-10-22 06:46] LABS: ALBUMIN/GLOBULIN RATIO 0.5 (1.1-1.5); TOTAL PROTEIN 6.3 G/DL (6.4-8.2)
[2024-10-22] MEDS: dronabinol 2.5mg capsule PO ONE (10:28)
[2024-10-22] MEDS: dronabinol 2.5mg capsule PO SCH (20:00)
[2024-10-23] VITALS (8 sets, daily range): BP systolic 94–118; BP diastolic 62–79; PULSE 88–120; RESP 14–25; TEMP 97.5–98.3; O2SAT 91–100
[2024-10-23] MEDS: magnesium Cl slow-release 64mg tablet PO PRN (03:16)
[2024-10-23 06:56] LABS: BASOPHILS % (AUTO) 0.7 % (0-1); EOSINOPHILS # (AUTO) 0.1 X10'3 (0-0.9); EOSINOPHILS % (AUTO) 1.2 % (0-6); HEMATOCRIT 34.1 % (35.0-45.0); HEMOGLOBIN 11.1 g/dl (12.0-16.0); LYMPHOCYTES # (AUTO) 1.8 X10'3 (1.1-4.8); LYMPHOCYTES % (AUTO) 27.5 % (21-51); MEAN CORPUSCULAR HGB CONC 32.5 g/dL (33.0-36.5); MEAN CORPUSCULAR VOLUME 98.5 FL (78-98); MONOCYTES # (AUTO) 0.7 X10'3 (0-0.9); MONOCYTES % (AUTO) 11.3 % (2-12); NEUTROPHILS # (AUTO) 3.9 X10'3 (1.8-7.7); NEUTROPHILS % (AUTO) 59.3 % (42-75); PLATELET COUNT 138 X10'3 (140-440); RED BLOOD COUNT 3.46 X10'6 (4.20-5.60); RED CELL DISTRIBUTION WIDTH 26.9 % (11.5-14.5); WHITE BLOOD COUNT 6.6 X10'3 (4.5-11.0)
[2024-10-23 07:11] LABS: ALANINE AMINOTRANSFERASE 34 U/L (12-78); ALBUMIN 2.3 G/DL (3.4-5.0); ALKALINE PHOSPHATASE 214 IU/L (46-116); ANION GAP 11 (8-16); ASPARTATE AMINO TRANSFERASE 42 U/L (10-37); BILIRUBIN,TOTAL 4.4 MG/DL (0.1-1.0); BLOOD UREA NITROGEN 4 MG/DL (7-18); CALCIUM 8.8 MG/DL (8.5-10.1); CHLORIDE 106 MMOL/L (99-107); GLUCOSE 101 MG/DL (70-104); POTASSIUM 3.9 MMOL/L (3.5-5.1); SODIUM 140 MMOL/L (135-145); TOTAL CARBON DIOXIDE 22.8 MMOL/L (24-32); eCRCL 91 ML/MIN; eGFR 78 ML/MIN
[2024-10-23 07:13] LABS: ALBUMIN/GLOBULIN RATIO 0.5 (1.1-1.5); TOTAL PROTEIN 6.7 G/DL (6.4-8.2)
[2024-10-23 07:54] LABS: ANISOCYTOSIS 3+; PLATELET ESTIMATE DECREASED
[2024-10-23 07:55] LABS: ELLIPTOCYTES FEW
[2024-10-23] MEDS: normal saline 500ml IV soln 500 ML IV ONE ×2 (09:58→12:44)
[2024-10-23] MEDS: benzonatate 100mg capsule PO SCH (19:52)
[2024-10-24] VITALS (9 sets, daily range): BP systolic 101–127; BP diastolic 64–79; PULSE 100–110; RESP 16–26; TEMP 97.1–99.2; O2SAT 95–100
[2024-10-24 06:17] LABS: BASOPHILS % (AUTO) 0.7 % (0-1); EOSINOPHILS # (AUTO) 0.1 X10'3 (0-0.9); HEMATOCRIT 31.9 % (35.0-45.0); HEMOGLOBIN 10.7 g/dl (12.0-16.0); LYMPHOCYTES # (AUTO) 0.9 X10'3 (1.1-4.8); MEAN CORPUSCULAR HEMOGLOBIN 32.9 PG (27.0-31.0); MEAN CORPUSCULAR HGB CONC 33.4 g/dL (33.0-36.5); MEAN CORPUSCULAR VOLUME 98.5 FL (78-98); MEAN PLATELET VOLUME 8.3 FL (7.4-10.4); MONOCYTES # (AUTO) 0.6 X10'3 (0-0.9); MONOCYTES % (AUTO) 11.5 % (2-12); NEUTROPHILS # (AUTO) 3.3 X10'3 (1.8-7.7); NEUTROPHILS % (AUTO) 66.8 % (42-75); PLATELET COUNT 115 X10'3 (140-440); RED BLOOD COUNT 3.24 X10'6 (4.20-5.60); RED CELL DISTRIBUTION WIDTH 26.2 % (11.5-14.5); WHITE BLOOD COUNT 4.9 X10'3 (4.5-11.0)
[2024-10-24 06:21] LABS: ALANINE AMINOTRANSFERASE 28 U/L (12-78); ALKALINE PHOSPHATASE 190 IU/L (46-116); ANION GAP 9 (8-16); ASPARTATE AMINO TRANSFERASE 41 U/L (10-37); BILIRUBIN,TOTAL 3.9 MG/DL (0.1-1.0); BLOOD UREA NITROGEN 4 MG/DL (7-18); BUN/CREATININE RATIO 6.1 (10.0-20.0); CALCIUM 8.2 MG/DL (8.5-10.1); CHLORIDE 107 MMOL/L (99-107); CREATININE 0.66 MG/DL (0.40-0.90); GLUCOSE 105 MG/DL (70-104); SODIUM 138 MMOL/L (135-145); TOTAL CARBON DIOXIDE 21.9 MMOL/L (24-32); eCRCL 110 ML/MIN; eGFR > 90 ML/MIN
[2024-10-24 06:23] LABS: ALBUMIN/GLOBULIN RATIO 0.5 (1.1-1.5); POTASSIUM 3.8 MMOL/L (3.5-5.1)
[2024-10-25] VITALS (7 sets, daily range): BP systolic 109–132; BP diastolic 65–80; PULSE 95–109; RESP 14–20; TEMP 97.8–99.3; O2SAT 96–100
[2024-10-25 05:59] LABS: BASOPHILS % (AUTO) 1.1 % (0-1); EOSINOPHILS # (AUTO) 0.1 X10'3 (0-0.9); EOSINOPHILS % (AUTO) 1.5 % (0-6); HEMATOCRIT 29.5 % (35.0-45.0); HEMOGLOBIN 9.8 g/dl (12.0-16.0); LYMPHOCYTES # (AUTO) 0.9 X10'3 (1.1-4.8); LYMPHOCYTES % (AUTO) 19.9 % (21-51); MEAN CORPUSCULAR HEMOGLOBIN 32.4 PG (27.0-31.0); MEAN CORPUSCULAR HGB CONC 33.2 g/dL (33.0-36.5); MEAN CORPUSCULAR VOLUME 97.8 FL (78-98); MEAN PLATELET VOLUME 8.2 FL (7.4-10.4); MONOCYTES # (AUTO) 0.5 X10'3 (0-0.9); MONOCYTES % (AUTO) 12.2 % (2-12); NEUTROPHILS # (AUTO) 2.9 X10'3 (1.8-7.7); NEUTROPHILS % (AUTO) 65.3 % (42-75); PLATELET COUNT 98 X10'3 (140-440); RED BLOOD COUNT 3.01 X10'6 (4.20-5.60); RED CELL DISTRIBUTION WIDTH 25.3 % (11.5-14.5); WHITE BLOOD COUNT 4.5 X10'3 (4.5-11.0)
[2024-10-25 06:17] LABS: ANISOCYTOSIS 3+; PLATELET ESTIMATE DECREASED
[2024-10-25 06:22] LABS: ALANINE AMINOTRANSFERASE 24 U/L (12-78); ALKALINE PHOSPHATASE 187 IU/L (46-116); ANION GAP 11 (8-16); ASPARTATE AMINO TRANSFERASE 38 U/L (10-37); BILIRUBIN,TOTAL 3.6 MG/DL (0.1-1.0); BLOOD UREA NITROGEN 5 MG/DL (7-18); BUN/CREATININE RATIO 8.3 (10.0-20.0); CALCIUM 8.6 MG/DL (8.5-10.1); CHLORIDE 107 MMOL/L (99-107); GLUCOSE 96 MG/DL (70-104); POTASSIUM 3.7 MMOL/L (3.5-5.1); SODIUM 141 MMOL/L (135-145); TOTAL CARBON DIOXIDE 23.5 MMOL/L (24-32); eCRCL 121 ML/MIN; eGFR > 90 ML/MIN
[2024-10-25 06:23] LABS: ALBUMIN/GLOBULIN RATIO 0.5 (1.1-1.5); TOTAL PROTEIN 6.1 G/DL (6.4-8.2)
[2024-10-26 06:00] VITALS: BP 114/73; PULSE 122; RESP 22; TEMP 97.8; O2SAT 99
[2024-10-26 06:50] LABS: BASOPHILS # (AUTO) 0.1 X10'3 (0-0.2); BASOPHILS % (AUTO) 1.7 % (0-1); HEMATOCRIT 30.3 % (35.0-45.0); LYMPHOCYTES # (AUTO) 0.9 X10'3 (1.1-4.8); LYMPHOCYTES % (AUTO) 20.5 % (21-51); MEAN CORPUSCULAR HEMOGLOBIN 32.2 PG (27.0-31.0); MEAN CORPUSCULAR HGB CONC 33.1 g/dL (33.0-36.5); MEAN CORPUSCULAR VOLUME 97.5 FL (78-98); MEAN PLATELET VOLUME 8.4 FL (7.4-10.4); MONOCYTES # (AUTO) 0.6 X10'3 (0-0.9); MONOCYTES % (AUTO) 13.6 % (2-12); NEUTROPHILS # (AUTO) 2.7 X10'3 (1.8-7.7); NEUTROPHILS % (AUTO) 63.2 % (42-75); PLATELET COUNT 88 X10'3 (140-440); RED BLOOD COUNT 3.11 X10'6 (4.20-5.60); RED CELL DISTRIBUTION WIDTH 24.3 % (11.5-14.5); WHITE BLOOD COUNT 4.2 X10'3 (4.5-11.0)
[2024-10-26 07:14] LABS: ALANINE AMINOTRANSFERASE 21 U/L (12-78); ALKALINE PHOSPHATASE 178 IU/L (46-116); ANION GAP 11 (8-16); ASPARTATE AMINO TRANSFERASE 46 U/L (10-37); BILIRUBIN,TOTAL 3.5 MG/DL (0.1-1.0); BLOOD UREA NITROGEN 5 MG/DL (7-18); BUN/CREATININE RATIO 8.5 (10.0-20.0); CALCIUM 8.5 MG/DL (8.5-10.1); CHLORIDE 106 MMOL/L (99-107); CREATININE 0.59 MG/DL (0.40-0.90); GLUCOSE 91 MG/DL (70-104); SODIUM 140 MMOL/L (135-145); TOTAL CARBON DIOXIDE 23.5 MMOL/L (24-32); eCRCL 123 ML/MIN; eGFR > 90 ML/MIN
[2024-10-26 07:29] LABS: ALBUMIN/GLOBULIN RATIO 0.5 (1.1-1.5); POTASSIUM 3.6 MMOL/L (3.5-5.1); TOTAL PROTEIN 6.1 G/DL (6.4-8.2)
[2024-10-26 08:00] VITALS: RESP 18; O2SAT 95
[2024-10-26 09:36] VITALS: BP 106/61; PULSE 88; RESP 18; TEMP 97.9; O2SAT 95
[2024-10-26 11:00] VITALS: BP 93/65; PULSE 92; RESP 19; TEMP 99; O2SAT 97
== END 2024-10-26 14:25 | DRG 870 ==
LOC: ER 09:26 → UNDOADMIN 11:30 → ED HOLD 11:30 → EDBEDREQ 09-22 05:06 → EDBEDREQSVC 09-22 05:06 → CICU 2S 09-22 06:51 → ED HOLD 09-22 06:51 → PCU 3S 09-29 19:17
PROVIDERS: ADMIT Family Medicine; ATTEND Family Medicine
PROC: 0BH17EZ Insertion of Endotracheal Airway into Trachea, Via Natural or Artificial Opening (ICD-10-PCS; principal; 2024-09-20)
PROC: 5A1955Z Respiratory Ventilation, Greater than 96 Consecutive Hours (ICD-10-PCS; 2024-09-20)
PROC: 04HY32Z Insertion of Monitoring Device into Lower Artery, Percutaneous Approach (ICD-10-PCS; 2024-09-20)
PROC: 06HY33Z Insertion of Infusion Device into Lower Vein, Percutaneous Approach (ICD-10-PCS; 2024-09-20)
PROC: 30233R1 Transfusion of Nonautologous Platelets into Peripheral Vein, Percutaneous Approach (ICD-10-PCS; 2024-09-20)
PROC: 30233N1 Transfusion of Nonautologous Red Blood Cells into Peripheral Vein, Percutaneous Approach (ICD-10-PCS; 2024-09-22)
PROC: 02HV33Z Insertion of Infusion Device into Superior Vena Cava, Percutaneous Approach (ICD-10-PCS; 2024-09-23)
PROC: B548ZZA Ultrasonography of Superior Vena Cava, Guidance (ICD-10-PCS; 2024-09-23)
PROC: 6A550Z3 Pheresis of Plasma, Single (ICD-10-PCS; 2024-09-23)
PROC: [UNRECOGNIZED PROCEDURE] (2024-09-24)
PROC: 5A1D90Z Performance of Urinary Filtration, Continuous, Greater than 18 hours Per Day (ICD-10-PCS; 2024-09-25)
PROC: 05HD33Z Insertion of Infusion Device into Right Cephalic Vein, Percutaneous Approach (ICD-10-PCS; 2024-09-29)
PROC: 5A1D70Z Performance of Urinary Filtration, Intermittent, Less than 6 Hours Per Day (ICD-10-PCS; 2024-09-29)
PROC: 5A1D70Z Performance of Urinary Filtration, Intermittent, Less than 6 Hours Per Day (ICD-10-PCS; 2024-10-01)
PROC: 4A00X4Z Measurement of Central Nervous Electrical Activity, External Approach (ICD-10-PCS; 2024-10-02)
PROC: 5A1D70Z Performance of Urinary Filtration, Intermittent, Less than 6 Hours Per Day (ICD-10-PCS; 2024-10-03)
DX: A41.51 Sepsis due to Escherichia coli [E. coli] (principal); G93.41 Metabolic encephalopathy; J18.9 Pneumonia, unspecified organism; R65.21 Severe sepsis with septic shock; J96.01 Acute respiratory failure with hypoxia; N17.0 Acute kidney failure with tubular necrosis; A04.72 Enterocolitis due to Clostridium difficile, not specified as recurrent; T83.69XA Infection and inflammatory reaction due to other prosthetic device, implant and graft in genital tract, initial encounter; N39.0 Urinary tract infection, site not specified; E87.29 Other acidosis; D68.9 Coagulation defect, unspecified; M62.82 Rhabdomyolysis; E87.1 Hypo-osmolality and hyponatremia; F10.231 Alcohol dependence with withdrawal delirium; K70.10 Alcoholic hepatitis without ascites; D69.6 Thrombocytopenia, unspecified; F17.210 Nicotine dependence, cigarettes, uncomplicated; K21.9 Gastro-esophageal reflux disease without esophagitis; E16.2 Hypoglycemia, unspecified; G25.81 Restless legs syndrome; K70.40 Alcoholic hepatic failure without coma; K70.30 Alcoholic cirrhosis of liver without ascites; F41.9 Anxiety disorder, unspecified; L40.9 Psoriasis, unspecified; R16.1 Splenomegaly, not elsewhere classified; G40.909 Epilepsy, unspecified, not intractable, without status epilepticus; F31.9 Bipolar disorder, unspecified; E87.6 Hypokalemia; E83.51 Hypocalcemia; E83.39 Other disorders of phosphorus metabolism; E83.42 Hypomagnesemia; K70.0 Alcoholic fatty liver; D50.8 Other iron deficiency anemias; Y83.8 Other surgical procedures as the cause of abnormal reaction of the patient, or of later complication, without mention of misadventure at the time of the procedure; Z79.899 Other long term (current) drug therapy; Y92.89 Other specified places as the place of occurrence of the external cause; Z82.49 Family history of ischemic heart disease and other diseases of the circulatory system
CPT/HCPCS: 36410; 36415; 36430; 36600; 70450; 71045; 71250; 74018; 74176; 76700; 76937; 80048; 80053; 80069; 80074; 80305; 80320; 81001; 81025; 82140; 82248; 82272; 82330; 82728; 82803; 82948; 83010; 83036; 83540; 83550; 83605; 83615; 83690; 83735; 83880; 84100; 84134; 84145; 84439; 84443; 84484; 85007; 85008; 85018; 85025; 85027; 85045; 85384; 85397; 85610; 85730; 86704; 86706; 86870; 86885; 86900; 86901; 86902; 86905; 86920; 86922; 87040; 87045; 87046; 87070; 87077; 87081; 87088; 87186; 87324; 87340; 87449; 92508; 92616; 93005; 93308; 93970; 94002; 94003; 94760; 95816; 96365; 96375; 96376; 97110; 97116; 97161; 97530; 97535; 99285; A4314; A4333; A4615; A4620; A5200; A6212; A6213; A6250; A6258; A6260; A6402; A6449; C1751; C1752; C1758; E1594; G0257; G0378; J0131; J0456; J0696; J1630; J1644; J1720; J1815; J1940; J1956; J2060; J2150; J2248; J2250; J2371; J2405; J2470; J2919; J3010; J3260; J3360; J3372; J3411; J3475; J3480; J3490; J7030; J7040; J7042; J7050; J7060; J7070; J7120; P9016; P9035; P9047; Q0167; Q4081

== ENCOUNTER 2025-06-22 08:50 | Emergency (ER) | payer OTHER, MEDICAID ==
[~2025-06-22] VITALS: Ht 170.2 cm; Wt 72.2 kg
[~2025-06-22 08:50] MED LIST changes: +UNABLE TO OBTAIN
--- NOTE | 2025-06-22 09:19 | Physician Documentation ---
History of Present Illness ~ Chief Complaint: Vaginal Bleeding Stated Complaint: VOMITING/VAGINAL BLEEDING Time Seen by MD: 09:09 Primary Medical Doctor: Ron YORK HPI 45-year-old female presents to the ED with one week of excessive vaginal bleeding. States that she has had recent history with multiple medical problems including, Hypoglycemia, Alcohol abuse (last drink 1 week ago), alcoholic ketoacidosis, thrombocytopenia, and anemia. She states that after previously having vaginal bleeding her conceptor placing IUD which led to her eventually being critically ill septic in September and requiring long-term care. She has liver failure following sepsis. No other treatment performed for management of bleeding. Not on OCPs. Denies pelvic pain. Endorses nausea. She has had a few episodes of similar heavy vaginal bleeding beginning in her early 40's. She has required transfusions in the past. They occur at the same time in her cycle as her regular periods. Normally her periods have normal bleeding without excessive pain. No history of uterine fibroids, endometriosis, bleeding disorders. Medication Reconciliation Allergies: Coded Allergies: No Known Allergies (Unverified , 09/20/24) Scheduled Cyclobenzaprine* (Cyclobenzaprine*), 1 TAB PO Q8H Ferrous Sulfate (Feosol), 1 TAB PO DAILY, (Reported) Multivitamin with Folic Acid (Thera Tablet), 1 EACH PO Q24H Norgestimate-Ethinyl Estradiol (Ortho Tri-Cyclen), 1 TAB PO DAILY Pantoprazole Sodium (Pantoprazole Sodium), 40 MG PO BID Scheduled PRN ONDANSETRON ODT 4mg tablet (Ondansetron Odt), 1 TAB PO Q6H PRN PRN for nausea/vomiting Miscellaneous Medications Unable to Obtain Medications (Unable to Obtain Medications), (Reported) Past Medical History Past Medical History: No Pertinent History Past Surgical History: no surgical history Patient History: FH: diabetes mellitus FATHER (diabetic ) FH: hypertension FATHER (diabetic ) Paternal grandmother Paternal grandfather Alcohol Use: Occasionally Drug Use: none Lives In: Home Review of Systems All Other Systems at this time: Reviewed and Negative Physical Exam Vital Signs: Temperature: 99.4, Source: Oral, Heart Rate: 122, Respiratory Rate: 18, BP: 138/95, Pulse Oximetry: 99, Weight: 72.200 Oxygen Flow Rate: 0 Physical Exam VITALS: Reviewed and as above. GENERAL: Alert, no apparent distress. Tired-appearing. HEENT: Normocephalic, atraumatic, PERRL, EOMI, dry mucosa, no erythema RESPIRATORY: Lungs clear, normal breath sounds, no respiratory distress. CHEST: No accessory muscle use, no retractions CV: Regular rate, rhythm, no edema, no murmur, No: JVD GI: Soft, mild tenderness to palpation in the suprapubic region, bowels sounds present, no rebound, guarding, or rigidity BACK: No CVA tenderness, or swelling MUSCULOSKELETAL No deformities, no edema SKIN: Warm and dry, no rash, no pallor NEURO: Oriented x4, No motor or sensory deficit PSYCH: Normal mood and affect, no agitation Progress Results/Orders Reviewed/noted all lab results: Yes Results/Orders Completed Orders - DAYO POWELL COMMERCIAL INTERIOR DESIGNER Pt Inr (06/22/25 09:22) PTT (06/22/25 09:22) LA (06/22/25 09:22) MG (06/22/25 09:22) Normal Saline 1000ml (0.9% Sodium Chlori (06/22/25 09:25) Ondansetron Inj. (Zofran 4mg/2ml Vial) (06/22/25 10:15) Procalcitonin (06/22/25 10:29) Lactic,2hr (06/22/25 11:04) Medications Received in ER Medications (Trade) Dose Ordered Sig/Isadora Route PRN Reason Start Time Stop Time Status Last Admin Dose Admin (Zofran 4mg/2ml vial) 4 mg ONCE ONCE IV 06/22/25 10:15 06/22/25 10:16 DC 06/22/25 10:16 4 MG (Zofran 4mg/2ml vial) 4 mg ONCE ONCE IV 06/22/25 11:35 06/22/25 11:38 DC 06/22/25 11:43 4 MG (Protonix 40mg IV) 40 mg ONCE STAT IV 06/22/25 11:32 06/22/25 11:38 DC 06/22/25 11:43 40 MG Vital Signs 06/22/25 06/22/25 06/22/25 06/22/25 08:52 09:20 10:46 12:02 Temp 99.4 99.1 Pulse 122 94 97 Resp 18 16 16 B/P (MAP) 138/95 145/78 (100) 150/90 Pulse Ox 99 98 98 O2 Flow Rate 0 0 Laboratory Tests Test 06/22/25 09:23 06/22/25 10:34 06/22/25 10:51 06/22/25 10:55 White Blood Count 5.6 Red Blood Count 3.90 L Hemoglobin 11.6 L Hematocrit 35.7 Mean Corpuscular Volume 91.4 Mean Corpuscular Hemoglobin 29.9 Mean Corpuscular Hemoglobin Concent 32.6 L Red Cell Distribution Width 20.8 H Platelet Count 124 L Mean Platelet Volume 6.9 L Neutrophils (%) (Auto) 78.7 H Lymphocytes (%) (Auto) 12.2 L Monocytes (%) (Auto) 8.2 Eosinophils (%) (Auto) 0 Basophils (%) (Auto) 0.9 Neutrophils # (Auto) 4.4 Lymphocytes # (Auto) 0.7 L Monocytes # (Auto) 0.5 Eosinophils # (Auto) 0.0 Basophils # (Auto) 0.0 CBC Comment Platelet Estimate Decreased Red Blood Cell Morphology Perf Basophilic Stippling Anisocytosis 3+ Prothrombin Time 11.4 INR International Normalized Ratio 1.1 Activated Partial Thromboplast Time 25 Coagulation Comments Sodium Level 139 Potassium Level 3.2 L Chloride Level 98 L Carbon Dioxide Level 31.3 Anion Gap 10 Blood Urea Nitrogen 10 Creatinine 1.14 H Estimated GFR/1.73 m2 52 BUN/Creatinine Ratio 8.8 L Glucose Level 118 H Lactic Acid Level 2.3 H Calcium Level 9.6 Magnesium Level 2.2 Total Bilirubin 1.8 H Aspartate Amino Transf (AST/SGOT) 69 H Alanine Aminotransferase (ALT/SGPT) 43 Alkaline Phosphatase 121 H Total Protein 8.7 H Albumin 4.6 Globulin 4.1 Albumin/Globulin Ratio 1.1 Lipase 43 Chemistry Comments Procalcitonin < 0.05 Urine Specimen Description Other Urine Color Yellow Urine Clarity Clear Urine pH 8.5 Urine Specific [place] 1.015 Urine Protein 30 H Urine Glucose (UA) Negative Urine Ketones 15 H Urine Occult Blood Negative Urine Nitrite Negative Urine Bilirubin Small Urine Urobilinogen 0.2 Urine Leukocyte Esterase Negative Urine RBC 0-2 Urine WBC 5-10 H Urine Squamous Epithelial Cells Few Urine Transitional Epithelial Cells Few Urine Bacteria Few Urine Mucus Moderate Urine Culture Indicated Indicated Volume Urine Centrifuged 10 ml Urine Comment Urine HCG, Qualitative Negative Test 06/22/25 11:15 Lactic Acid Level 1.3 Microbiology Date/Time Source Procedure Growth Status 06/22/25 11:21 Urine Other Urine Culture - Preliminary Culture received. Resulted Medical Decision Making Additional information obtaine: old records Findings Initials concerns included menorrhagia, thrombocytopenia, anemia, sepsis, trauma. After evaluation of the patient it was determined that she was stable without evidence of severe anemia or infection. Her lactic acid was initally elevated but resolved with fluids. We will treat the patient for her menorrhagia with OCPs and discharge. She was given instructions to follow up with her CONSULTING DATABASE ADMINISTRATOR outpatient regarding her symptoms and strict return precautions. Urinary Diff Dx:Considerations: Include: Ovarian torsion, PID, UTI, Vaginitis Genital Diff Dx:Considerations: Include: Blood loss anemia, Dsymenorrhea, Hormonal, Menorrhagia, Menstrual bleeding, Physiologic discharge, , Trauma, Vaginitis Departure Disposition: HOME / SELF CARE / HOMELESS Impression: Primary Impression: Vaginal bleeding Additional Impression: Menorrhagia Condition: Stable Discharge Instructions: Menorrhagia Referrals: NO PRIMARY CARE PROVIDER (PCP) Prescriptions ONDANSETRON ODT 4mg tablet (ONDANSETRON ODT) 4 Mg Tab.rapdis 1 TAB PO Q6H PRN PRN for nausea/vomiting for 4 Days, #16 TAB 0 Refills Prov: DAYO POWELL NP 06/22/25 Norgestimate-Ethinyl Estradiol (Ortho Tri-Cyclen) [id number] 28 Tablet 1 TAB PO DAILY for 28 Days, #28 TAB 0 Refills Prov: DAYO POWELL NP 06/22/25 Education Educated: Patient Educated regarding: diagnosis Signature Scribe Signature: g Attestation: Scribed for Dayo Powell Medical Artist by Dayo Wilks NP . 06/22/25 18:09 f DAYO POWELL NP Jun 22, 2025 09:19 JOSIAS ZHAO MD Jun 22, 2025 09:36
[2025-06-22] MEDS: normal saline 1000ML IV soln IVB ONE (09:31)
[2025-06-22 09:41] LABS: MEAN PLATELET VOLUME 6.9 FL (7.4-10.4); RED CELL DISTRIBUTION WIDTH 20.8 % (11.5-14.5)
[2025-06-22 09:58] LABS: APTT 25 SECONDS (22-32); INR 1.1 INR
[2025-06-22 10:00] LABS: CREATININE 1.14 MG/DL (0.40-0.90); TOTAL CARBON DIOXIDE 31.3 MMOL/L (24-32); eCRCL 61 ML/MIN; eGFR 52 ML/MIN
[2025-06-22 10:02] LABS: PLATELET ESTIMATE DECREASED
[2025-06-22] MEDS: ondansetron/PF 4mg/2ml inj IV ONE ×2 (10:16→11:43)
[2025-06-22 10:46] VITALS: TEMP 99.1
[2025-06-22 11:10] LABS: LEUKOCYTE ESTERASE ,URINE NEGATIVE (Neg); NITRITES, URINE NEGATIVE (Neg); OCCULT BLOOD,URINE NEGATIVE (Neg)
[2025-06-22 11:11] LABS: URINE HCG NEGATIVE (NEG)
[2025-06-22 11:11] LABS: UA COLLECTION TYPE OTHER
--- NOTE | 2025-06-22 11:14 | RADIOLOGY REPORT ---
INDICATION: vaginal bleeding, pelvic pain TECHNIQUE: Multiple real-time grayscale transabdominal sonographic images along with color and duplex Doppler of the uterus and ovaries were obtained. COMPARISON: US ULTRASOUND PELVIS W/ORWO DPLX on DOS: 06/09/24 FINDINGS: The uterus measures 8.7 x 3.5 x 3.6 cm. The endometrial stripe measures 0.2 cm. Right ovary measures 2.1 x 1.9 x 1.5 cm with normal Doppler color flow Left ovary measures 3.0 x 2.0 x 1.7 cm with normal Doppler color flow IMPRESSION: 1. Grossly unremarkable pelvic ultrasound.
[2025-06-22 11:20] LABS: SQUAMOUS EPITHELIAL CELL,UR FEW /LPF (FEW)
[2025-06-22 11:21] LABS: MUCUS STRANDS MODERATE /LPF (Neg)
[2025-06-22] MEDS ORDERED: NORG1TAB90 PO (11:41)
[2025-06-22] MEDS ORDERED: ONDA-243 PO (11:42)
[2025-06-22 12:02] VITALS: BP 150/90; PULSE 97; RESP 16; O2SAT 98
== END 2025-06-22 12:09 | disposition home or self-care (01) ==
LOC: ER 08:51
DX: N93.9 Abnormal uterine and vaginal bleeding, unspecified (principal); N92.0 Excessive and frequent menstruation with regular cycle; Z79.899 Other long term (current) drug therapy; Z72.89 Other problems related to lifestyle
CPT/HCPCS: 36415; 76830; 76856; 80053; 81001; 81025; 83605; 83690; 83735; 84145; 85008; 85025; 85610; 85730; 86885; 86900; 86901; 87088; 93976; 96361; 96374; 96375; 96376; 99285; J2405; J2470; J7030; C1758